=== PATIENT | male | born 1965 | race Caucasian/White ===

== ENCOUNTER 2021-11-17 14:38 | Observation (INO) | payer SELFPAY ==
[2021-11-17] MEDS ORDERED: SODIUM CHLORIDE 0.9% 500 ML 500 ML IV STA (15:07)
[2021-11-17] MEDS ORDERED: NITROGLYCERIN OINT 1 INCH/GM PACKET TOPICAL STA (15:07)
[2021-11-17] MEDS ORDERED: ASPIRIN 81 MG PO STA (15:07)
--- NOTE | 2021-11-17 15:08 | ED ---
General Adult HPI - General Chief complaint: Chest Pain Stated complaint: Chest Pain, Rapid Heart Rate Time Seen by Provider: 11/17/21 14:55 Source: patient, family, RN notes reviewed, old records reviewed Mode of arrival: wheelchair - History of Present Illness Initial comments: This is a 56-year-old male presents emergency Department with a past medical history significant for smoking and high blood pressure. Patient also has a family history of heart disease with his mother having a heart attack in the past. Patient comes in today because the last 2 days been having some left- sided chest pain that radiates to his shoulder. Patient states it comes and goes for the last 2 days. Patient states he is somewhat short of breath with it. Patient denies any diaphoretic episodes. Patient denies any nausea. Patient denies abdominal pain patient denies nausea vomiting diarrhea. Patient was any recent fever chills or cough. Patient denies any swelling to her legs or calf tenderness. 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 - Related Data Home Medications Medication Instructions Recorded Confirmed No Known Home Medications 11/17/21 11/17/21 Allergies Allergy/AdvReac Type Severity Reaction Status Date / Time No Known Allergies Allergy Verified 11/17/21 15:42 Review of Systems ROS Statement: Those systems with pertinent positive or pertinent negative responses have been documented in the HPI. ROS Other: All systems not noted in ROS Statement are negative. Past Medical History Past Medical History: No Reported History History of Any Multi-Drug Resistant Organisms: None Reported Past Surgical History: Back Surgery Additional Past Surgical History / Comment(s): thumb Past Psychological History: No Psychological Hx Reported Smoking Status: Current every day smoker Past Alcohol Use History: None Reported Past Drug Use History: None Reported General Exam - General Exam Comments Initial Comments: GENERAL: Patient is well-developed and well-nourished. Patient is nontoxic and well- hydrated and is in mild distress. ENT: Neck is soft and supple. No significant lymphadenopathy is noted. Oropharynx is clear. Moist mucous membranes. Neck has full range of motion without eliciting any pain. EYES: The sclera were anicteric and conjunctiva were pink and moist. Extraocular movements were intact and pupils were equal round and reactive to light. Eyelids were unremarkable. PULMONARY: Unlabored respirations. Good breath sounds bilaterally. No audible rales rhonchi or wheezing was noted. CARDIOVASCULAR: There is a regular rate and rhythm without any murmurs gallops or rubs. ABDOMEN: Soft and nontender with normal bowel sounds. SKIN: Skin is clear with no lesions or rashes and otherwise unremarkable. NEUROLOGIC: Patient is alert and oriented x3. Cranial nerves II through XII are grossly intact. Motor and sensory are also intact. Normal speech, volume and content. Symmetrical smile. MUSCULOSKELETAL: Normal extremities with adequate strength and full range of motion. LYMPHATICS: No significant lymphadenopathy is noted PSYCHIATRIC: Normal psychiatric evaluation. Course Vital Signs 11/17/21 11/17/21 11/17/21 14:48 15:30 16:36 Temperature 98 F 98.7 F Pulse Rate 92 90 104 H Respiratory 18 18 18 Rate Blood Pressure 157/90 156/94 164/95 O2 Sat by Pulse 96 96 97 Oximetry Medical Decision Making - Medical Decision Making EKG shows sinus rhythm at 80 bpm AR interval is 193 QRS 97 Q-T intervals 341 QTC is 387. Patient's EKG shows no ST segment elevation or depression. Chest x-ray shows no acute abnormality. Patient received aspirin and Nitropaste to the emergency department. Patient stated that this seemed take away his pain currently. I decided to admit the patient secondary to his significant risk factors and the fact that he has not been worked up for this before. I spoke with Dr. Anguiano he agreed to admit the patient admitted the patient wrote admitting orders and consult to cardiology - Lab Data Result diagrams: 11/17/21 15:20 11/17/21 15:20 Lab Results 11/17/21 11/17/21 11/17/21 Range/Units 15:20 15:20 15:20 WBC 9.2 (3.8-10.6) k/uL RBC 5.63 (4.30-5.90) m/uL Hgb 16.7 (13.0-17.5) gm/dL Hct 51.9 (39.0-53.0) % MCV 92.2 (80.0-100.0) fL MCH 29.7 (25.0-35.0) pg MCHC 32.2 (31.0-37.0) g/dL RDW 12.7 (11.5-15.5) % Plt Count 309 (150-450) k/uL MPV 6.7 Neutrophils % 73 % Lymphocytes % 19 % Monocytes % 5 % Eosinophils % 1 % Basophils % 1 % Neutrophils # 6.8 (1.3-7.7) k/uL Lymphocytes # 1.8 (1.0-4.8) k/uL Monocytes # 0.5 (0-1.0) k/uL Eosinophils # 0.1 (0-0.7) k/uL Basophils # 0.1 (0-0.2) k/uL PT 10.6 (9.0-12.0) sec INR 1.0 (<1.2) APTT 24.9 (22.0-30.0) sec Sodium 139 (137-145) mmol/L Potassium 4.2 (3.5-5.1) mmol/L Chloride 102 (98-107) mmol/L Carbon Dioxide 30 (22-30) mmol/L Anion Gap 7 mmol/L BUN 25 H (9-20) mg/dL Creatinine 0.93 (0.66-1.25) mg/dL Est GFR (CKD-EPI)AfAm >90 (>60 ml/min/1.73 sqM) Est GFR (CKD-EPI)NonAf >90 (>60 ml/min/1.73 sqM) Glucose 104 H (74-99) mg/dL Calcium 10.3 H (8.4-10.2) mg/dL Magnesium 2.0 (1.6-2.3) mg/dL Total Bilirubin 0.7 (0.2-1.3) mg/dL AST 36 (17-59) U/L ALT 41 (4-49) U/L Alkaline Phosphatase 64 (38-126) U/L Troponin I (0.000-0.034) ng/mL Total Protein 8.3 H (6.3-8.2) g/dL Albumin 4.9 (3.5-5.0) g/dL 11/17/21 Range/Units 15:20 WBC (3.8-10.6) k/uL RBC (4.30-5.90) m/uL Hgb (13.0-17.5) gm/dL Hct (39.0-53.0) % MCV (80.0-100.0) fL MCH (25.0-35.0) pg MCHC (31.0-37.0) g/dL RDW (11.5-15.5) % Plt Count (150-450) k/uL MPV Neutrophils % % Lymphocytes % % Monocytes % % Eosinophils % % Basophils % % Neutrophils # (1.3-7.7) k/uL Lymphocytes # (1.0-4.8) k/uL Monocytes # (0-1.0) k/uL Eosinophils # (0-0.7) k/uL Basophils # (0-0.2) k/uL PT (9.0-12.0) sec INR (<1.2) APTT (22.0-30.0) sec Sodium (137-145) mmol/L Potassium (3.5-5.1) mmol/L Chloride (98-107) mmol/L Carbon Dioxide (22-30) mmol/L Anion Gap mmol/L BUN (9-20) mg/dL Creatinine (0.66-1.25) mg/dL Est GFR (CKD-EPI)AfAm (>60 ml/min/1.73 sqM) Est GFR (CKD-EPI)NonAf (>60 ml/min/1.73 sqM) Glucose (74-99) mg/dL Calcium (8.4-10.2) mg/dL Magnesium (1.6-2.3) mg/dL Total Bilirubin (0.2-1.3) mg/dL AST (17-59) U/L ALT (4-49) U/L Alkaline Phosphatase (38-126) U/L Troponin I <0.012 (0.000-0.034) ng/mL Total Protein (6.3-8.2) g/dL Albumin (3.5-5.0) g/dL Disposition Clinical Impression: Chest pain Disposition: ADMITTED IP TO THIS [facility] Referrals: None,Stated [Primary Care Provider] - 1-2 days Time of Disposition: 16:45
[2021-11-17 15:27] LABS: Basophils # (A) 0.1 k/uL (0-0.2); Basophils % (A) 1 %; Eosinophils # (A) 0.1 k/uL (0-0.7); Eosinophils % (A) 1 %; HCT 51.9 % (39.0-53.0); HGB 16.7 gm/dL (13.0-17.5); Lymphocytes # (A) 1.8 k/uL (1.0-4.8); Lymphocytes % (A) 19 %; MCH 29.7 pg (25.0-35.0); MCHC 32.2 g/dL (31.0-37.0); MCV 92.2 fL (80.0-100.0); Mean Platelet Volume 6.7; Monocytes # (A) 0.5 k/uL (0-1.0); Monocytes % (A) 5 %; Neutrophils # (A) 6.8 k/uL (1.3-7.7); Neutrophils % (A) 73 %; Platelet Count 309 k/uL (150-450); RBC 5.63 m/uL (4.30-5.90); RDW 12.7 % (11.5-15.5); WBC 9.2 k/uL (3.8-10.6)
[2021-11-17 15:35] LABS: Partial Thromboplastin Time 24.9 sec (22.0-30.0); Prothrombin Time 10.6 sec (9.0-12.0)
[2021-11-17 15:36] LABS: ALT 41 U/L (4-49); AST 36 U/L (17-59); African American GFR (CKD) >90 (>60 ml/min/1.73 sqM); Albumin 4.9 g/dL (3.5-5.0); Alkaline Phosphatase 64 U/L (38-126); Anion Gap 7 mmol/L; Blood Urea Nitrogen 25 mg/dL (9-20); Calcium 10.3 mg/dL (8.4-10.2); Carbon Dioxide 30 mmol/L (22-30); Chloride 102 mmol/L (98-107); Glucose 104 mg/dL (74-99); Non-African American GFR(CKD) >90 (>60 ml/min/1.73 sqM); Potassium 4.2 mmol/L (3.5-5.1); Sodium 139 mmol/L (137-145); Total Bilirubin 0.7 mg/dL (0.2-1.3); Total Protein 8.3 g/dL (6.3-8.2)
--- NOTE | 2021-11-17 15:55 | XR ---
EXAMINATION TYPE: XR chest 2V DATE OF EXAM: 11/17/2021 COMPARISON: None available HISTORY: Chest pain TECHNIQUE: Frontal and lateral views of the chest are obtained. FINDINGS: Grossly unremarkable lungs. No pleural effusion or pneumothorax. No cardiomegaly. Degenerative change s of the thoracic spine. IMPRESSION: No acute cardiopulmonary process.
[2021-11-17] MEDS ORDERED: NITROGLYCERIN SL TABS 0.4 MG TAB SUBLINGUAL PRN (16:53)
[2021-11-17] MEDS: NITROGLYCERIN OINT 1 INCH/GM PACKET TOPICAL SCH (19:09)
[2021-11-18] MEDS: NITROGLYCERIN OINT 1 INCH/GM PACKET TOPICAL SCH ×2 (01:10→05:57)
[2021-11-18 07:50] VITALS: PULSE 77
[2021-11-18] MEDS ORDERED: ASPIRIN 81 MG PO SCH (09:00)
[2021-11-18] MEDS ORDERED: ASPIRIN 325 MG TAB PO SCH (09:00)
--- NOTE | 2021-11-18 09:26 | P.CRDCN ---
History of Present Illness History of present illness: This is a 56 year old male with a past medical history of chronic nicotine dependence spoke 1.5PPD, hypertension. 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 We are asked to see in consultation for chest pain. He presents with left sided chest discomfort for 3 days. He works as a [employer]. His pain is non-exertional, non-radiating. It is reproducible on exam, tender to palpation to the left side of his chest. He denies any injury. He denies any associated symptoms. No shortness of breath, nausea, vomiting, diaphoresis, lightheadedness, dizziness, syncope or near syncope. He was recently diagnosed with hypertension, yesterday started on anti- hypertensive medication, unsure what medication. He is a current every day smoker smokes 1.5PP. He denies alcohol or illicit drug use He denies history of CAD, SC, Stroke, or diabetes. Family history includes his mother had a SC in her 70s. DIAGNOSTICS EKG reveals sinus rhythm, heart rate 88, T wave inversion in lead aVL, LVH, no significant ST-T wave abnormalities she just ischemia Telemetry tracings indicate sinus mechanism, heart rates [id number] Chest xray no acute cardiopulmonary process Laboratory reviewed, troponin negative 3, sodium 139, potassium 4.2, BUN 24, serum current 0.9, CBC unremarkable Current home medications include an antihypertensive patient is unsure of what medication this is REVIEW OF SYSTEMS At the time of my exam: CONSTITUTIONAL: Denies fever or chills. CARDIOVASCULAR: Denies chest pain, shortness of breath, orthopnea, PND or palpitations. RESPIRATORY: Denies cough. GASTROINTESTINAL: Denies abdominal pain, diarrhea, constipation, nausea or vomiting. MUSCULOSKELETAL: Denies myalgias. NEUROLOGIC: Denies numbness, tingling, headache or weakness. ENDOCRINE: Denies fatigue, weight change, polydipsia or polyurina. GENITOURINARY: Denies burning, hematuria or urgency with micturation. HEMATOLOGIC: Denies history of anemia or bleeding. PHYSICAL EXAMINATION Blood pressure 129/76, heart rate 77, afebrile, oxygen saturation is 95% on room air CONSTITUTIONAL: No apparent distress. HEENT: Head is normocephalic. Pupils are equal, round. Sclerae anicteric. Mucous membranes of the mouth are moist. No JVD. No carotid bruit. CHEST EXAMINATION: Lungs are diminished, decreased air exchange noted bilaterally to auscultation. There is left sided chest wall tenderness noted on palpation HEART EXAMINATION: Regular rate and rhythm. S1, S2 heard. No murmurs, gallops or rub. ABDOMEN: Soft, nontender. Positive bowel sounds. EXTREMITIES: 2+ peripheral pulses, no lower extremity edema and no calf tenderness. SKIN: Warm, dry NEUROLOGIC EXAMINATION: Patient is awake, alert and oriented x3. ASSESSMENT Chest pain, atypical, acute coronary syndrome has ruled out. Hypertension Chronic nicotine dependence Family history of coronary artery disease PLAN An acute coronary event has been ruled out with no EKG evidence of ischemia and negative cardiac enzymes. Perform Stress Echo test to assess for stress induced cardiac ischemia. If abnormal will consider coronary angiography. Smoking cessation discussed and highly recommended. If stress test is negative, no further inpatient workup from a cardiology pers pective for chest pain. Thank you kindly for this consultation. Nurse practitioner note has been reviewed by physician. Signing provider agrees with the documented findings, assessment, and plan of care. Past Medical History Past Medical History: Hypertension History of Any Multi-Drug Resistant Organisms: None Reported Past Surgical History: Back Surgery Additional Past Surgical History / Comment(s): thumb Past Anesthesia/Blood Transfusion Reactions: No Reported Reaction Past Psychological History: No Psychological Hx Reported Smoking Status: Current every day smoker Past Alcohol Use History: None Reported Past Drug Use History: Marijuana Additional Drug Use History / Comment(s): smokes 1.5 packs per day. occasional marijuana use. - Past Family History Mother Family Medical History: Cancer, Hypertension Additional Family Medical History / Comment(s): at age 73. Father Family Medical History: Cancer Additional Family Medical History / Comment(s): passed at age 50 of Cancer Medications and Allergies Home Medications Medication Instructions Recorded Confirmed Type No Known Home Medications 11/17/21 11/17/21 History Allergies Allergy/AdvReac Type Severity Reaction Status Date / Time No Known Allergies Allergy Verified 11/17/21 15:42 Physical Exam Vitals: Vital Signs Temp Pulse Pulse Resp BP BP BP 11/18/21 07:56 77 11/18/21 07:48 98.3 F 77 16 129/76 11/18/21 05:38 78 128/73 11/18/21 01:08 98.3 F 69 20 111/68 11/17/21 20:43 98.1 F 88 20 117/73 11/17/21 16:36 98.7 F 104 H 18 164/95 11/17/21 15:30 90 18 156/94 11/17/21 14:48 98 F 92 18 157/90 Pulse Ox 11/18/21 07:56 11/18/21 07:48 94 L 11/18/21 05:38 11/18/21 01:08 94 L 11/17/21 20:43 94 L 11/17/21 16:36 97 11/17/21 15:30 96 11/17/21 14:48 96 Intake and Output 11/17/21 11/18/21 11/18/21 22:59 06:59 14:59 Other: # Voids 0 1 Weight 75.296 kg Results 11/17/21 15:20 11/17/21 15:20 Cardiac Enzymes 11/17/21 11/17/21 11/17/21 Range/Units 15:20 15:20 18:04 AST 36 (17-59) U/L Troponin I <0.012 <0.012 (0.000-0.034) ng/mL 11/17/21 Range/Units 22:07 AST (17-59) U/L Troponin I <0.012 (0.000-0.034) ng/mL Coagulation 11/17/21 Range/Units 15:20 PT 10.6 (9.0-12.0) sec APTT 24.9 (22.0-30.0) sec CBC 11/17/21 Range/Units 15:20 WBC 9.2 (3.8-10.6) k/uL RBC 5.63 (4.30-5.90) m/uL Hgb 16.7 (13.0-17.5) gm/dL Hct 51.9 (39.0-53.0) % Plt Count 309 (150-450) k/uL Comprehensive Metabolic Panel 11/17/21 Range/Units 15:20 Sodium 139 (137-145) mmol/L Potassium 4.2 (3.5-5.1) mmol/L Chloride 102 (98-107) mmol/L Carbon Dioxide 30 (22-30) mmol/L BUN 25 H (9-20) mg/dL Creatinine 0.93 (0.66-1.25) mg/dL Glucose 104 H (74-99) mg/dL Calcium 10.3 H (8.4-10.2) mg/dL AST 36 (17-59) U/L ALT 41 (4-49) U/L Alkaline Phosphatase 64 (38-126) U/L Total Protein 8.3 H (6.3-8.2) g/dL Albumin 4.9 (3.5-5.0) g/dL Current Medications Generic Name Dose Route Start Last Admin Trade Name Freq PRN Reason Stop Dose Admin Aspirin 81 mg 11/18/21 09:00 Aspirin 81 Mg PO DAILY [facility] Nitroglycerin 0.4 mg 11/17/21 16:53 Nitroglycerin Sl Tabs 0.4 Mg Tab SUBLINGUAL Q5M PRN Chest Pain Nitroglycerin 1 inch 11/17/21 18:00 11/18/21 05:57 Nitroglycerin Oint 1 Inch/Gm Packet TOPICAL 1 inch Q6HR SUKUMAR Administration Intake and Output 11/17/21 11/18/21 11/18/21 22:59 06:59 14:59 Other: # Voids 0 1 Weight 75.296 kg 11/17/21 15:20 11/17/21 15:20
[2021-11-18 09:28] LABS: Chol/HDL Ratio 5.68 Ratio; LDL Cholesterol,Calculated 165.5 mg/dL (0.0-131.0)
--- NOTE | 2021-11-18 11:21 | P.STRESS ---
- Stress Test Note Stress Test Results/Findings: Exam Performed: stress echo exercise Exam Date: 11/18/21 Reason for Exam: cp Height: 5 ft 11 in Weight: 75.3 kg Protocol: cj Stage: 3 Duration of Exercise: 9 jaime Resting Heart Rate: 78 Resting Blood Pressure: 148/76 Maximum Achieved Heart Rate: 155 Maximum Achieved Blood Pressure: 209/74 85% PMHR: 140 100% PMHR: 165 METS: 7.5 Technologist Comment: Stress Test Results/Findings: This is a 56-year-old gentleman with history of hypertension, family history of ischemic heart disease and smoking history, being evaluated for cardiac status. Patient is admitted to the hospital with chest pain. Stress data: Baseline EKG showed sinus rhythm. Blood pressure at rest is 148/76 with a pulse rate of 78. Patient walked on a Cj protocol for 9 minutes achieving a maximum heart rate of 155 with a blood pressure of 209/74. EKGs taken during and after the x-ray did not reveal any infiltrate changes from baseline. Echo data: Baseline echo images showed normal wall motion and thickening. Exercise echo images showed augmentation of wall motion and thickening in all the segments. Final impression: #1. Negative stress test #2. Negative stress echo.
[2021-11-18 14:07] VITALS: BP 116/75; RESP 17; TEMP 98.2
--- NOTE | 2021-11-18 17:21 | HP ---
HISTORY AND PHYSICAL This is a 56-year-old white male, smoking, questionable hypertension of recent onset, family history of heart disease. He came in with some chest pain. The pain was reproducible in his chest when you pushed on his chest. He underwent a stress echo today, which was normal. He has been cleared for discharge. He has a negative D- dimer, negative chest x-ray. Home medications are negative. Allergies negative. Fourteen-point review of systems otherwise negative. 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 He was pulling something heavy, pulled something in his chest. He is tender on his chest, reproducible pain. On physical examination, vital signs are stable. Afebrile. Cardiovascular S1, S2. Lungs clear. GI soft. Hematology negative Homans. Psych fair mood and affect. Temperature 98.7, blood pressure 150s to 160s over 90 to 95, pulse 80s and 90s, respiratory rate 16 to 18. ASSESSMENT: 1. Chest pain secondary to musculoskeletal costochondritis, as he was tender and had reproducible pain. 2. Hypertension acceleration may be contributing to his chest pain. He has been started on a blood pressure pill, taking metoprolol 50 b.i.d., for which he just took one pill before he came in. He was told to continue with this as an outpatient until seen by primary care. MMODL / IJN: [id number] /
== END 2021-11-18 17:34 | disposition home or self-care (01) ==
LOC: EC 14:38 → 6NMEDSUR 17:01
PROVIDERS: ADMIT Family Medicine; ATTEND Family Medicine
DX: M94.0 Chondrocostal junction syndrome [Tietze] (principal); I10 Essential (primary) hypertension; F17.210 Nicotine dependence, cigarettes, uncomplicated; Z98.890 Other specified postprocedural states; Z82.49 Family history of ischemic heart disease and other diseases of the circulatory system; Z80.9 Family history of malignant neoplasm, unspecified
CPT/HCPCS: 96361 ×2; 96360; 99285; 36415; 93005; 93351; 85379; 80061; 80053; 83735; 84484; 85025; 85610; 85730; 71046; G0378 ×2

== ENCOUNTER 2024-06-19 13:20 | Inpatient (IN) | payer SELFPAY ==
--- NOTE | 2024-06-19 14:01 | ED ---
Abdominal Pain HPI - General Chief Complaint: Abdominal Pain Stated Complaint: ABD PAIN Time Seen by Provider: 06/19/24 13:41 Source: patient, RN notes reviewed, old records reviewed Mode of arrival: ambulatory Limitations: no limitations - History of Present Illness Initial Comments: This is a 59-year-old male to ER with 3 to 4 days of severe abdominal pain right lower quadrant abdominal pain and feels that he has a fever shaking and chills nausea positive vomiting no appetite MD Complaint: abdominal pain -: days(s) Location: RLQ Radiation: RLQ Migration to: RLQ, suprapubic Severity scale (1-10): 7 Quality: fullness, sharp Consistency: constant Improves With: nothing Worsens With: nothing Associated Symptoms: nausea, vomiting Treatments Prior to Arrival: other - Related Data Home Medications Medication Instructions Recorded Confirmed Atorvastatin [Lipitor] 40 mg PO DAILY 06/19/24 06/19/24 Losartan [Cozaar] 50 mg PO DAILY 06/19/24 06/19/24 Allergies Allergy/AdvReac Type Severity Reaction Status Date / Time No Known Allergies Allergy Verified 06/26/24 15:21 Review of Systems ROS Statement: Those systems with pertinent positive or pertinent negative responses have been documented in the HPI. ROS Other: All systems not noted in ROS Statement are negative. Past Medical History Past Medical History: Hyperlipidemia, Hypertension History of Any Multi-Drug Resistant Organisms: None Reported Past Surgical History: Back Surgery Additional Past Surgical History / Comment(s): thumb Past Anesthesia/Blood Transfusion Reactions: No Reported Reaction Past Psychological History: No Psychological Hx Reported Smoking Status: Current every day smoker Past Alcohol Use History: None Reported Past Drug Use History: Marijuana - Past Family History Mother Family Medical History: Cancer, Hypertension Additional Family Medical History / Comment(s): at age 73. Father Family Medical History: Cancer Additional Family Medical History / Comment(s): passed at age 50 of Cancer General Exam Limitations: no limitations General appearance: alert, in no apparent distress Head exam: Present: atraumatic, normocephalic, normal inspection Eye exam: Present: normal appearance, PERRL, EOMI. Absent: scleral icterus, conjunctival injection, periorbital swelling ENT exam: Present: normal exam, mucous membranes moist Neck exam: Present: normal inspection. Absent: tenderness, meningismus, lymphadenopathy Respiratory exam: Present: normal lung sounds bilaterally. Absent: respiratory distress, wheezes, rales, rhonchi, stridor Cardiovascular Exam: Present: regular rate, normal rhythm, normal heart sounds. Absent: systolic murmur, diastolic murmur, rubs, gallop, clicks GI/Abdominal exam: Present: soft, normal bowel sounds. Absent: distended, tenderness, guarding, rebound, rigid Extremities exam: Present: normal inspection, full ROM, normal capillary refill. Absent: tenderness, pedal edema, joint swelling, calf tenderness Back exam: Present: normal inspection Neurological exam: Present: alert, oriented X3, CN II-XII intact Psychiatric exam: Present: normal affect, normal mood Skin exam: Present: warm, dry, intact, normal color. Absent: rash Course Vital Signs 06/19/24 06/19/24 06/19/24 13:37 15:48 17:00 Temperature 99.8 F H 99.8 F H 99.7 F H Pulse Rate 113 H 93 97 Pulse Rate [ Supine] Respiratory 20 18 18 Rate Blood Pressure 130/77 137/80 132/79 Blood Pressure [Right Arm] O2 Sat by Pulse 95 94 L 97 Oximetry 06/19/24 17:15 Temperature 99.9 F H Pulse Rate Pulse Rate [ 86 Supine] Respiratory 16 Rate Blood Pressure Blood Pressure 128/69 [Right Arm] O2 Sat by Pulse 95 Oximetry - Reevaluation(s) Reevaluation #1: 06/19/24 14:00 Records reviewed Reevaluation #2: 06/19/24 16:10 patient with pain improved Reevaluation #3: 06/19/24 16:10 patient informed of results and questions answered Reevaluation #4: Was pt. sent in by a medical professional or institution (, PA, RN PRACTITIONER, urgent care, hospital, or usp...) When possible be specific @ -no Did you speak to anyone other than the patient for history (EMS, parent, family, police, friend...)? What history was obtained from this source @ -no Did you review nursing and triage notes (agree or disagree)? Why? @ -agree Are old charts reviewed (outside hosp., previous admission, EMS record, old EKG, old radiological studies, urgent care reports/EKG's, usp records)? Report findings @ -yes Differential Diagnosis (chest pain, altered mental status, abdominal pain women, abdominal pain men, vaginal bleeding, weakness, fever, dyspnea, syncope, headache, dizziness, GI bleed, back pain, seizure, CVA, palpatations, mental health, musculoskeletal)? @ -prior EKG interpreted by me (3pts min.). @ -yes X-rays interpreted by me (1pt min.). @ -no CT interpreted by me (1pt min.). @ -Yes acute appendicitis U/S interpreted by me (1pt. min.). @ -no What testing was considered but not performed or refused? (CT, X-rays, U/S, labs )? Why? @ -none What meds were considered but not given or refused? Why? @ -none Did you discuss the management of the patient with other professionals (professionals i.e. , PA, RN PRACTITIONER, lab, RT, psych nurse, child welfare social worker, insurance underwriter sales, teacher, staff submarine warfare officer, lining caser)? Give summary @ -no Was smoking cessation discussed for >3mins.? @ -no Was critical care preformed (if so, how long)? @ -no Were there social determinants of health that impacted care today? How? (Homelessness, low income, unemployed, alcoholism, drug addiction, transportation, low edu. Level, literacy, decrease access to med. care, group home, rehab)? @ -none Was there de-escalation of care discussed even if they declined (Discuss DNR or withdrawal of care, Hospice)? DNR status @ -no What co-morbidities impacted this encounter? (DM, HTN, Smoking, COPD, CAD, Cancer, CVA, ARF, Chemo, Hep., AIDS, mental health diagnosis, sleep apnea, morbid obesity)? @ -none Was patient admitted / discharged? Hospital course, mention meds given and route, prescriptions, significant lab abnormalities, going to OR and other pertinent info. @ - 59 male to ER for evaluation 2 to 3 days of abdominal pain right lower quadrant positive for acute appendicitis will admit for IV antibiotics surgical evaluation and treatment Admitted Undiagnosed new problem with uncertain prognosis? @ -no Drug Therapy requiring intensive monitoring for toxicity (Heparin, Nitro, Insulin, Cardizem)? @ -no Were any procedures done? @ -no Diagnosis/symptom? @ -abdominal pain acute appendicitis Acute, or Chronic, or Acute on Chronic? @ -Acute Uncomplicated (without systemic symptoms) or Complicated (systemic symptoms)? @ -Complicated Side effects of treatment? @ -no Exacerbation, Progression, or Severe Exacerbation? @ -exacerbation Poses a threat to life or bodily function? How? (Chest pain, [place], [place], pneumonia, PE, COPD, DKA, ARF, appy, cholecystitis, CVA, Diverticulitis, Homicidal, Suicidal, threat to staff... and all critical care pts) @ -yes yes acute appendicitis Reevaluation #5: Differential Abdominal Pain Men: Appendicitis, cholecystitis, diverticulosis, ischemic bowel, pancreatitis, hepatitis, UTI, gastroenteritis, AAA, incarcerated hernia, bowel obstruction, constipation, inflammatory bowel, hepatitis, peptic ulcer disease, splenic infarction, perforated viscus, testicular torsion, this is not meant to be an all-inclusive list - Consultations Consultation #1: Spoke with Dr. Fry who agrees to admit this patient Medical Decision Making - Medical Decision Making 59 male to ER for evaluation 2 to 3 days of abdominal pain right lower quadrant positive for acute appendicitis will admit for IV antibiotics surgical evaluation and treatment - Lab Data Result diagrams: 06/26/24 03:57 06/26/24 03:57 Lab Results 06/19/24 06/19/24 06/19/24 Range/Units 14:03 14:03 14:03 WBC 21.0 H (3.8-10.6) k/uL RBC 5.39 (4.30-5.90) m/uL Hgb 16.5 (13.0-17.5) gm/dL Hct 49.9 (39.0-53.0) % MCV 92.7 (80.0-100.0) fL MCH 30.6 (25.0-35.0) pg MCHC 33.0 (31.0-37.0) g/dL RDW 12.6 (11.5-15.5) % Plt Count 265 (150-450) k/uL MPV 6.6 Neutrophils % 86 % Lymphocytes % 6 % Monocytes % 6 % Eosinophils % 1 % Basophils % 0 % Neutrophils # 18.1 H (1.3-7.7) k/uL Lymphocytes # 1.3 (1.0-4.8) k/uL Monocytes # 1.2 H (0-1.0) k/uL Eosinophils # 0.2 (0-0.7) k/uL Basophils # 0.0 (0-0.2) k/uL PT 11.5 (10.0-12.5) sec INR 1.1 (<1.2) APTT 28.4 (22.0-30.0) sec Sodium (137-145) mmol/L Potassium (3.5-5.1) mmol/L Chloride (98-107) mmol/L Carbon Dioxide (22-30) mmol/L Anion Gap mmol/L BUN (9-20) mg/dL Creatinine (0.66-1.25) mg/dL Est GFR (CKD-EPI)AfAm (>60 ml/min/1.73 sqM) Est GFR (CKD-EPI)NonAf (>60 ml/min/1.73 sqM) Glucose (74-99) mg/dL Plasma Lactic Acid Brendan (0.7-2.0) mmol/L Calcium (8.4-10.2) mg/dL Total Bilirubin (0.2-1.3) mg/dL AST (17-59) U/L ALT (4-49) U/L Alkaline Phosphatase (38-126) U/L Total Protein (6.3-8.2) g/dL Albumin (3.5-5.0) g/dL Amylase (30-110) U/L Lipase (23-300) U/L Urine Color Colorless Urine Appearance Clear (Clear) Urine pH 7.0 (5.0-8.0) Ur Specific [place] 1.010 (1.001-1.035) Urine Protein Negative (Negative) Urine Glucose (UA) Negative (Negative) Urine Ketones Negative (Negative) Urine Blood Small H (Negative) Urine Nitrite Negative (Negative) Urine Bilirubin Negative (Negative) Urine Urobilinogen <2.0 (<2.0) mg/dL Ur Leukocyte Esterase Negative (Negative) Urine RBC 14 H (0-5) /hpf Urine WBC 1 (0-5) /hpf 06/19/24 06/19/24 Range/Units 14:03 14:03 WBC (3.8-10.6) k/uL RBC (4.30-5.90) m/uL Hgb (13.0-17.5) gm/dL Hct (39.0-53.0) % MCV (80.0-100.0) fL MCH (25.0-35.0) pg MCHC (31.0-37.0) g/dL RDW (11.5-15.5) % Plt Count (150-450) k/uL MPV Neutrophils % % Lymphocytes % % Monocytes % % Eosinophils % % Basophils % % Neutrophils # (1.3-7.7) k/uL Lymphocytes # (1.0-4.8) k/uL Monocytes # (0-1.0) k/uL Eosinophils # (0-0.7) k/uL Basophils # (0-0.2) k/uL PT (10.0-12.5) sec INR (<1.2) APTT (22.0-30.0) sec Sodium 135 L (137-145) mmol/L Potassium 4.5 (3.5-5.1) mmol/L Chloride 101 (98-107) mmol/L Carbon Dioxide 27 (22-30) mmol/L Anion Gap 7 mmol/L BUN 15 (9-20) mg/dL Creatinine 0.89 (0.66-1.25) mg/dL Est GFR (CKD-EPI)AfAm >90 (>60 ml/min/1.73 sqM) Est GFR (CKD-EPI)NonAf >90 (>60 ml/min/1.73 sqM) Glucose 116 H (74-99) mg/dL Plasma Lactic Acid Brendan 1.3 (0.7-2.0) mmol/L Calcium 9.4 (8.4-10.2) mg/dL Total Bilirubin 1.2 (0.2-1.3) mg/dL AST 29 (17-59) U/L ALT 32 (4-49) U/L Alkaline Phosphatase 63 (38-126) U/L Total Protein 7.5 (6.3-8.2) g/dL Albumin 4.6 (3.5-5.0) g/dL Amylase 56 (30-110) U/L Lipase 69 (23-300) U/L Urine Color Urine Appearance (Clear) Urine pH (5.0-8.0) Ur Specific [place] (1.001-1.035) Urine Protein (Negative) Urine Glucose (UA) (Negative) Urine Ketones (Negative) Urine Blood (Negative) Urine Nitrite (Negative) Urine Bilirubin (Negative) Urine Urobilinogen (<2.0) mg/dL Ur Leukocyte Esterase (Negative) Urine RBC (0-5) /hpf Urine WBC (0-5) /hpf - Radiology Data Radiology results: report reviewed (CT abd pelvis positive for acute appendicitis), image reviewed Disposition Clinical Impression: Abdominal pain, Acute appendicitis Disposition: ADMITTED IP TO THIS HOSP Condition: Serious Is patient prescribed a controlled substance at d/c from ED?: No Time of Disposition: 16:30
[2024-06-19] MEDS: ONDANSETRON 4 MG/2 ML VIAL IVP STA (14:40)
[2024-06-19] MEDS: ACETAMINOPHEN TAB 500 MG TAB PO STA (14:41)
[2024-06-19] MEDS: IBUPROFEN 800 MG TAB PO STA (14:41)
[2024-06-19] MEDS: SODIUM CHLORIDE 0.9% 1,000 ML IV STA ×2 (14:42)
[2024-06-19 14:43] LABS: Basophils % (A) 0 %; Eosinophils # (A) 0.2 k/uL (0-0.7); Eosinophils % (A) 1 %; HCT 49.9 % (39.0-53.0); HGB 16.5 gm/dL (13.0-17.5); Lymphocytes # (A) 1.3 k/uL (1.0-4.8); Lymphocytes % (A) 6 %; MCH 30.6 pg (25.0-35.0); MCV 92.7 fL (80.0-100.0); Mean Platelet Volume 6.6; Monocytes # (A) 1.2 k/uL (0-1.0); Monocytes % (A) 6 %; Neutrophils # (A) 18.1 k/uL (1.3-7.7); Neutrophils % (A) 86 %; Platelet Count 265 k/uL (150-450); RBC 5.39 m/uL (4.30-5.90); RDW 12.6 % (11.5-15.5)
[2024-06-19] MEDS: MORPHINE SULFATE 4 MG/ML SYRINGE IVP STA (14:56)
[2024-06-19] MEDS: PANTOPRAZOLE 40 MG/10 ML VIAL IVP STA (14:57)
[2024-06-19 14:58] LABS: INR 1.1 (<1.2); Partial Thromboplastin Time 28.4 sec (22.0-30.0); Prothrombin Time 11.5 sec (10.0-12.5)
[2024-06-19 15:07] LABS: ALT 32 U/L (4-49); African American GFR (CKD) >90 (>60 ml/min/1.73 sqM); Albumin 4.6 g/dL (3.5-5.0); Amylase 56 U/L (30-110); Anion Gap 7 mmol/L; Blood Urea Nitrogen 15 mg/dL (9-20); Calcium 9.4 mg/dL (8.4-10.2); Carbon Dioxide 27 mmol/L (22-30); Chloride 101 mmol/L (98-107); Glucose 116 mg/dL (74-99); Lipase 69 U/L (23-300); Non-African American GFR(CKD) >90 (>60 ml/min/1.73 sqM); Sodium 135 mmol/L (137-145); Total Bilirubin 1.2 mg/dL (0.2-1.3); Total Protein 7.5 g/dL (6.3-8.2)
[2024-06-19 15:13] LABS: AST 29 U/L (17-59); Alkaline Phosphatase 63 U/L (38-126); Potassium 4.5 mmol/L (3.5-5.1)
--- NOTE | 2024-06-19 15:29 | CT ---
EXAMINATION TYPE: CT abdomen pelvis w con CT DLP: 932.5 mGycm, Automated exposure control for dose reduction was used. DATE OF EXAM: 06/19/2024 3:20 PM COMPARISON: None CLINICAL INDICATION:Male, 59 years old with history of abdominal pain; Pt c/o RLQ pain with rebound t enderness and lowgrade fever TECHNIQUE: Standard CT of the abdomen and pelvis following the administration of 100 cc of Isovue 3 00 IV contrast material. Coronal and sagittal reformats were performed. FINDINGS: LOWER CHEST: Minimal posterior dependent subsegmental atelectasis is noted. ABDOMEN LIVER: Unremarkable GALLBLADDER AND BILE DUCTS: Unremarkable. PANCREAS: Unremarkable. SPLEEN: Unremarkable. ADRENAL GLANDS: Unremarkable. KIDNEYS AND URETERS: No evidence of hydronephrosis. The kidneys enhance symmetrically. Contrast is de monstrated within both collecting systems on the delayed phase. Nonobstructive right renal lower pole 3 mm metallic us. Nonobstructive left lower pole 5 mm calculus. PELVIS BLADDER: Unremarkable REPRODUCTIVE: Prostate is enlarged in size measuring 4.8 cm in transverse dimension. ABDOMEN & PELVIS STOMACH AND BOWEL: Stomach and duodenum are unremarkable. Dilated appendix measuring up to 1.2 cm in diameter with multiple appendicoliths. There is a 9 mm appendicolith at the base. Surrounding fat str anding and fluid identified. No free air. No evidence of bowel obstruction. PERITONEUM: No evidence of pneumoperitoneum. Trace free fluid in the right lower quadrant. VASCULATURE: Mild atherosclerotic calcifications are present throughout the abdominal aorta and its b ranches. No evidence of aortic aneurysm. Pelvic phleboliths. MUSCULOSKELETAL: No acute osseous abnormalities. Degenerative changes of the bilateral SI joints with anterior bridging. Multilevel degenerative changes of the visualized spine. Grade 1 anterolisthesis of L5 on S1 with bilateral pars defects. Chronic-appearing anterior wedging of the L1 vertebral body. No retropulsion. LYMPH NODES: No evidence for lymphadenopathy. SOFT TISSUE/ABDOMINAL WALL: Unremarkable IMPRESSION: 1. Acute uncomplicated appendicitis. 2. Nonobstructive bilateral renal calculi. Findings called to discuss with Dr. Kang at 3:27 PM on 06/19/2024. [facility], , 06/19/2024 3:27 PM
[2024-06-19 15:31] LABS: Appearance,Urine Clear (Clear); Bilirubin,Urine Negative (Negative); Blood,Urine Small (Negative); Color,Urine Colorless; Glucose,Urine (UA) Negative (Negative); Ketones,Urine Negative (Negative); Leukocyte Esterase,Urine Negative (Negative); Nitrite,Urine Negative (Negative); Protein,Urine Negative (Negative); RBC,Urine 14 /hpf (0-5); Urobilinogen,Urine <2.0 mg/dL (<2.0); WBC,Urine 1 /hpf (0-5)
[2024-06-19] MEDS ORDERED: ONDANSETRON 4 MG/2 ML VIAL IVP PRN (16:07)
[2024-06-19] MEDS ORDERED: NALOXONE 0.4 MG/ML 1 ML VIAL IV PRN (16:07)
[2024-06-19] MEDS: AMPICILLIN-SULBACTAM 3 GM in SODIUM CHLORIDE 0.9% 100 ML IVPB STA (16:35)
[2024-06-19] MEDS: IV FLUID CONTINUATION 1,000 ML IV ONE (17:17)
[2024-06-19] MEDS: LACTATED RINGERS 1,000 ML BAG IV STA (17:41)
[2024-06-19] MEDS ORDERED: fentaNYL (PF) 50 MCG/ML 2 ML AMP ONE (18:01)
[2024-06-19] MEDS ORDERED: GLYCOPYRROLATE 0.2 MG/ML 2 ML VIAL ONE (18:01)
[2024-06-19] MEDS ORDERED: ROCURONIUM 10 MG/ML (5 ML VIAL) IV ONE (18:01)
[2024-06-19] MEDS ORDERED: ONDANSETRON 4 MG/2 ML VIAL ONE (18:01)
[2024-06-19] MEDS ORDERED: KETOROLAC 15 MG/ML 1 ML VIAL ONE (18:01)
[2024-06-19] MEDS ORDERED: LIDOCAINE 1% INJ 10MG/ML (20 ML MDV) ONE (18:01)
[2024-06-19] MEDS ORDERED: DEXAMETHASONE SOD PHOSPHATE 4 MG/ML 1 ML VIAL ONE (18:01)
[2024-06-19] MEDS ORDERED: SUCCINYLCHOLINE CHLORIDE 200 MG/10 ML VIAL IV ONE (18:01)
[2024-06-19] MEDS ORDERED: PROPOFOL 10 MG/ML 20 ML VIAL IV ONE (18:01)
[2024-06-19] MEDS ORDERED: HEPARIN SODIUM,PORCINE 5,000 UNIT/ML 1 ML VIAL ONE (18:01)
[2024-06-19] MEDS ORDERED: ceFAZolin 1 GM/50 ML BAG (PMX) ONE (18:01)
[2024-06-19] MEDS ORDERED: NEOSTIGMINE 1 MG/ML 10 ML VIAL ONE (18:01)
[2024-06-19] MEDS ORDERED: MIDAZOLAM 2 MG/2 ML VIAL ONE (18:01)
[2024-06-19] MEDS: LIDOCAINE 1%-EPI 1:100,000 20 ML VIAL SQ ONE (18:24)
[2024-06-19] MEDS: metroNIDAZOLE-NS PMX 500 MG in SALINE 1 100ML.BAG IVPB STA (18:37)
--- NOTE | 2024-06-19 20:04 | P.GSHP ---
History of Present Illness H&P Date: 06/19/24 Patient is a 59 yo male presenting with 2-3 days of abdominal pain with associated nausea, no vomiting. Patient currently denies fevers, chills, shortness of breath or chest pain. Past Medical History Past Medical History: Hyperlipidemia, Hypertension History of Any Multi-Drug Resistant Organisms: None Reported Past Surgical History: Back Surgery Additional Past Surgical History / Comment(s): thumb Past Anesthesia/Blood Transfusion Reactions: No Reported Reaction Past Psychological History: No Psychological Hx Reported Smoking Status: Current every day smoker Past Alcohol Use History: None Reported Past Drug Use History: Marijuana - Past Family History Mother Family Medical History: Cancer, Hypertension Additional Family Medical History / Comment(s): at age 73. Father Family Medical History: Cancer Additional Family Medical History / Comment(s): passed at age 50 of Cancer Medications and Allergies Home Medications Medication Instructions Recorded Confirmed Type Atorvastatin [Lipitor] 40 mg PO DAILY 06/19/24 06/19/24 History Losartan [Cozaar] 50 mg PO DAILY 06/19/24 06/19/24 History Allergies Allergy/AdvReac Type Severity Reaction Status Date / Time No Known Allergies Allergy Verified 06/19/24 15:49 Surgical - Exam Osteopathic Statement: *. No significant issues noted on an osteopathic structural exam other than those noted in the History and Physical/Consult. Vital Signs Temp Pulse Resp BP Pulse Ox 99.8 F H 113 H 20 130/77 95 06/19/24 13:37 06/19/24 13:37 06/19/24 13:37 06/19/24 13:37 06/19/24 13:37 Limitations: no limitations General appearance: alert, in no apparent distress Head exam: Present: atraumatic, normocephalic, normal inspection Eye exam: Present: normal appearance, PERRL, EOMI. Absent: scleral icterus, conjunctival injection, periorbital swelling ENT exam: Present: normal exam, mucous membranes moist Neck exam: Present: normal inspection. Absent: tenderness, meningismus, lymphadenopathy Respiratory exam: Present: normal lung sounds bilaterally. Absent: respiratory distress, wheezes, rales, rhonchi, stridor Cardiovascular Exam: Present: regular rate, normal rhythm, normal heart sounds. Absent: systolic murmur, diastolic murmur, rubs, gallop, clicks GI/Abdominal exam: Present: soft, normal bowel sounds. Absent: distended, tenderness, guarding, rebound, rigid Extremities exam: Present: normal inspection, full ROM, normal capillary refill. Absent: tenderness, pedal edema, joint swelling, calf tenderness Back exam: Present: normal inspection Neurological exam: Present: alert, oriented X3, CN II-XII intact Psychiatric exam: Present: normal affect, normal mood Skin exam: Present: warm, dry, intact, normal color. Absent: rash Results - Labs 06/19/24 14:03 06/19/24 14:03 Abnormal Lab Results - Last 24 Hours (Table) 06/19/24 06/19/24 06/19/24 Range/Units 14:03 14:03 14:03 WBC 21.0 H (3.8-10.6) k/uL Neutrophils # 18.1 H (1.3-7.7) k/uL Monocytes # 1.2 H (0-1.0) k/uL Sodium 135 L (137-145) mmol/L Glucose 116 H (74-99) mg/dL Urine Blood Small H (Negative) Urine RBC 14 H (0-5) /hpf Diabetes panel 06/19/24 Range/Units 14:03 Sodium 135 L (137-145) mmol/L Potassium 4.5 (3.5-5.1) mmol/L Chloride 101 (98-107) mmol/L Carbon Dioxide 27 (22-30) mmol/L BUN 15 (9-20) mg/dL Creatinine 0.89 (0.66-1.25) mg/dL Glucose 116 H (74-99) mg/dL Calcium 9.4 (8.4-10.2) mg/dL AST 29 (17-59) U/L ALT 32 (4-49) U/L Alkaline Phosphatase 63 (38-126) U/L Total Protein 7.5 (6.3-8.2) g/dL Albumin 4.6 (3.5-5.0) g/dL Calcium panel 06/19/24 Range/Units 14:03 Calcium 9.4 (8.4-10.2) mg/dL Albumin 4.6 (3.5-5.0) g/dL Pituitary panel 06/19/24 Range/Units 14:03 Sodium 135 L (137-145) mmol/L Potassium 4.5 (3.5-5.1) mmol/L Chloride 101 (98-107) mmol/L Carbon Dioxide 27 (22-30) mmol/L BUN 15 (9-20) mg/dL Creatinine 0.89 (0.66-1.25) mg/dL Glucose 116 H (74-99) mg/dL Calcium 9.4 (8.4-10.2) mg/dL Adrenal panel 06/19/24 Range/Units 14:03 Sodium 135 L (137-145) mmol/L Potassium 4.5 (3.5-5.1) mmol/L Chloride 101 (98-107) mmol/L Carbon Dioxide 27 (22-30) mmol/L BUN 15 (9-20) mg/dL Creatinine 0.89 (0.66-1.25) mg/dL Glucose 116 H (74-99) mg/dL Calcium 9.4 (8.4-10.2) mg/dL Total Bilirubin 1.2 (0.2-1.3) mg/dL AST 29 (17-59) U/L ALT 32 (4-49) U/L Alkaline Phosphatase 63 (38-126) U/L Total Protein 7.5 (6.3-8.2) g/dL Albumin 4.6 (3.5-5.0) g/dL Assessment and Plan Assessment: 59 yo male w/ appendicitis -add rocephin/flagyl -OR stat -regular diet after surgery -anticipate discharge tomorrow afternoon after getting IV abx Time with Patient: Less than 30
[2024-06-19] MEDS: HYDROmorphone 1 MG/ML 1 ML SYRINGE IVP PRN (21:08)
[2024-06-19] MEDS: SODIUM CHLORIDE 0.9% 1,000 ML IV SCH (22:07)
[2024-06-20] MEDS: HYDROcodone/APAP 5-325MG 1 EACH TAB PO PRN (01:12)
[2024-06-20] MEDS: metroNIDAZOLE-NS PMX 500 MG in SALINE 1 100ML.BAG IVPB SCH (02:28)
[2024-06-20] MEDS: ACETAMINOPHEN TAB 325 MG TAB PO PRN (02:38)
--- NOTE | 2024-06-20 07:22 | P.OP ---
Date of Procedure: 06/19/24 Preoperative Diagnosis: appendicitis Postoperative Diagnosis: perforated appendicitis Procedure(s) Performed: laparoscopic appendectomy Anesthesia: RENNY Surgeon: Bro Krishnamurthy IV fluids (ml): 500 Urine output (ml): 150 Pathology: other (appendix) Condition: stable Disposition: PACU Indications for Procedure: appendicitis Operative Findings: perforated appendix with gross stool Description of Procedure: patient was brought to the operative suite where he was cleaned and draped in sterile fashion a timeout was performed and everyone agreed with the information resited. Next a #15 blade was then used to make an incision in the left upper quadrant and 2 more working ports were placed in the supraumbilical and supra pubic area. Once in the abdomen the patient was placed in Trendelenburg with right side up and the cecum was rotated anteriorly and the small bowel was moved cephalad.after doing this I discover that fat stranding of the appendiceal sail. I also discover the appendix burrowed in the peritoneal wall with active pus and what I assumed to be stool. The appendix was then grasped and dissected distal to proximal using a LigaSure device as I was doing this there were still active stool spilling from a perforation in the tip of the appendix. I dissected down to the base of the cecum using a LigaSure device. Once down to the base of the cecum I did use a 45 purple staple load to transect the appendix at the base. This was placed in an Endo Catch bag and removed from the umbilical port. The abdomen was irrigated and suctioned in the right lower quadrant. There was no purulent material in the pelvis. Once this was done a hemostatic, was performed in the base of the appendix were my staple line was observed. No bleeding and the staple line appeared to be satisfactory. I then used an 0 Vicryl stitch to close the fascia of the umbilicus. The rest of the remaining trochars were removed under direct visualization. In the surgical sites were closed using a combination of 3 and 4-0 Vicryl suture. The patient tolerated the procedure well and was then transported to PACU in stable condition.
[2024-06-20 09:38] LABS: Basophils % (A) 0 %; Eosinophils % (A) 0 %; HCT 42.5 % (39.0-53.0); HGB 14.1 gm/dL (13.0-17.5); Lymphocytes % (A) 7 %; MCHC 33.1 g/dL (31.0-37.0); MCV 93.7 fL (80.0-100.0); Monocytes # (A) 0.6 k/uL (0-1.0); Monocytes % (A) 4 %; Neutrophils # (A) 13.6 k/uL (1.3-7.7); Neutrophils % (A) 89 %; Platelet Count 220 k/uL (150-450); RBC 4.54 m/uL (4.30-5.90); RDW 12.7 % (11.5-15.5); WBC 15.4 k/uL (3.8-10.6)
--- NOTE | 2024-06-20 10:34 | P.PN ---
Subjective Progress Note Date: 06/20/24 SURGICAL PROGRESS NOTE CHIEF COMPLAINT: Perforated appendicitis HISTORY OF PRESENT ILLNESS: Patient is postop day #1 status post laparoscopic appendectomy. His pain is controlled. He is having flatus. Denies any nausea or vomiting. Patient had fever of 102 early this a.m. Tachycardia improved. WBC is down from 21-15 PHYSICAL EXAM: VITAL SIGNS: Reviewed. GENERAL: Well-developed in no acute distress. HEENT: No sclera icterus. Extraocular movements grossly intact. Moist buccal mucosa. Head is atraumatic, normocephalic. ABDOMEN: Soft. Nondistended. Incision sites are clean dry and intact with small amount of bruising. NEUROLOGIC: Alert and oriented. Cranial nerves II through XII grossly intact. ASSESSMENT: 1. Perforated appendicitis status post laparoscopic appendectomy PLAN: -Continue to monitor -Continue IV antibiotics -Continue regular diet -Encourage patient to use incentive spirometer -Encourage patient to ambulate -Continue Tylenol as needed for fevers -Possible discharge tomorrow -Medicine service consulted for medical management -GI prophylaxis Protonix and DVT prophylaxis subcu heparin Physician Hand Candy Cutter note has been reviewed by physician. Signing provider agrees with the documented findings, assessment, and plan of care. Objective - Vital Signs Vital signs: Vital Signs Temp 98.3 F 06/20/24 07:19 Pulse 95 06/20/24 07:19 Resp 16 06/20/24 07:19 BP 110/71 06/20/24 07:19 Pulse Ox 91 L 06/20/24 07:19 FiO2 Intake & Output 06/19/24 06/20/24 06/20/24 18:59 06:59 18:59 Intake Total 600 1320 Output Total 355 Balance 245 1320 Weight 79.832 kg 79.832 kg Intake: IV 600 Intake, IV Titration 1320 Amount Sodium Chloride 0.9% 1, 1170 000 ml @ 130 mls/hr IV . Q7H42M SUKUMAR Rx#:[id number] cefTRIAXone 1 gm In 50 Sodium Chloride 0.9% 50 ml @ 100 mls/hr IVPB Q24HR SUKUMAR Rx#:[id number] metroNIDAZOLE-NS PMX 500 100 mg In Saline 1 100ml.bag @ 100 mls/hr IVPB Q8H SUKUMAR Rx#:[id number] Output: Urine 340 Estimated Blood Loss 15 Other: Voiding Method Toilet Toilet # Voids 5 - Labs CBC & Chem 7: 06/20/24 09:23 06/19/24 14:03 Labs: Abnormal Lab Results - Last 24 Hours (Table) 06/19/24 06/19/24 06/19/24 Range/Units 14:03 14:03 14:03 WBC 21.0 H (3.8-10.6) k/uL Neutrophils # 18.1 H (1.3-7.7) k/uL Monocytes # 1.2 H (0-1.0) k/uL Sodium 135 L (137-145) mmol/L Glucose 116 H (74-99) mg/dL Urine Blood Small H (Negative) Urine RBC 14 H (0-5) /hpf 06/20/24 Range/Units 09:23 WBC 15.4 H (3.8-10.6) k/uL Neutrophils # 13.6 H (1.3-7.7) k/uL Monocytes # (0-1.0) k/uL Sodium (137-145) mmol/L Glucose (74-99) mg/dL Urine Blood (Negative) Urine RBC (0-5) /hpf Assessment and Plan Assessment: 59 yo male w/ perforated appendicitis -continue IV abx -pain control -regular diet -discussed w/ patient of perforation, also discussed expected course post operatively Time with Patient: Less than 30
[2024-06-20] MEDS: PANTOPRAZOLE 40 MG/10 ML VIAL IV SCH (10:44)
[2024-06-20] MEDS: ATORVASTATIN 40 MG TAB PO SCH (10:58)
[2024-06-20] MEDS: LOSARTAN 50 MG TAB PO SCH (10:58)
--- NOTE | 2024-06-20 15:42 | P.HPIM ---
History of Present Illness H&P Date: 06/20/24 Please consider this as medical consult note.... History of Presenting Illness: Patient is a pleasant 59-year-old male with a past medical history of hyperte nsion and hyperlipidemia. He presented to the emergency department on 06/19/2024 secondary to abdominal pain. CT revealed acute uncomplicated appendicitis. Patient concerns for sepsis with tachycardia, pyrexia, and elevated WBC of 21.0 upon arrival. Patient was admitted admitted under general surgery team and was taken for laparoscopic appendectomy. We were consulted for medical management. Patient seen and fully evaluated in room 457 status post completion of laparoscopic appendectomy. Patient reports tolerating clear liquid diet status post surgery and experiencing only mild postoperative abdominal distention with reports of tightness and mild to moderate pain. Denies having any other complaints at this time including dizziness, lightheadedness, chest pain, palpitations, shortness of breath, nausea, vomiting, or experiencing any difficulties with urinary function. Review of systems: Pertinent positives and negatives as discussed in HPI, a complete review of systems was performed and all other systems are negative. Physical exam: Vital signs reviewed and stable. General: Nontoxic, no distress and appears stated age. Derm: Skin warm and dry, normal coloration for ethnicity. Head: Atraumatic, normocephalic and symmetric. Eyes: EOM's intact, no lid lag, and anicteric sclera Mouth: no lip lesions, mucus membranes moist Cardiovascular: regular rate and rhythm with normal S1S2, no murmur, positive posterior tibial pulses bilaterally, and cap refill < 2 seconds. Lungs: Respirations even, regular, and unlabored on room air. Lungs CTA bilaterally, no rhonchi, no rales, no wheezing, and no accessory muscle usage. Abdominal: soft distended with diffuse tenderness upon palpation, no guarding, no appreciable organomegaly. Laparoscopic incisions intact. Ext: ROM intact. No gross muscle atrophy, no edema, no contractures Neuro: Speech clear, face symmetrical and CN II-XII grossly intact with no noted focal neuro deficits Psych: Alert and oriented to person, place, time, and situation. Appropriate and pleasant affect. Assessment and Plan of Care: Acute Appendicitis Sepsis upon arrival, secondary to above Status post laparoscopic appendectomy -Management per primary admitting general surgery team including DVT prophylaxis, pain management, wound/dressing management, and advancement of diet. -DVT prophylaxis currently with heparin 5000 units subcu every 12 hours. -Continue IV antibiotics with Flagyl 500 mg every 8 hours Rocephin 1 g every 24 hours. -Continue symptomatic care and pain management. -GI Prophylaxis with Protonix 40 mg daily. Hypertension -Monitor vital signs and continue daily medication regimen with losartan 50 mg daily. Hyperlipidemia -Continue daily medication regimen with atorvastatin 40 mg nightly. Data and imaging reviewed: -Reviewed postoperative labs. CBC showing improvement of leukocytosis from 21.0 down to 15.4. BMP unremarkable. Blood glucose 116. Urinalysis negative for infection. -Vital signs reviewed. Blood pressure 110/71, heart rate 95, respiratory rate 16, temp 98.3 F, and SpO2 of 91% on room air. Thank you for allowing us to participate in the care of this pleasant patient. Do not hesitate to contact us with questions. Someone can be reached from the [facility] hospitalist group all hours of the day at [phone] or via [employer]. Patient was seen independently by Nurse Practitioner. This document was prepared using [employer] dictation software. Please allow for errors in audiology director while rare they do occur. Franco Prajapati NP rendered care for this patient independently, reviewed the findings and plan as documented in the note above and agree with plan. I did not physically speak with or examine the patient on this date. Past Medical History Past Medical History: Hyperlipidemia, Hypertension History of Any Multi-Drug Resistant Organisms: None Reported Past Surgical History: Appendectomy, Back Surgery Additional Past Surgical History / Comment(s): thumb Past Anesthesia/Blood Transfusion Reactions: No Reported Reaction Past Psychological History: No Psychological Hx Reported Smoking Status: Current every day smoker Past Alcohol Use History: None Reported Past Drug Use History: Marijuana Additional Drug Use History / Comment(s): smokes 1.5 packs per day. occasional marijuana use. - Past Family History Mother Family Medical History: Cancer, Hypertension Additional Family Medical History / Comment(s): at age 73. Father Family Medical History: Cancer Additional Family Medical History / Comment(s): passed at age 50 of Cancer Medications and Allergies Home Medications Medication Instructions Recorded Confirmed Type Atorvastatin [Lipitor] 40 mg PO DAILY 06/19/24 06/19/24 History Losartan [Cozaar] 50 mg PO DAILY 06/19/24 06/19/24 History Allergies Allergy/AdvReac Type Severity Reaction Status Date / Time No Known Allergies Allergy Verified 06/19/24 15:49 Physical Exam Vitals: Vital Signs Temp Pulse Pulse Resp BP BP Pulse Ox 06/20/24 07:19 98.3 F 95 16 110/71 91 L 06/20/24 03:33 99.7 F H 110 H 96 06/20/24 02:21 102.9 F H 120 H 17 111/69 91 L 06/19/24 22:31 110 H 152/91 92 L 06/19/24 22:17 113 H 142/78 91 L 06/19/24 22:01 102 H 128/81 90 L 06/19/24 21:46 102 H 129/78 93 L 06/19/24 21:31 103 H 120/79 91 L 06/19/24 20:46 92 132/79 95 06/19/24 20:31 90 153/88 93 L 06/19/24 20:16 99.2 F 92 161/61 96 06/19/24 20:00 99.2 F 86 17 119/82 95 06/19/24 19:17 76 16 1337/71 94 L 06/19/24 19:02 98.6 F 89 16 164/81 96 06/19/24 17:15 99.9 F H 86 16 128/69 95 06/19/24 17:00 99.7 F H 97 18 132/79 97 06/19/24 15:48 99.8 F H 93 18 137/80 94 L 06/19/24 13:37 99.8 F H 113 H 20 130/77 95 Intake and Output 06/19/24 06/20/24 06/20/24 22:59 06:59 14:59 Intake Total 600 1320 Output Total 355 Balance 245 1320 Intake: IV 600 Intake, IV Titration 1320 Amount Sodium Chloride 0.9% 1, 1170 000 ml @ 130 mls/hr IV . Q7H42M [facility] Rx#:[id number] cefTRIAXone 1 gm In 50 Sodium Chloride 0.9% 50 ml @ 100 mls/hr IVPB Q24HR [facility] Rx#:[id number] metroNIDAZOLE-NS PMX 500 100 mg In Saline 1 100ml.bag @ 100 mls/hr IVPB Q8H [facility] Rx#:[id number] Output: Urine 340 Estimated Blood Loss 15 Other: Voiding Method Toilet Toilet # Voids 5 Weight 79.832 kg Results CBC & Chem 7: 06/20/24 09:23 06/19/24 14:03 Labs: Abnormal Lab Results - Last 24 Hours (Table) 06/19/24 06/19/24 06/19/24 Range/Units 14:03 14:03 14:03 WBC 21.0 H (3.8-10.6) k/uL Neutrophils # 18.1 H (1.3-7.7) k/uL Monocytes # 1.2 H (0-1.0) k/uL Sodium 135 L (137-145) mmol/L Glucose 116 H (74-99) mg/dL Urine Blood Small H (Negative) Urine RBC 14 H (0-5) /hpf Thrombosis Risk Factor Assmnt - Choose All That Apply Any of the Below Risk Factors Present?: Yes Each Factor Represents 1 point: Age 41-60 years Thrombosis Risk Factor Assessment Total Risk Factor Score: 1 Thrombosis Risk Factor Assessment Level: Low Risk
[2024-06-20] MEDS: HEPARIN SODIUM,PORCINE 5,000 UNIT/ML 1 ML VIAL SQ SCH (22:24)
[2024-06-21 08:27] LABS: Basophils # (A) 0.03 X 10*3/uL (0.00-0.10); Basophils % (A) 0.2 %; Eosinophils # (A) 0.01 X 10*3/uL (0.04-0.35); Eosinophils % (A) 0.1 %; HCT 38.9 % (39.6-50.0); Lymphocytes # (A) 1.39 X 10*3/uL (0.90-5.00); Lymphocytes % (A) 8.9 %; MCH 30.4 pg (27.0-32.0); MCHC 33.4 g/dL (32.0-37.0); MCV 90.9 FL (80.0-97.0); Mean Platelet Volume 9.4 FL (9.5-12.2); Monocytes # (A) 0.96 X 10*3/uL (0.20-1.00); Monocytes % (A) 6.1 %; NRBC Per 100 WBC 0 X 10*3/uL (0.00-0.01); Neutrophils # (A) 13.17 X 10*3/uL (1.80-7.70); Platelet Count 201 X 10*3/uL (140-440); RBC 4.28 X 10*6/uL (4.40-5.60); RDW 13.3 % (11.5-14.5); WBC 15.67 X 10*3/uL (4.50-10.00)
[2024-06-21 09:20] LABS: ALT 20 U/L (4-49); AST 22 U/L (17-59); African American GFR (CKD) >90 (>60 ml/min/1.73 sqM); Albumin 2.9 g/dL (3.5-5.0); Albumin/Globulin Ratio 1.3; Alkaline Phosphatase 58 U/L (38-126); Anion Gap 5 mmol/L; Blood Urea Nitrogen 16 mg/dL (9-20); Carbon Dioxide 24 mmol/L (22-30); Chloride 105 mmol/L (98-107); Globulin 2.2 g/dL; Glucose 99 mg/dL (74-99); Non-African American GFR(CKD) 78 (>60 ml/min/1.73 sqM); Potassium 3.8 mmol/L (3.5-5.1); Sodium 134 mmol/L (137-145); Total Bilirubin 0.8 mg/dL (0.2-1.3); Total Protein 5.1 g/dL (6.3-8.2)
[2024-06-21] MEDS: PIPERACILLIN-TAZOBACTAM 3.375 GM in SODIUM CHLORIDE 0.9% 100 ML IVPB SCH (10:19)
--- NOTE | 2024-06-21 12:59 | P.PN ---
Subjective Progress Note Date: 06/21/24 SURGICAL PROGRESS NOTE CHIEF COMPLAINT: Perforated appendicitis HISTORY OF PRESENT ILLNESS: Patient is postop day #2 status post laparoscopic appendectomy. Patient does complain of abdominal pain mostly incisional. He is having flatus. He does report pain with coughing. He did have a fever of 102.4 last night. He has been mildly tachycardic. WBC staying about the same at 15.6 PHYSICAL EXAM: VITAL SIGNS: Reviewed. GENERAL: Well-developed in no acute distress. HEENT: No sclera icterus. Extraocular movements grossly intact. Moist buccal mucosa. Head is atraumatic, normocephalic. ABDOMEN: Soft. Nondistended. Incision sites are clean dry and intact with small amount of bruising. Mild tenderness at incision sites and in the right lower quadrant NEUROLOGIC: Alert and oriented. Cranial nerves II through XII grossly intact. ASSESSMENT: 1. Perforated appendicitis status post laparoscopic appendectomy PLAN: -Due to fevers and leukocytosis will change antibiotics to IV Zosyn -Repeat CBC in a.m. -Continue to monitor for fevers -Encourage patient to use incentive spirometer -Continue regular diet -GI prophylaxis Protonix and DVT prophylaxis subcu heparin Physician Seafood Fisherman note has been reviewed by physician. Signing provider agrees with the documented findings, assessment, and plan of care. Attestation Patient seen and examined at bedside. Status post laparoscopic appendectomy for perforated appendicitis. He did have multiple febrile episodes overnight and continues to have leukocytosis. We will change antibiotics to Zosyn today. Continue to increase activity. Recommended incentive spirometry. Patient does state pain is improving. He is having bowel function. Continue diet. Bethany Sierra, DO Objective - Vital Signs Vital signs: Vital Signs Temp 99.0 F 06/21/24 07:36 Pulse 108 H 06/21/24 07:36 Resp 17 06/21/24 07:36 BP 112/67 06/21/24 07:36 Pulse Ox 93 L 06/21/24 07:36 FiO2 Intake & Output 06/20/24 06/21/24 06/21/24 18:59 06:59 18:59 Intake Total 240 Balance 240 Intake: Oral 240 Other: Voiding Method Toilet # Voids 3 2 - Labs CBC & Chem 7: 06/21/24 05:37 06/21/24 05:37 Labs: Abnormal Lab Results - Last 24 Hours (Table) 06/21/24 06/21/24 Range/Units 05:37 05:37 WBC 15.67 H (4.50-10.00) X 10*3/uL RBC 4.28 L (4.40-5.60) X 10*6/uL Hct 38.9 L (39.6-50.0) % MPV 9.4 L (9.5-12.2) FL Immature Gran # 0.11 H (0.00-0.04) X 10*3/uL Neutrophils # 13.17 H (1.80-7.70) X 10*3/uL Eosinophils # 0.01 L (0.04-0.35) X 10*3/uL Sodium 134 L (137-145) mmol/L Calcium 8.0 L (8.4-10.2) mg/dL Total Protein 5.1 L (6.3-8.2) g/dL Albumin 2.9 L (3.5-5.0) g/dL
--- NOTE | 2024-06-21 14:07 | P.PN ---
Subjective Progress Note Date: 06/21/24 Hospital course: Patient is a pleasant 59-year-old male with a past medical history of hypertension and hyperlipidemia. He presented to the emergency department on 06/19/2024 secondary to abdominal pain. CT revealed acute uncomplicated appendicitis. Patient concerns for sepsis with tachycardia, pyrexia, and elevated WBC of 21.0 upon arrival. Patient was admitted admitted under general surgery team and was taken for laparoscopic appendectomy. We were consulted for medical management. Physical exam: Patient seen and fully evaluated at bedside this morning. He is currently s itting up in chair at bedside and reports continued mild postoperative pain but states slight improvement from yesterday. Patient again febrile overnight with a temp elevated as high as 102.4 F. He is tolerating oral intake and denies having any nausea or vomiting. Vital signs reviewed and stable. General: Nontoxic, no distress and appears stated age. Derm: Skin warm and dry, normal coloration for ethnicity. Head: Atraumatic, normocephalic and symmetric. Eyes: EOM's intact, no lid lag, and anicteric sclera Mouth: no lip lesions, mucus membranes moist Cardiovascular: regular rate and rhythm with normal S1S2, no murmur, positive posterior tibial pulses bilaterally, and cap refill < 2 seconds. Lungs: Respirations even, regular, and unlabored on room air. Lungs CTA bilaterally, no rhonchi, no rales, no wheezing, and no accessory muscle usage. Abdominal: soft distended with diffuse tenderness upon palpation, no guarding, no appreciable organomegaly. Laparoscopic incisions intact. Ext: ROM intact. No gross muscle atrophy, no edema, no contractures Neuro: Speech clear, face symmetrical and CN II-XII grossly intact with no noted focal neuro deficits Psych: Alert and oriented to person, place, time, and situation. Appropriate and pleasant affect. Assessment and Plan of Care: Sepsis on admission, secondary to acute appendicitis Acute Appendicitis Status post laparoscopic appendectomy -Management per primary admitting general surgery team including DVT prophylaxis, pain management, wound/dressing management, and advancement of diet. -DVT prophylaxis currently with heparin 5000 units subcu every 12 hours. -Rocephin and Flagyl discontinued secondary to persistent pyrexia and leukocytosis. Patient started on IV antibiotics with Zosyn 3.375 g every 8 hours. -Continue symptomatic care and pain management. -GI Prophylaxis with Protonix 40 mg daily. Hypertension -Monitor vital signs and continue daily medication regimen with losartan 50 mg daily. Hyperlipidemia -Continue daily medication regimen with atorvastatin 40 mg nightly. Data and imaging reviewed: -Morning labs reviewed. CBC showing persistent leukocytosis with WBC count of 15.67. BMP showing mild hyponatremia with sodium of 134 otherwise normal findings. Blood glucose 99. Magnesium 2.0. Liver profile unremarkable. Albumin low at 2.9. -Vital signs reviewed. Blood pressure 112/67, heart rate 108, respiratory rate 17, temp 99.0 F, and SpO2 of 93% on 2 L. Temperature high over the past 24 hours is 102.4 F.. Thank you for allowing us to participate in the care of this pleasant patient. Do not hesitate to contact us with questions. Someone can be reached from the [facility] hospitalist group all hours of the day at [phone] or via [employer]. Patient was seen independently by Nurse Practitioner. This document was prepared using Meet[employer] dictation software. Please allow for errors in pulmonary fellow while rare they do occur. Franco Prajapati NP rendered care for this patient independently, reviewed the findings and plan as documented in the note above and agree with plan. I did not physically speak with or examine the patient on this date. Objective - Vital Signs Vital signs: Vital Signs Temp 101.9 F H 06/21/24 02:00 Pulse 98 06/21/24 02:00 Resp 20 06/21/24 02:00 BP 124/76 06/21/24 02:00 Pulse Ox 91 L 06/21/24 02:00 FiO2 Intake & Output 06/20/24 06/21/24 06/21/24 18:59 06:59 18:59 Intake Total 240 Balance 240 Intake: Oral 240 Other: Voiding Method Toilet # Voids 3 2 - Labs CBC & Chem 7: 06/21/24 05:37 06/21/24 05:37 Labs: Abnormal Lab Results - Last 24 Hours (Table) 06/20/24 Range/Units 09:23 WBC 15.4 H (3.8-10.6) k/uL Neutrophils # 13.6 H (1.3-7.7) k/uL
[2024-06-22] MEDS: IBUPROFEN 400 MG TAB PO PRN (02:38)
[2024-06-22 08:39] LABS: Basophils # (A) 0.02 X 10*3/uL (0.00-0.10); Basophils % (A) 0.2 %; Eosinophils % (A) 0.8 %; HCT 34.2 % (39.6-50.0); HGB 11.6 g/dL (13.0-17.0); Lymphocytes # (A) 1.21 X 10*3/uL (0.90-5.00); Lymphocytes % (A) 9.8 %; MCH 31.4 pg (27.0-32.0); MCHC 33.9 g/dL (32.0-37.0); MCV 92.4 FL (80.0-97.0); Mean Platelet Volume 9.5 FL (9.5-12.2); Monocytes # (A) 0.86 X 10*3/uL (0.20-1.00); NRBC Per 100 WBC 0 X 10*3/uL (0.00-0.01); Neutrophils % (A) 81.6 %; Platelet Count 207 X 10*3/uL (140-440); RDW 13.5 % (11.5-14.5); WBC 12.36 X 10*3/uL (4.50-10.00)
[2024-06-22 09:04] LABS: ALT 28 U/L (4-49); AST 33 U/L (17-59); African American GFR (CKD) >90 (>60 ml/min/1.73 sqM); Albumin 2.7 g/dL (3.5-5.0); Albumin/Globulin Ratio 1.2; Alkaline Phosphatase 62 U/L (38-126); Anion Gap 5 mmol/L; Blood Urea Nitrogen 15 mg/dL (9-20); Calcium 7.7 mg/dL (8.4-10.2); Carbon Dioxide 24 mmol/L (22-30); Chloride 108 mmol/L (98-107); Globulin 2.3 g/dL; Glucose 100 mg/dL (74-99); Non-African American GFR(CKD) 83 (>60 ml/min/1.73 sqM); Potassium 3.7 mmol/L (3.5-5.1); Sodium 137 mmol/L (137-145); Total Bilirubin 0.7 mg/dL (0.2-1.3)
--- NOTE | 2024-06-22 13:31 | P.PN ---
Subjective Progress Note Date: 06/22/24 SURGICAL PROGRESS NOTE CHIEF COMPLAINT: Perforated appendicitis HISTORY OF PRESENT ILLNESS: Patient is postop day #3 status post laparoscopic appendectomy. Patient reports no increase in pain. He reports his pain is tolerable. Denies any nausea or vomiting. He has had a bowel movement. Patient continues to have fevers. Tmax of 101.4. He was mildly tachycardic. White count did decrease from 15-12. Hemoglobin has dropped from 13-11. Patient has been receiving IV fluids at 130 mL/h. Repeat vitals patient has had no further fever. And heart rate has improved. Antibiotics changed yesterday from Rocephin and Flagyl to Zosyn. PHYSICAL EXAM: VITAL SIGNS: Reviewed. GENERAL: Well-developed in no acute distress. HEENT: No sclera icterus. Extraocular movements grossly intact. Moist buccal mucosa. Head is atraumatic, normocephalic. ABDOMEN: Soft. Nondistended. Incision sites are clean dry and intact with small amount of bruising. Mild tenderness at incision sites NEUROLOGIC: Alert and oriented. Cranial nerves II through XII grossly intact. ASSESSMENT: 1. Perforated appendicitis status post laparoscopic appendectomy PLAN: -Consult infectious disease due to recurrent fevers -Encourage patient to ambulate in hallway -Encourage patient to use incentive spirometer -Continue IV Zosyn -Continue regular diet -Repeat CBC in a.m. -GI prophylaxis Protonix and DVT prophylaxis subcu heparin Physician Operations Intelligence Superintendent note has been reviewed by physician. Signing provider agrees with the documented findings, assessment, and plan of care. Objective - Vital Signs Vital signs: Vital Signs Temp 98.1 F 06/22/24 11:00 Pulse 72 06/22/24 11:00 Resp 18 06/22/24 11:00 BP 108/68 06/22/24 11:00 Pulse Ox 97 06/22/24 11:00 FiO2 Intake & Output 06/21/24 06/22/24 06/22/24 18:59 06:59 18:59 Intake Total 2490 Balance 2490 Intake: Intake, IV Titration 1530 Amount Piperacillin-Tazobactam 3 100 .375 gm In Sodium Chloride 0.9% 100 ml @ 25 mls/hr IVPB Q8H [facility] Rx#: [id number] Sodium Chloride 0.9% 1, 1430 000 ml @ 130 mls/hr IV . Q7H42M [facility] Rx#:[id number] Oral 960 Other: Voiding Method Toilet Toilet # Voids 3 4 - Labs CBC & Chem 7: 06/22/24 05:54 06/22/24 08:35 Labs: Abnormal Lab Results - Last 24 Hours (Table) 06/22/24 06/22/24 Range/Units 05:54 08:35 WBC 12.36 H (4.50-10.00) X 10*3/uL RBC 3.70 L (4.40-5.60) X 10*6/uL Hgb 11.6 L (13.0-17.0) g/dL Hct 34.2 L (39.6-50.0) % Immature Gran # 0.07 H (0.00-0.04) X 10*3/uL Neutrophils # 10.10 H (1.80-7.70) X 10*3/uL Chloride 108 H (98-107) mmol/L Glucose 100 H (74-99) mg/dL Calcium 7.7 L (8.4-10.2) mg/dL Total Protein 5.0 L (6.3-8.2) g/dL Albumin 2.7 L (3.5-5.0) g/dL
--- NOTE | 2024-06-22 18:10 | P.PN ---
Subjective Progress Note Date: 06/22/24 Hospital course: Patient is a pleasant 59-year-old male with a past medical history of hypertension and hyperlipidemia. He presented to the emergency department on 06/19/2024 secondary to abdominal pain. CT revealed acute uncomplicated appendicitis. Patient concerns for sepsis with tachycardia, pyrexia, and elevated WBC of 21.0 upon arrival. Patient was admitted admitted under general surgery team and was taken for laparoscopic appendectomy. We were consulted for medical management. Physical exam: Patient seen and fully evaluated at bedside this morning. He is currently s itting up in chair at bedside and continues to report improvement of postoperative pain. Patient continues to run elevated temps as high as 101.4 F this morning. Discussed further with patient he does report an occasional cough otherwise states no complaints and again states abdominal pain is improving. Patient encouraged to ambulate and use incentive spirometer 10-15 times hourly while awake. Vital signs reviewed and stable. General: Nontoxic, no distress and appears stated age. Derm: Skin warm and dry, normal coloration for ethnicity. Head: Atraumatic, normocephalic and symmetric. Eyes: EOM's intact, no lid lag, and anicteric sclera Mouth: no lip lesions, mucus membranes moist Cardiovascular: regular rate and rhythm with normal S1S2, no murmur, positive posterior tibial pulses bilaterally, and cap refill < 2 seconds. Lungs: Respirations even, regular, and unlabored on room air. Lungs CTA bilaterally, no rhonchi, no rales, no wheezing, and no accessory muscle usage. Abdominal: soft distended with diffuse tenderness upon palpation, no guarding, no appreciable organomegaly. Laparoscopic incisions intact. Ext: ROM intact. No gross muscle atrophy, no edema, no contractures Neuro: Speech clear, face symmetrical and CN II-XII grossly intact with no noted focal neuro deficits Psych: Alert and oriented to person, place, time, and situation. Appropriate and pleasant affect. Assessment and Plan of Care: Sepsis on admission, secondary to acute appendicitis Acute Appendicitis Status post laparoscopic appendectomy -Management of DVT prophylaxis, pain management, wound/dressing management, and per primary admitting general surgery team. -DVT prophylaxis currently with heparin 5000 units subcu every 12 hours. -Continue IV antibiotics with Zosyn 3.375 g every 8 hours. -Order placed for blood culture along with Cepheid 4 Plex viral panel secondary to persistent fevers. -Continue symptomatic care and pain management. -GI Prophylaxis with Protonix 40 mg daily. Hypertension -Monitor vital signs and continue daily medication regimen with losartan 50 mg daily. Hyperlipidemia -Continue daily medication regimen with atorvastatin 40 mg nightly. Data and imaging reviewed: -Morning labs reviewed. CBC showing movement of leukocytosis with WBC count decreasing to 12.36 and stable normocytic anemia with hemoglobin of 11.6. BMP showing mild hypercarbia with bicarb of 108 otherwise normal findings. Blood glucose 100. Liver profile unremarkable with the exception of hypoalbuminemia with albumin of 2.7. -Vital signs reviewed. Blood pressure 100/67, heart rate 66, respiratory rate 18, temp 98.0 F, and SpO2 of 95% on room air.. Temperature high over the past 24 hours is 101.4 F.. Thank you for allowing us to participate in the care of this pleasant patient. Do not hesitate to contact us with questions. [facility] all hours of the day at [phone] or via [employer]. Patient was seen independently by Nurse Practitioner. This document was prepared using [employer] dictation software. Please allow for errors in lead sustainability specialist while rare they do occur. Franco Prajapati NP rendered care for this patient independently, reviewed the findings and plan as documented in the note above and agree with plan. I did not physically speak with or examine the patient on this date. Objective - Vital Signs Vital signs: Vital Signs Temp 98 F 06/22/24 07:16 Pulse 66 06/22/24 07:16 Resp 18 06/22/24 07:16 BP 100/67 06/22/24 07:16 Pulse Ox 95 06/22/24 07:16 FiO2 Intake & Output 06/21/24 06/22/24 06/22/24 18:59 06:59 18:59 Intake Total 2490 Balance 2490 Intake: Intake, IV Titration 1530 Amount Piperacillin-Tazobactam 3 100 .375 gm In Sodium Chloride 0.9% 100 ml @ 25 mls/hr IVPB Q8H SU[facility]AR Rx#: [id number] Sodium Chloride 0.9% 1, 1430 000 ml @ 130 mls/hr IV . Q7H42M [facility] Rx#:[id number] Oral 960 Other: Voiding Method Toilet # Voids 3 4 - Labs CBC & Chem 7: 06/22/24 05:54 06/22/24 08:35 Labs: Abnormal Lab Results - Last 24 Hours (Table) 06/21/24 06/21/24 Range/Units 05:37 05:37 WBC 15.67 H (4.50-10.00) X 10*3/uL RBC 4.28 L (4.40-5.60) X 10*6/uL Hct 38.9 L (39.6-50.0) % MPV 9.4 L (9.5-12.2) FL Immature Gran # 0.11 H (0.00-0.04) X 10*3/uL Neutrophils # 13.17 H (1.80-7.70) X 10*3/uL Eosinophils # 0.01 L (0.04-0.35) X 10*3/uL Sodium 134 L (137-145) mmol/L Calcium 8.0 L (8.4-10.2) mg/dL Total Protein 5.1 L (6.3-8.2) g/dL Albumin 2.9 L (3.5-5.0) g/dL
--- NOTE | 2024-06-22 22:29 | P.CONS ---
History of Present Illness - Reason for Consult Consult date: 06/22/24 Fever, perforated appendicitis Requesting physician: Ryann Lema - Chief Complaint Abdominal pain x few days - History of Present Illness Patient is a 59-year-old male with a past medical history significant for hypertension hyperlipidemia presenting to the hospital 3 days ago for evaluation of abdominal pain patient has been diagnosed with perforated append icitis in this patient who is status post laparoscopic appendectomy completed on 06/19/2024 patient has been in the hospital recovering from his surgery patient apparently did have low-grade fever of 99.8 on admission however the patient has been spiking daily fever of 102 F over the last 2 days and did have a low-grade fever 100.7 last night infectious disease was consulted today for persistent fever patient however mention overall abdominal pain seem to have slowly decreased in size patient denies having any nausea no vomiting he did have a loose bowel movement with no blood or mucus in the stool denies any headache or URI symptoms no chest pain shortness of breath or cough and no urinary symptoms patient on admission to the hospital her white count of 15.4 which is currently down to 12.36 his creatinine 1.0 electrolyte liver enzymes normal influenza RSV COVID testing has been negative Review of Systems Positive point and negatives has been mentioned in the HPI, complete review of systems was performed and all other systems are negative Past Medical History Past Medical History: Hyperlipidemia, Hypertension History of Any Multi-Drug Resistant Organisms: None Reported Past Surgical History: Appendectomy, Back Surgery Additional Past Surgical History / Comment(s): thumb Past Anesthesia/Blood Transfusion Reactions: No Reported Reaction Past Psychological History: No Psychological Hx Reported Smoking Status: Current every day smoker Past Alcohol Use History: None Reported Past Drug Use History: Marijuana Additional Drug Use History / Comment(s): smokes 1.5 packs per day. occasional marijuana use. - Past Family History Mother Family Medical History: Cancer, Hypertension Additional Family Medical History / Comment(s): at age 73. Father Family Medical History: Cancer Additional Family Medical History / Comment(s): passed at age 50 of Cancer Medications and Allergies Home Medications Medication Instructions Recorded Confirmed Type Atorvastatin [Lipitor] 40 mg PO DAILY 06/19/24 06/19/24 History Losartan [Cozaar] 50 mg PO DAILY 06/19/24 06/19/24 History Allergies Allergy/AdvReac Type Severity Reaction Status Date / Time No Known Allergies Allergy Verified 06/19/24 15:49 Physical Exam Vitals: Vital Signs Temp Pulse Pulse Pulse Resp BP Pulse Ox 06/22/24 11:00 98.1 F 72 18 108/68 97 06/22/24 07:16 98 F 66 18 100/67 95 06/22/24 02:37 100.7 F H 06/22/24 01:59 101.4 F H 97 22 131/75 95 06/21/24 19:41 115 H 104 H 22 06/21/24 19:16 101.2 F H 115 H 22 126/72 06/21/24 19:11 114 H 22 06/21/24 13:25 99.6 F 104 H 17 131/75 93 L Intake and Output 06/21/24 06/22/24 06/22/24 22:59 06:59 14:59 Intake Total 2490 Balance 2490 Intake: Intake, IV Titration 1530 Amount Piperacillin-Tazobactam 3 100 .375 gm In Sodium Chloride 0.9% 100 ml @ 25 mls/hr IVPB Q8H SUKUMAR Rx#: [id number] Sodium Chloride 0.9% 1, 1430 000 ml @ 130 mls/hr IV . Q7H42M SUKUMAR Rx#:[id number] Oral 960 Other: Voiding Method Toilet Toilet # Voids 3 4 GENERAL DESCRIPTION: Middle-aged male up in bed, no distress. No tachypnea or accessory muscle of respiration use. HEENT: Shows Pallor , no scleral icterus. Oral mucous membrane is dry. No pharyngeal erythema or thrush NECK: Trachea central, no thyromegaly. LUNGS: Unlabored breathing. Clear to auscultation anteriorly. No wheeze or crackle. HEART: S1, S2, regular rate and rhythm. No loud murmur ABDOMEN: Soft, did have some distention but no significant tenderness EXTREMITIES: No edema of feet. SKIN: No rash, no masses palpable. NEUROLOGICAL: The patient is awake, alert, oriented x3, mood and affect normal. Results CBC & Chem 7: 06/22/24 05:54 06/22/24 08:35 Labs: Abnormal Lab Results - Last 24 Hours (Table) 06/22/24 06/22/24 Range/Units 05:54 08:35 WBC 12.36 H (4.50-10.00) X 10*3/uL RBC 3.70 L (4.40-5.60) X 10*6/uL Hgb 11.6 L (13.0-17.0) g/dL Hct 34.2 L (39.6-50.0) % Immature Gran # 0.07 H (0.00-0.04) X 10*3/uL Neutrophils # 10.10 H (1.80-7.70) X 10*3/uL Chloride 108 H (98-107) mmol/L Glucose 100 H (74-99) mg/dL Calcium 7.7 L (8.4-10.2) mg/dL Total Protein 5.0 L (6.3-8.2) g/dL Albumin 2.7 L (3.5-5.0) g/dL Assessment and Plan (1) Sepsis Current Visit: Yes Status: Acute Code(s): A41.9 - SEPSIS, UNSPECIFIED ORGANISM SNOMED Code(s): 61663384 (2) Peritonitis Current Visit: Yes Status: Acute Code(s): K65.9 - PERITONITIS, UNSPECIFIED SNOMED Code(s): 91531615 (3) Perforated appendix Current Visit: Yes Status: Acute Code(s): K35.32 - AC APPENDICITIS W PERF, LOC PERITONITIS, & GANGR, W/O ABSCS SNOMED Code(s): 99783042 Plan: 1patient with the persistent fever in this patient presented to hospital with abdominal pain and has been diagnosed with perforated appendicitis status post laparoscopic appendectomy and likely on recent negative COVID with enteric gram- negative both aerobes and anaerobes patient has been on Zosyn still running a fever which is slightly concerning unfortunately no OR culture were done that would have guide further antibiotic therapy 2-keeping in mind the patient fever pattern is improving white count is trending down the patient is feeling better I will keep the patient on Zosyn at this point however if any further fever worsening abdominal pain or worsening of the white count patient benefit from a CT abdominal pelvis to rule out any develo ping abscess 3-for now we will continue patient on Zosyn and will repeat a CBC and a CRP with a.m. lab We will follow on clinical condition and cultures to further adjust medication if needed Thank you for this consultation we will follow the patient along with you Dictation was produced using [employer] software. please excuse any grammatical, word or spelling errors. Time with Patient: Greater than 30
--- NOTE | 2024-06-23 08:21 | P.PN ---
Progress Note - Text Progress Note Date: 06/23/24 CHIEF COMPLAINT: Perforated appendicitis HISTORY OF PRESENT ILLNESS: Patient is POD #4 status post laparoscopic appendectomy. Patient reports no increase in pain. He reports his pain is tolerable. Denies any nausea or vomiting. He has had a bowel movements. Patient continues to have fevers. PHYSICAL EXAM: VITAL SIGNS: Reviewed. GENERAL: Well-developed in no acute distress. HEENT: No sclera icterus. Extraocular movements grossly intact. Moist buccal mucosa. Head is atraumatic, normocephalic. ABDOMEN: Soft. Nondistended. Incision sites are clean dry and intact with small amount of bruising. Mild tenderness at incision sites NEUROLOGIC: Alert and oriented. Cranial nerves II through XII grossly intact. ASSESSMENT: 1. Perforated appendicitis status post laparoscopic appendectomy PLAN: -Infectious Disease Consult pending due to recurrent fevers -Encourage patient to ambulate in hallway -Encourage patient to use incentive spirometer -Continue IV Zosyn -Continue Regular Diet -AM labs pending. Will continue to monitor WBC and Hgb -If patient continues to have fevers or WBC increases, will consider CT-AP tomorrow -GI prophylaxis and DVT prophylaxis Mane Arevalo DO [facility] [phone]
[2024-06-23 10:45] LABS: HCT 38.6 % (39.6-50.0); HGB 12.7 g/dL (13.0-17.0); MCH 30.7 pg (27.0-32.0); MCHC 32.9 g/dL (32.0-37.0); MCV 93.2 FL (80.0-97.0); Mean Platelet Volume 9.7 FL (9.5-12.2); NRBC Per 100 WBC 0 X 10*3/uL (0.00-0.01); Platelet Count 259 X 10*3/uL (140-440); RBC 4.14 X 10*6/uL (4.40-5.60); RDW 13.8 % (11.5-14.5); WBC 10.69 X 10*3/uL (4.50-10.00)
[2024-06-23 10:52] LABS: ALT 55 U/L (10-49); AST 63 U/L (14-35); Albumin 3.2 g/dL (3.8-4.9); Albumin/Globulin Ratio 1.68 Ratio (1.60-3.17); Alkaline Phosphatase 84 U/L (41-126); BUN/Creat Ratio 13.11 Ratio (12.00-20.00); Blood Urea Nitrogen 11.8 mg/dL (9.0-27.0); Calcium 8.1 mg/dL (8.7-10.3); Carbon Dioxide 20.2 mmol/L (21.6-31.8); Chloride 107 mmol/L (96-109); Globulin 1.9 g/dL (1.6-3.3); Glucose 93 mg/dL (70-110); Magnesium 1.8 mg/dL (1.5-2.4); Potassium 3.8 mmol/L (3.5-5.5); Sodium 139 mmol/L (135-145); Total Bilirubin 0.5 mg/dL (0.3-1.2); Total Protein 5.1 g/dL (6.2-8.2)
--- NOTE | 2024-06-23 13:18 | P.PN ---
Subjective Progress Note Date: 06/23/24 Principal diagnosis: Reason for follow-up is fever perforated appendicitis Patient is a 59-year-old male with a past medical history significant for hypertension hyperlipidemia presenting to the hospital for evaluation of abdominal pain patient has been diagnosed with perforated appendicitis in this patient who is status post laparoscopic appendectomy completed on 06/19/2024 patient has been running a fever prompting this consultation on 06/22/2024. On today's evaluation that is 06/23/2024,the patient did have improvement in his fever pattern with a temperature of 100.3 at 1 AM afebrile this morning he is breathing comfortably no chest pain shortness of breath or cough mention abdominal pain has decreased intensity no nausea vomiting did have some diarrhea. Patient white count is down to 10.69 creatinine 0.9 blood cultures so far negative Objective - Vital Signs Vital signs: Vital Signs Temp 98.2 F 06/23/24 07:01 Pulse 72 06/23/24 07:01 Resp 17 06/23/24 08:30 BP 123/70 06/23/24 07:01 Pulse Ox 95 06/23/24 07:01 FiO2 Intake & Output 06/22/24 06/23/24 06/23/24 18:59 06:59 18:59 Other: Voiding Method Toilet Toilet # Voids 3 2 - Exam GENERAL DESCRIPTION: Middle-age male lying in bed in no distress RESPIRATORY SYSTEM: Unlabored breathing , decreased breath sounds at bases HEART: S1 S2 regular rate and rhythm , ABDOMEN: Soft , mild distention but no significant tenderness EXTREMITIES: No edema feet - Labs CBC & Chem 7: 06/23/24 03:07 06/23/24 03:07 Labs: Abnormal Lab Results - Last 24 Hours (Table) 06/23/24 06/23/24 Range/Units 03:07 03:07 WBC 10.69 H (4.50-10.00) X 10*3/uL RBC 4.14 L (4.40-5.60) X 10*6/uL Hgb 12.7 L (13.0-17.0) g/dL Hct 38.6 L (39.6-50.0) % Carbon Dioxide 20.2 L (21.6-31.8) mmol/L Calcium 8.1 L (8.7-10.3) mg/dL AST 63 H (14-35) U/L ALT 55 H (10-49) U/L C-Reactive Protein 9.60 H (0.00-0.80) mg/dL Total Protein 5.1 L (6.2-8.2) g/dL Albumin 3.2 L (3.8-4.9) g/dL Assessment and Plan (1) Sepsis Current Visit: Yes Status: Acute Code(s): A41.9 - SEPSIS, UNSPECIFIED ORGANISM SNOMED Code(s): 17987312 (2) Peritonitis Current Visit: Yes Status: Acute Code(s): K65.9 - PERITONITIS, UNSPECIFIED SNOMED Code(s): 15623840 (3) Perforated appendix Current Visit: Yes Status: Acute Code(s): K35.32 - AC APPENDICITIS W PERF, LOC PERITONITIS, & GANGR, W/O ABSCS SNOMED Code(s): 77109536 Plan: 1patient with the persistent fever in this patient presented to hospital with abdominal pain and has been diagnosed with perforated appendicitis status post laparoscopic appendectomy and likely on recent negative COVID with enteric gram- negative both aerobes and anaerobes patient has been on Zosyn still running a fever which is slightly concerning unfortunately no OR culture were done that would have guide further antibiotic therapy 2-patient fever pattern has improved and white count is almost normalized blood cultures so far negative. 3we will continue Zosyn while inpatient transition to oral antibiotics on discharge Dictation was produced using [employer] dictation software. please excuse any grammatical, word or spelling errors. Time with Patient: Less than 30
--- NOTE | 2024-06-23 15:50 | P.PN ---
Subjective Progress Note Date: 06/23/24 Hospital course: Patient is a pleasant 59-year-old male with a past medical history of hypertension and hyperlipidemia. He presented to the emergency department on 06/19/2024 secondary to abdominal pain. CT revealed acute uncomplicated appendicitis. Patient concerns for sepsis with tachycardia, pyrexia, and elevated WBC of 21.0 upon arrival. Patient was admitted admitted under general surgery team and was taken for laparoscopic appendectomy. We were consulted for medical management. Physical exam: Patient seen and fully evaluated at bedside this morning. Patient resting c omfortably in bed, easily awoken via verbal stimuli. Patient reports abdominal pain continues to improve. He continues to run elevated temps with temperature high of 100.6 F over the past 24 hours. Each day temps improved, however patient does continue to spike elevated fevers. Patient tolerating oral intake and denies having any other needs or complaints at this time. Vital signs reviewed and stable. General: Nontoxic, no distress and appears stated age. Derm: Skin warm and dry, normal coloration for ethnicity. Head: Atraumatic, normocephalic and symmetric. Eyes: EOM's intact, no lid lag, and anicteric sclera Mouth: no lip lesions, mucus membranes moist Cardiovascular: regular rate and rhythm with normal S1S2, no murmur, positive posterior tibial pulses bilaterally, and cap refill < 2 seconds. Lungs: Respirations even, regular, and unlabored on room air. Lungs CTA bilaterally, no rhonchi, no rales, no wheezing, and no accessory muscle usage. Abdominal: soft, no guarding, no appreciable organomegaly. Laparoscopic incisions intact. Ext: ROM intact. No gross muscle atrophy, no edema, no contractures Neuro: Speech clear, face symmetrical and CN II-XII grossly intact with no noted focal neuro deficits Psych: Alert and oriented to person, place, time, and situation. Appropriate and pleasant affect. Assessment and Plan of Care: Sepsis on admission, secondary to acute appendicitis Acute Appendicitis Status post laparoscopic appendectomy Elevated liver enzymes Leukocytosis, improving Pyrexia -Management of DVT prophylaxis, pain management, and wound/dressing management per primary admitting general surgery team. -DVT prophylaxis currently with heparin 5000 units subcu every 12 hours. -Continue IV antibiotics with Zosyn 3.375 g every 8 hours. -Cepheid 4 Plex viral panel negative. -Blood culture showing no growth to date. -Infectious disease following, reviewed documentation in chart. -Continue symptomatic care and pain management. -GI Prophylaxis with Protonix 40 mg daily. -General Surgery following, reviewed documentation in chart. Hypertension -Monitor vital signs and continue daily medication regimen with losartan 50 mg daily. Hyperlipidemia -Continue daily medication regimen with atorvastatin 40 mg nightly. Data and imaging reviewed: -Morning labs reviewed. CBC showing movement of leukocytosis with WBC count decreasing to 10.69 and stable normocytic anemia with hemoglobin of 12.7. BMP showing mild hypocarbia with bicarb of 20.2 otherwise normal findings. Blood glucose 93. Liver profile showing elevated AST of 63, ALT of 55, alkaline phosphatase of 84 and hypoalbuminemia with albumin of 3.2. -Vital signs reviewed. Blood pressure 123/70, heart rate 72, respiratory rate 17, temp 98.2 F, and SpO2 of 95% on room air. Temperature high of 100.6 F over the past 24 hours. Each day temps improve, however patient does continue to spike elevated fevers. -Blood culture showing no growth to date. Thank you for allowing us to participate in the care of this pleasant patient. Do not hesitate to contact us with questions. Someone can be reached from [facility] all hours of the day at [phone] or via [employer]. Patient was seen independently by Nurse Practitioner. This document was prepared using [employer] dictation software. Please allow for errors in certified indoor environmentalist while rare they do occur. Franco Prajapati NP rendered care for this patient independently, reviewed the findings and plan as documented in the note above and agree with plan. I did not physically speak with or examine the patient on this date. Objective - Vital Signs Vital signs: Vital Signs Temp 98.2 F 06/23/24 07:01 Pulse 72 06/23/24 07:01 Resp 17 06/23/24 07:01 BP 123/70 06/23/24 07:01 Pulse Ox 95 06/23/24 07:01 FiO2 Intake & Output 06/22/24 06/23/24 06/23/24 18:59 06:59 18:59 Other: Voiding Method Toilet # Voids 3 2 - Labs CBC & Chem 7: 06/23/24 03:07 06/23/24 03:07 Labs: Abnormal Lab Results - Last 24 Hours (Table) 06/22/24 06/22/24 Range/Units 05:54 08:35 WBC 12.36 H (4.50-10.00) X 10*3/uL RBC 3.70 L (4.40-5.60) X 10*6/uL Hgb 11.6 L (13.0-17.0) g/dL Hct 34.2 L (39.6-50.0) % Immature Gran # 0.07 H (0.00-0.04) X 10*3/uL Neutrophils # 10.10 H (1.80-7.70) X 10*3/uL Chloride 108 H (98-107) mmol/L Glucose 100 H (74-99) mg/dL Calcium 7.7 L (8.4-10.2) mg/dL Total Protein 5.0 L (6.3-8.2) g/dL Albumin 2.7 L (3.5-5.0) g/dL
[2024-06-24 09:25] LABS: HCT 36.3 % (39.6-50.0); MCH 30.4 pg (27.0-32.0); MCHC 33.1 g/dL (32.0-37.0); MCV 91.9 FL (80.0-97.0); Mean Platelet Volume 9.6 FL (9.5-12.2); NRBC Per 100 WBC 0 X 10*3/uL (0.00-0.01); Platelet Count 282 X 10*3/uL (140-440); RBC 3.95 X 10*6/uL (4.40-5.60); RDW 13.8 % (11.5-14.5)
[2024-06-24 10:15] LABS: Basophils # (A) 0.06 X 10*3/uL (0.00-0.10); Basophils % (A) 0.5 %; Eosinophils # (A) 0.26 X 10*3/uL (0.04-0.35); Eosinophils % (A) 2.3 %; Lymphocytes # (A) 2.61 X 10*3/uL (0.90-5.00); Lymphocytes % (A) 23.3 %; Monocytes # (A) 0.44 X 10*3/uL (0.20-1.00); Monocytes % (A) 3.9 %; Neutrophils # (A) 7.74 X 10*3/uL (1.80-7.70); Neutrophils % (A) 69.2 %; RBC Morphology Normal (Normal)
--- NOTE | 2024-06-24 11:08 | P.PN ---
Progress Note - Text Progress Note Date: 06/24/24 CHIEF COMPLAINT: Perforated appendicitis HISTORY OF PRESENT ILLNESS: Patient is POD #5 status post laparoscopic appendectomy. Patient reports no increase in pain. He reports his pain is tolerable. Denies any nausea or vomiting. He has had a bowel movements. Patient continues to have low grade fevers. PHYSICAL EXAM: VITAL SIGNS: Reviewed. GENERAL: Well-developed in no acute distress. HEENT: No sclera icterus. Extraocular movements grossly intact. Moist buccal mucosa. Head is atraumatic, normocephalic. ABDOMEN: Soft. Nondistended. Incision sites are clean dry and intact with small amount of bruising. Mild tenderness at incision sites NEUROLOGIC: Alert and oriented. Cranial nerves II through XII grossly intact. ASSESSMENT: 1. Perforated appendicitis status post laparoscopic appendectomy PLAN: -Infectious Disease recs -Encourage patient to ambulate in hallway -Encourage patient to use incentive spirometer -Continue IV Zosyn -Continue Regular Diet -AM labs reviewed -CT-AP with contrast ordered to evaluate for intraabdominal abscess -GI prophylaxis and DVT prophylaxis Mane Arevalo DO [facility] [phone]
[2024-06-24] MEDS: IOPAMIDOL CONTRAST (ORAL USE) VIAL PO PRN (11:27)
[2024-06-24 11:31] LABS: ALT 125 U/L (4-49); AST 138 U/L (17-59); African American GFR (CKD) >90 (>60 ml/min/1.73 sqM); Albumin 2.5 g/dL (3.5-5.0); Alkaline Phosphatase 117 U/L (38-126); Anion Gap 4 mmol/L; Blood Urea Nitrogen 10 mg/dL (9-20); Calcium 8.1 mg/dL (8.4-10.2); Carbon Dioxide 25 mmol/L (22-30); Chloride 110 mmol/L (98-107); Globulin 2.4 g/dL; Glucose 90 mg/dL (74-99); Non-African American GFR(CKD) 89 (>60 ml/min/1.73 sqM); Potassium 3.6 mmol/L (3.5-5.1); Sodium 139 mmol/L (137-145); Total Bilirubin 0.7 mg/dL (0.2-1.3); Total Protein 4.9 g/dL (6.3-8.2)
--- NOTE | 2024-06-24 13:43 | CT ---
EXAMINATION TYPE: CT abdomen pelvis w con DATE OF EXAM: 06/24/2024 COMPARISON: Prior CT 5 days earlier CLINICAL INDICATION: Male, 59 years old with history of Intraabdominal Abscess; PHH, INTRA ABDOMINAL ABSCESS TECHNIQUE: Performed with Oral Contrast and with IV Contrast, patient injected with 100 mL of Isovue 300. CT DLP: 980.[address] CTDI: 14 mGy Automated exposure control for dose reduction was used. FINDINGS: LOWER CHEST: Tiny bilateral pleural effusions on the current study. More prominent posterior bibasila r consolidation and/or atelectasis on current study. ABDOMEN LIVER: Unremarkable GALLBLADDER AND BILE DUCTS: Contracted gallbladder. PANCREAS:Unremarkable.. SPLEEN: UnremarUnremarkableAL GLANDS: Unremarkable. KIDNEYS AND URETERS: No evidence of hydronephrosis. The kidneys enhance symmetrically. Contrast is de monstrated within both collecting systems on the delayed phase. Small nonobstructing bilateral renal calculi are redemonstrated. PELVIS BLADDER: Unremarkable REPRODUCTIVE: Mild enlarged prostate gland redemonstrated. ABDOMEN & PELVIS STOMACH AND BOWEL: Suboptimal study as oral contrast only reaches proximal and mid small bowel loops in the left midabdomen . There is incomplete opacification of the area of clinical concern near the c ecum. New surgical sutures near this level are seen axial image 66. There is new thin-walled fluid co llection in the pelvis posterior to the bladder measuring 6.8 x 4.8 cm axial image 74. There are a fe w smaller adjacent fluid collections for reference along the left posterior aspect image 74. There is additional 3.2 cm focal fluid collection in the right lower quadrant axial image 66 near the sutures . Adjacent bowel loops show wall thickening. Fat stranding at this level is present in the right lowe r quadrant and pelvis PERITONEUM: No evidence of pneumoperitoneum. VASCULATURE: Mild atherosclerotic calcifications are present throughout the abdominal aorta and its b ranches. No evidence of aortic aneurysm. Pelvic phleboliths. MUSCULOSKELETAL: Degenerative changes of the bilateral SI joints with anterior bridging. Multilevel d egenerative changes of the visualized spine. Grade 1 anterolisthesis of L5 on S1 with bilateral pars defects. Chronic-appearing anterior wedging of the L1 vertebral body is redemonstrated. No retropulsi on. LYMPH NODES: No evidence for lymphadenopathy. SOFT UnremarkableINAL WALL: Unremarkable IMPRESSION: 1. Suboptimal study. Interval surgery with new inflammatory change and multifocal abscesses suspecte d in the lower abdomen and pelvis. [facility], , 06/24/2024 1:41 PM
--- NOTE | 2024-06-24 14:46 | P.PN ---
Subjective Progress Note Date: 06/24/24 Hospital course: Patient is a pleasant 59-year-old male with a past medical history of hypertension and hyperlipidemia. He presented to the emergency department on 06/19/2024 secondary to abdominal pain. CT revealed acute uncomplicated appendicitis. Patient concerns for sepsis with tachycardia, pyrexia, and elevated WBC of 21.0 upon arrival. Patient was admitted admitted under general surgery team and was taken for laparoscopic appendectomy. We were consulted for medical management. Physical exam: Patient seen and fully evaluated at bedside this morning. Patient resting c omfortably in bed, easily awoken via verbal stimuli. Patient reports abdominal pain continues to improve. He continues to run elevated temps with temperature high of 100.6 F over the past 24 hours. Each day temps improved, however patient does continue to spike elevated fevers. Patient tolerating oral intake and denies having any other needs or complaints at this time. Vital signs reviewed and stable. General: Nontoxic, no distress and appears stated age. Derm: Skin warm and dry, normal coloration for ethnicity. Head: Atraumatic, normocephalic and symmetric. Eyes: EOM's intact, no lid lag, and anicteric sclera Mouth: no lip lesions, mucus membranes moist Cardiovascular: regular rate and rhythm with normal S1S2, no murmur, positive posterior tibial pulses bilaterally, and cap refill < 2 seconds. Lungs: Respirations even, regular, and unlabored on room air. Lungs CTA bilaterally, no rhonchi, no rales, no wheezing, and no accessory muscle usage. Abdominal: soft, no guarding, no appreciable organomegaly. Laparoscopic incisions intact. Ext: ROM intact. No gross muscle atrophy, no edema, no contractures Neuro: Speech clear, face symmetrical and CN II-XII grossly intact with no noted focal neuro deficits Psych: Alert and oriented to person, place, time, and situation. Appropriate and pleasant affect. Assessment and Plan of Care: Sepsis on admission, secondary to acute appendicitis Multifocal abscesses within the abdomen and pelvis Elevated liver enzymes Status post laparoscopic appendectomy Leukocytosis, improving Pyrexia -CT Abdomen and Pelvis with IV contrast was completed showing new inflammatory changes and multifocal abscesses suspected in the lower abdomen and pelvis. -Management of DVT prophylaxis, pain management, and wound/dressing management per primary admitting general surgery team. -DVT prophylaxis currently with heparin 5000 units subcu every 12 hours. -Continue IV antibiotics with Zosyn 3.375 g every 8 hours. -Cepheid 4 Plex viral panel negative. -Blood culture showing no growth to date. -Infectious disease following, reviewed documentation in chart. -Continue symptomatic care and pain management. -GI Prophylaxis with Protonix 40 mg daily. -General Surgery following, discussed CT findings with general surgeon recommended consult to interventional radiology. -Interventional radiology consulted for drainage of abscesses and drain plac ement. Hypertension -Monitor vital signs and continue daily medication regimen with losartan 50 mg daily. Hyperlipidemia -Continue daily medication regimen with atorvastatin 40 mg nightly. Data and imaging reviewed: -Morning labs reviewed. CBC showing leukocytosis with WBC count of 11.20 and stable normocytic anemia with hemoglobin of 12.0. BMP showing hyperchloremia with chloride of 110 otherwise normal findings. Blood glucose 90. Liver profile showing further elevation of liver enzymes with AST of 138 and ALT of 125. -Vital signs reviewed. Blood pressure 123/70, heart rate 72, respiratory rate 17, temp 98.2 F, and SpO2 of 95% on room air. Temperature high of 99.9 F over the past 24 hours. Each day temps improve, however patient does continue to spike elevated fevers. -Blood culture showing no growth to date. -CT Abdomen and Pelvis with IV contrast was completed showing new inflammatory changes and multifocal abscesses suspected in the lower abdomen and pelvis. Thank you for allowing us to participate in the care of this pleasant patient. Do not hesitate to contact us with questions. Someone can be reached from the [facility] hospitalist group all hours of the day at [phone] or via [employer]. Patient was seen independently by Nurse Practitioner. This document was prepared using [employer] dictation software. Please allow for errors in magnetic resonance technologist while rare they do occur. Franco Prajapati NP rendered care for this patient independently, reviewed the findings and plan as documented in the note above and agree with plan. I did not physically speak with or examine the patient on this date. Objective - Vital Signs Vital signs: Vital Signs Temp 98.4 F 06/24/24 07:04 Pulse 72 06/24/24 07:04 Resp 18 06/24/24 07:04 BP 122/74 06/24/24 07:04 Pulse Ox 97 06/24/24 07:04 FiO2 Intake & Output 06/23/24 06/24/24 06/24/24 18:59 06:59 18:59 Other: Voiding Method Toilet Toilet # Voids 3 3 - Labs CBC & Chem 7: 06/24/24 06:06 06/24/24 06:06 Labs: Abnormal Lab Results - Last 24 Hours (Table) 06/23/24 06/23/24 Range/Units 03:07 03:07 WBC 10.69 H (4.50-10.00) X 10*3/uL RBC 4.14 L (4.40-5.60) X 10*6/uL Hgb 12.7 L (13.0-17.0) g/dL Hct 38.6 L (39.6-50.0) % Carbon Dioxide 20.2 L (21.6-31.8) mmol/L Calcium 8.1 L (8.7-10.3) mg/dL AST 63 H (14-35) U/L ALT 55 H (10-49) U/L C-Reactive Protein 9.60 H (0.00-0.80) mg/dL Total Protein 5.1 L (6.2-8.2) g/dL Albumin 3.2 L (3.8-4.9) g/dL Microbiology - Last 24 Hours (Table) 06/22/24 08:35 Blood Culture - Preliminary Blood
--- NOTE | 2024-06-24 21:29 | P.PN ---
Subjective Progress Note Date: 06/24/24 Principal diagnosis: Reason for follow-up is fever perforated appendicitis This is a telehealth visit Patient is a 59-year-old male with a past medical history significant for hypertension hyperlipidemia presenting to the hospital for evaluation of abdominal pain patient has been diagnosed with perforated appendicitis in this patient who is status post laparoscopic appendectomy completed on 06/19/2024 patient has been running a fever prompting this consultation on 06/22/2024. On today's evaluation that is 06/24/2024, the patient continues to be running a low-grade fever, the patient is on room air and breathing comfortably, the Pt denies having any chest pain or cough, the patient denies having any worsening abdominal pain no nausea vomiting still having some diarrhea. Patient white count is 9.20, creatinine 0.[address] abdominal pelvis completed with evidence of multiple and abdominal abscess Objective - Vital Signs Vital signs: Vital Signs Temp 98.4 F 06/24/24 07:04 Pulse 72 06/24/24 07:04 Resp 18 06/24/24 07:04 BP 122/74 06/24/24 07:04 Pulse Ox 97 06/24/24 07:04 FiO2 Intake & Output 06/23/24 06/24/24 06/24/24 18:59 06:59 18:59 Other: Voiding Method Toilet Toilet # Voids 3 3 - Exam Middle-age male up in the room in no distress No tachypnea or accessory muscle respiration use Unlabored breathing Patient is awake alert oriented x 3 - Labs CBC & Chem 7: 06/24/24 06:06 06/24/24 06:06 Labs: Abnormal Lab Results - Last 24 Hours (Table) 06/23/24 06/24/24 Range/Units 03:07 06:06 WBC 11.20 H (4.50-10.00) X 10*3/uL RBC 3.95 L (4.40-5.60) X 10*6/uL Hgb 12.0 L (13.0-17.0) g/dL Hct 36.3 L (39.6-50.0) % Immature Gran # 0.09 H (0.00-0.04) X 10*3/uL Neutrophils # 7.74 H (1.80-7.70) X 10*3/uL Carbon Dioxide 20.2 L (21.6-31.8) mmol/L Calcium 8.1 L (8.7-10.3) mg/dL AST 63 H (14-35) U/L ALT 55 H (10-49) U/L C-Reactive Protein 9.60 H (0.00-0.80) mg/dL Total Protein 5.1 L (6.2-8.2) g/dL Albumin 3.2 L (3.8-4.9) g/dL Microbiology - Last 24 Hours (Table) 06/22/24 08:35 Blood Culture - Preliminary Blood Assessment and Plan (1) Sepsis Current Visit: Yes Status: Acute Code(s): A41.9 - SEPSIS, UNSPECIFIED ORGANISM SNOMED Code(s): 37340079 (2) Peritonitis Current Visit: Yes Status: Acute Code(s): K65.9 - PERITONITIS, UNSPECIFIED SNOMED Code(s): 40134157 (3) Perforated appendix Current Visit: Yes Status: Acute Code(s): K35.32 - AC APPENDICITIS W PERF, LOC PERITONITIS, & GANGR, W/O ABSCS SNOMED Code(s): 07479194 Plan: 1patient with the persistent fever in this patient presented to hospital with abdominal pain and has been diagnosed with perforated appendicitis status post l aparoscopic appendectomy and likely on recent negative COVID with enteric gram- negative both aerobes and anaerobes patient has been on Zosyn still running a fever which is slightly concerning unfortunately no OR culture were done that would have guide further antibiotic therapy 2-patient still running low-grade fever white count slightly up today CT abdominal pelvis now with evidence of mild and abdominal abscess patient benefit from IR drainage of this abscess and fluid obtained for culture for now we will continue with Zosyn and adjust antibiotic further on the basis of culture report Dictation was produced using [employer] dictation software. please excuse any grammatical, word or spelling errors. Time with Patient: Less than 30
[2024-06-25 05:12] LABS: HCT 39.6 % (39.0-53.0); HGB 12.9 gm/dL (13.0-17.5); MCH 30.3 pg (25.0-35.0); MCHC 32.6 g/dL (31.0-37.0); MCV 92.9 fL (80.0-100.0); Mean Platelet Volume 8.1; Platelet Count 325 k/uL (150-450); RBC 4.26 m/uL (4.30-5.90); RDW 13.4 % (11.5-15.5)
[2024-06-25 05:13] LABS: ALT 159 U/L (4-49); AST 149 U/L (17-59); African American GFR (CKD) >90 (>60 ml/min/1.73 sqM); Albumin 2.7 g/dL (3.5-5.0); Albumin/Globulin Ratio 1.1; Alkaline Phosphatase 135 U/L (38-126); Anion Gap 3 mmol/L; Blood Urea Nitrogen 11 mg/dL (9-20); Calcium 8.2 mg/dL (8.4-10.2); Carbon Dioxide 27 mmol/L (22-30); Chloride 108 mmol/L (98-107); Globulin 2.5 g/dL; Glucose 103 mg/dL (74-99); Non-African American GFR(CKD) 86 (>60 ml/min/1.73 sqM); Potassium 3.8 mmol/L (3.5-5.1); Sodium 138 mmol/L (137-145); Total Bilirubin 0.6 mg/dL (0.2-1.3); Total Protein 5.2 g/dL (6.3-8.2)
[2024-06-25 05:38] LABS: Eosinophils # (M) 0.72 k/uL (0-0.7); Lymphocytes # (M) 3.36 k/uL (1.0-4.8); Monocytes # (M) 0.24 k/uL (0-1.0); Neutrophils # (M) 7.68 k/uL (1.3-7.7); Neutrophils % (M) 64 %; Nucleated Red Blood Cells 0 /100 WBC (0-0); Total Cells Counted 100
[2024-06-25 09:51] LABS: Magnesium 2.2 mg/dL (1.5-2.4)
--- NOTE | 2024-06-25 11:14 | P.PN ---
Subjective Progress Note Date: 06/25/24 SURGICAL PROGRESS NOTE CHIEF COMPLAINT: Perforated appendicitis HISTORY OF PRESENT ILLNESS: Patient is postop day #5 status post laparoscopic appendectomy. Still reporting abdominal pain. Pain more in the upper right abdomen near incision. He continues to have low-grade temps. CT scan Had reported suboptimal study. In full surgery with new inflammatory changes and multifocal abscesses suspected in the lower abdomen and pelvis. WBC did go up from 11.2-12. LFTs elevated. PHYSICAL EXAM: VITAL SIGNS: Reviewed. GENERAL: Well-developed in no acute distress. HEENT: No sclera icterus. Extraocular movements grossly intact. Moist buccal mucosa. Head is atraumatic, normocephalic. ABDOMEN: Soft. Nondistended. Incision sites are clean dry and intact with small amount of bruising. Mild tenderness at incision site left side abdomen NEUROLOGIC: Alert and oriented. Cranial nerves II through XII grossly intact. ASSESSMENT: 1. Perforated appendicitis status post laparoscopic appendectomy 2. Now with CT scan evidence of multifocal abscesses in the lower abdomen and pelvis PLAN: -IR on consult for possible drain placement -Antibiotics per infectious disease -Abdominal binder ordered for support -Encourage patient to ambulate -GI prophylaxis Protonix and DVT prophylaxis subcu heparin Physician [employer] note has been reviewed by physician. Signing provider agrees with the documented findings, assessment, and plan of care. Objective - Vital Signs Vital signs: Vital Signs Temp 98.7 F 06/25/24 07:38 Pulse 78 06/25/24 07:38 Resp 17 06/25/24 07:38 BP 115/69 06/25/24 07:38 Pulse Ox 93 L 06/25/24 07:38 FiO2 Intake & Output 06/24/24 06/25/24 06/25/24 18:59 06:59 18:59 Other: Voiding Method Toilet # Voids 2 3 - Labs CBC & Chem 7: 06/25/24 04:32 06/25/24 04:32 Labs: Abnormal Lab Results - Last 24 Hours (Table) 06/24/24 06/25/24 06/25/24 Range/Units 06:06 04:32 04:32 WBC 12.0 H (3.8-10.6) k/uL RBC 4.26 L (4.30-5.90) m/uL Hgb 12.9 L (13.0-17.5) gm/dL Eosinophils # (Manual) 0.72 H (0-0.7) k/uL Chloride 110 H 108 H (98-107) mmol/L Glucose 103 H (74-99) mg/dL Calcium 8.1 L 8.2 L (8.4-10.2) mg/dL AST 138 H 149 H (17-59) U/L ALT 125 H 159 H (4-49) U/L Alkaline Phosphatase 135 H (38-126) U/L Total Protein 4.9 L 5.2 L (6.3-8.2) g/dL Albumin 2.5 L 2.7 L (3.5-5.0) g/dL Microbiology - Last 24 Hours (Table) 06/22/24 08:35 Blood Culture - Preliminary Blood
--- NOTE | 2024-06-25 12:52 | P.PN ---
Subjective Progress Note Date: 06/25/24 Principal diagnosis: Reason for follow-up is fever perforated appendicitis Patient is a 59-year-old male with a past medical history significant for hypertension hyperlipidemia presenting to the hospital for evaluation of abdominal pain patient has been diagnosed with perforated appendicitis in this patient who is status post laparoscopic appendectomy completed on 06/19/2024 patient has been running a fever prompting this consultation on 06/22/2024. On today's evaluation that is 06/25/2024, Patient is afebrile patient is currently on room air and denies having any shortness of breath, the patient denies any chest pain or cough, the patient denies any nausea vomiting abdominal pain is currently controlled did have some diarrhea. Patient with cholesterol 0.0 creatinine 0.97 liver enzymes slightly up Objective - Vital Signs Vital signs: Vital Signs Temp 98.7 F 06/25/24 07:38 Pulse 78 06/25/24 07:38 Resp 17 06/25/24 07:38 BP 115/69 06/25/24 07:38 Pulse Ox 93 L 06/25/24 07:38 FiO2 Intake & Output 06/24/24 06/25/24 06/25/24 18:59 06:59 18:59 Other: Voiding Method Toilet # Voids 2 3 - Exam GENERAL DESCRIPTION: Middle-age male lying in bed in no distress RESPIRATORY SYSTEM: Unlabored breathing , decreased breath sounds at bases HEART: S1 S2 regular rate and rhythm , ABDOMEN: Soft mild distention but no significant tenderness EXTREMITIES: No edema feet - Labs CBC & Chem 7: 06/25/24 04:32 06/25/24 04:32 Labs: Abnormal Lab Results - Last 24 Hours (Table) 06/25/24 06/25/24 Range/Units 04:32 04:32 WBC 12.0 H (3.8-10.6) k/uL RBC 4.26 L (4.30-5.90) m/uL Hgb 12.9 L (13.0-17.5) gm/dL Eosinophils # (Manual) 0.72 H (0-0.7) k/uL Chloride 108 H (98-107) mmol/L Glucose 103 H (74-99) mg/dL Calcium 8.2 L (8.4-10.2) mg/dL AST 149 H (17-59) U/L ALT 159 H (4-49) U/L Alkaline Phosphatase 135 H (38-126) U/L Total Protein 5.2 L (6.3-8.2) g/dL Albumin 2.7 L (3.5-5.0) g/dL Microbiology - Last 24 Hours (Table) 06/22/24 08:35 Blood Culture - Preliminary Blood Assessment and Plan (1) Sepsis Current Visit: Yes Status: Acute Code(s): A41.9 - SEPSIS, UNSPECIFIED ORGANISM SNOMED Code(s): 52879049 (2) Peritonitis Current Visit: Yes Status: Acute Code(s): K65.9 - PERITONITIS, UNSPECIFIED SNOMED Code(s): 54335592 (3) Perforated appendix Current Visit: Yes Status: Acute Code(s): K35.32 - AC APPENDICITIS W PERF, LOC PERITONITIS, & GANGR, W/O ABSCS SNOMED Code(s): 97653559 Plan: 1patient with the persistent fever in this patient presented to hospital with abdominal pain and has been diagnosed with perforated appendicitis status post laparoscopic appendectomy and likely on recent negative COVID with enteric gram- negative both aerobes and anaerobes patient has been on Zosyn still running a fever which is slightly concerning unfortunately no OR culture were done that would have guide further antibiotic therapy 2-patient still running low-grade fever white count slightly up today CT abdominal pelvis now with evidence of mild and abdominal abscess 3IR has been consulted for drainage of the abscess fluid should be sent for the culture 4will continue Zosyn adjust antibiotic further on bases of culture report Dictation was produced using [employer] dictation software. please excuse any grammatical, word or spelling errors. Time with Patient: Less than 30
--- NOTE | 2024-06-25 17:43 | P.PN ---
Subjective Progress Note Date: 06/25/24 Hospital course: Patient is a pleasant 59-year-old male with a past medical history of hypertension and hyperlipidemia. He presented to the emergency department on 06/19/2024 secondary to abdominal pain. CT revealed acute uncomplicated appendicitis. Patient concerns for sepsis with tachycardia, pyrexia, and elevated WBC of 21.0 upon arrival. Patient was admitted admitted under general surgery team and was taken for laparoscopic appendectomy. We were consulted for medical management. Physical exam: Vital signs reviewed and stable. General: Nontoxic, no distress and appears stated age. Derm: Skin warm and dry, normal coloration for ethnicity. Head: Atraumatic, normocephalic and symmetric. Eyes: EOM's intact, no lid lag, and anicteric sclera Mouth: no lip lesions, mucus membranes moist Cardiovascular: regular rate and rhythm with normal S1S2, no murmur, positive po sterior tibial pulses bilaterally, and cap refill < 2 seconds. Lungs: Respirations even, regular, and unlabored on room air. Lungs CTA bilaterally, no rhonchi, no rales, no wheezing, and no accessory muscle usage. Abdominal: soft, no guarding, no appreciable organomegaly. Laparoscopic incisions intact. Ext: ROM intact. No gross muscle atrophy, no edema, no contractures Neuro: Speech clear, face symmetrical and CN II-XII grossly intact with no noted focal neuro deficits Psych: Alert and oriented to person, place, time, and situation. Appropriate and pleasant affect. Assessment and Plan of Care: Sepsis on admission, secondary to acute appendicitis Multifocal abscesses within the abdomen and pelvis Transaminitis Status post laparoscopic appendectomy Leukocytosis Pyrexia -CT Abdomen and Pelvis with IV contrast was completed showing new inflammatory changes and multifocal abscesses suspected in the lower abdomen and pelvis. -CT findings were discussed with general surgeon in detail. -Management of DVT prophylaxis, pain management, and wound/dressing management per primary admitting general surgery team. -DVT prophylaxis currently with heparin 5000 units subcu every 12 hours. -Continue IV antibiotics with Zosyn 3.375 g every 8 hours. -Blood culture showing no growth to date. -Infectious disease following, reviewed documentation in chart. -Continue symptomatic care and pain management. -GI Prophylaxis with Protonix 40 mg daily. -Interventional radiology consulted for drainage of abscesses and drain placement. Hypertension -Monitor vital signs and continue daily medication regimen with losartan 50 mg daily. Hyperlipidemia -Continue daily medication regimen with atorvastatin 40 mg nightly. Data and imaging reviewed: -Morning labs reviewed. CBC showing leukocytosis with WBC count of 12.0 and stable normocytic anemia with hemoglobin of 12.9. BMP showing hyperchloremia with chloride of 108 otherwise normal findings. Blood glucose 103. Liver profile showing continued elevation of liver enzymes slightly worsening with AST of 149, ALT of 159, and alkaline phosphatase of 135. -Vital signs reviewed. Blood pressure 115/69, heart rate 78, respiratory rate 17, temp 98.7 F, and SpO2 of 93% on room air. Temperature high over the past 24 hours is 100.4 F. Thank you for allowing us to participate in the care of this pleasant patient. Do not hesitate to contact us with questions. Someone can be reached from the [facility] hospitalist group all hours of the day at [phone] or via [employer]. Patient was seen independently by Nurse Practitioner. This document was prepared using [employer] dictation software. Please allow for errors in energy and sustainability manager while rare they do occur. Franco Prajapati NP rendered care for this patient independently, reviewed the findings and plan as documented in the note above and agree with plan. I did not physically speak with or examine the patient on this date. Objective - Vital Signs Vital signs: Vital Signs Temp 98.7 F 06/25/24 07:38 Pulse 78 06/25/24 07:38 Resp 17 06/25/24 07:38 BP 115/69 06/25/24 07:38 Pulse Ox 93 L 06/25/24 07:38 FiO2 Intake & Output 06/24/24 06/25/24 06/25/24 18:59 06:59 18:59 Other: Voiding Method Toilet # Voids 2 3 - Labs CBC & Chem 7: 06/25/24 04:32 06/25/24 04:32 Labs: Abnormal Lab Results - Last 24 Hours (Table) 06/24/24 06/24/24 06/25/24 Range/Units 06:06 06:06 04:32 WBC 11.20 H 12.0 H (4.50-10.00) X 10*3/uL RBC 3.95 L 4.26 L (4.40-5.60) X 10*6/uL Hgb 12.0 L 12.9 L (13.0-17.0) g/dL Hct 36.3 L (39.6-50.0) % Immature Gran # 0.09 H (0.00-0.04) X 10*3/uL Neutrophils # 7.74 H (1.80-7.70) X 10*3/uL Eosinophils # (Manual) 0.72 H (0-0.7) k/uL Chloride 110 H (98-107) mmol/L Glucose (74-99) mg/dL Calcium 8.1 L (8.4-10.2) mg/dL AST 138 H (17-59) U/L ALT 125 H (4-49) U/L Alkaline Phosphatase (38-126) U/L Total Protein 4.9 L (6.3-8.2) g/dL Albumin 2.5 L (3.5-5.0) g/dL 06/25/24 Range/Units 04:32 WBC (4.50-10.00) X 10*3/uL RBC (4.40-5.60) X 10*6/uL Hgb (13.0-17.0) g/dL Hct (39.6-50.0) % Immature Gran # (0.00-0.04) X 10*3/uL Neutrophils # (1.80-7.70) X 10*3/uL Eosinophils # (Manual) (0-0.7) k/uL Chloride 108 H (98-107) mmol/L Glucose 103 H (74-99) mg/dL Calcium 8.2 L (8.4-10.2) mg/dL AST 149 H (17-59) U/L ALT 159 H (4-49) U/L Alkaline Phosphatase 135 H (38-126) U/L Total Protein 5.2 L (6.3-8.2) g/dL Albumin 2.7 L (3.5-5.0) g/dL Microbiology - Last 24 Hours (Table) 06/22/24 08:35 Blood Culture - Preliminary Blood
[2024-06-26 09:46] LABS: HCT 36.4 % (39.6-50.0); HGB 12.2 g/dL (13.0-17.0); MCH 30.2 pg (27.0-32.0); MCHC 33.5 g/dL (32.0-37.0); MCV 90.1 FL (80.0-97.0); Mean Platelet Volume 9.3 FL (9.5-12.2); NRBC Per 100 WBC 0 X 10*3/uL (0.00-0.01); Platelet Count 393 X 10*3/uL (140-440); RBC 4.04 X 10*6/uL (4.40-5.60); RBC Morphology Normal (Normal); RDW 13.8 % (11.5-14.5); WBC 12.32 X 10*3/uL (4.50-10.00)
[2024-06-26 09:49] LABS: ALT 139 U/L (10-49); AST 93 U/L (14-35); Albumin 3.1 g/dL (3.8-4.9); Albumin/Globulin Ratio 1.35 Ratio (1.60-3.17); Alkaline Phosphatase 122 U/L (41-126); Blood Urea Nitrogen 11.7 mg/dL (9.0-27.0); Calcium 8.1 mg/dL (8.7-10.3); Carbon Dioxide 24.4 mmol/L (21.6-31.8); Chloride 105 mmol/L (96-109); Globulin 2.3 g/dL (1.6-3.3); Glucose 121 mg/dL (70-110); Potassium 3.9 mmol/L (3.5-5.5); Sodium 139 mmol/L (135-145); Total Bilirubin 0.3 mg/dL (0.3-1.2); Total Protein 5.4 g/dL (6.2-8.2)
--- NOTE | 2024-06-26 12:12 | P.PN ---
Subjective Progress Note Date: 06/26/24 Hospital course: Patient is a pleasant 59-year-old male with a past medical history of hypertension and hyperlipidemia. He presented to the emergency department on 06/19/2024 secondary to abdominal pain. CT revealed acute uncomplicated appendicitis. Patient concerns for sepsis with tachycardia, pyrexia, and elevated WBC of 21.0 upon arrival. Patient was admitted admitted under general surgery team and was taken for laparoscopic appendectomy on 06/20/2024. We were consulted for medical management. Patient with continued persistent pyrexia. CT Abdomen and Pelvis with IV contrast was completed showing new inflammatory changes and multifocal abscesses suspected in the lower abdomen and pelvis. Discussed in detail with general surgeon and it was recommended to consult interventional radiology for placement of drain and drainage of abscesses. Discussed with interventional radiologist stating they will not do procedure. Patient is now scheduled for laparoscopic washout washout later today. Physical exam: Patient seen and fully evaluated at bedside this morning. He reports feeling discouraged about staying in the hospital and just feeling eager to get back home. Reports abdominal pain is controlled and denies any other complaints at this time. Patient is scheduled to undergo laparoscopic washout later this afternoon. Vital signs reviewed and stable. General: Nontoxic, no distress and appears stated age. Derm: Skin warm and dry, normal coloration for ethnicity. Head: Atraumatic, normocephalic and symmetric. Eyes: EOM's intact, no lid lag, and anicteric sclera Mouth: no lip lesions, mucus membranes moist Cardiovascular: regular rate and rhythm with normal S1S2, no murmur, positive p osterior tibial pulses bilaterally, and cap refill < 2 seconds. Lungs: Respirations even, regular, and unlabored on room air. Lungs CTA bilaterally, no rhonchi, no rales, no wheezing, and no accessory muscle usage. Abdominal: soft mild diffuse abdominal tenderness, no guarding, no appreciable organomegaly. Laparoscopic incisions intact. Abdominal binder in place. Ext: ROM intact. No gross muscle atrophy, no edema, no contractures Neuro: Speech clear, face symmetrical and CN II-XII grossly intact with no noted focal neuro deficits Psych: Alert and oriented to person, place, time, and situation. Appropriate and pleasant affect. Assessment and Plan of Care: Sepsis on admission, secondary to acute appendicitis Multifocal abscesses within the abdomen and pelvis Transaminitis Status post laparoscopic appendectomy Leukocytosis Pyrexia -CT Abdomen and Pelvis with IV contrast was completed showing new inflammatory changes and multifocal abscesses suspected in the lower abdomen and pelvis. -General Surgery following, discussed plan of care with both Dr. Krishnamurthy and Dr. Sierra. Patient is scheduled to undergo laparoscopic washout later today. -Management of DVT prophylaxis, pain management, and wound/dressing management per primary admitting general surgery team. -DVT prophylaxis currently with heparin 5000 units subcu every 12 hours. -Continue IV antibiotics with Zosyn 3.375 g every 8 hours. -Blood culture showed no growth. -Infectious disease following, reviewed documentation in chart. -Continue symptomatic care and pain management. -GI Prophylaxis with Protonix 40 mg daily. -Interventional radiology consulted for drainage of abscesses and drain placement. Hypertension -Monitor vital signs and continue daily medication regimen with losartan 50 mg daily. Hyperlipidemia -Continue daily medication regimen with atorvastatin 40 mg nightly. Data and imaging reviewed: -Morning labs reviewed. CBC showing WBC count of 12.32 and hemoglobin of 12.2. BMP unremarkable. Blood glucose 121. Magnesium 2.0. Liver enzymes remain elevated but slightly improving with AST of 93, ALT of 139, and alkaline phosphatase of 122. -Vital signs reviewed. Blood pressure 119/76, heart rate 110, respiratory rate 15, temp 98.4 F, and SpO2 of 96% on room air. Temperature high over the past 24 hours is 99.0 F. Thank you for allowing us to participate in the care of this pleasant patient. Do not hesitate to contact us with questions. Someone can be reached from the [facility] hospitalist group all hours of the day at [phone] or via [employer]. Patient was seen independently by Nurse Practitioner. This document was prepared using [employer] dictation software. Please allow for er rors in departmental buyer while rare they do occur. Farnco Prajapati NP rendered care for this patient independently, reviewed the findings and plan as documented in the note above and agree with plan. I did not physically speak with or examine the patient on this date. Objective - Vital Signs Vital signs: Vital Signs Temp 98.4 F 06/26/24 07:56 Pulse 110 H 06/26/24 07:56 Resp 15 06/26/24 07:56 BP 119/76 06/26/24 07:56 Pulse Ox 96 06/26/24 07:56 FiO2 Intake & Output 11/06/26/24 06/26/24 18:59 06:59 18:59 Other: # Voids 1 - Labs CBC & Chem 7: 06/26/24 03:57 06/26/24 03:57 Labs: Microbiology - Last 24 Hours (Table) 06/22/24 08:35 Blood Culture - Preliminary Blood
--- NOTE | 2024-06-26 13:43 | P.PN ---
Subjective Progress Note Date: 06/26/24 Principal diagnosis: Reason for follow-up is fever perforated appendicitis Patient is a 59-year-old male with a past medical history significant for hypertension hyperlipidemia presenting to the hospital for evaluation of abdominal pain patient has been diagnosed with perforated appendicitis in this patient who is status post laparoscopic appendectomy completed on 06/19/2024 patient has been running a fever prompting this consultation on 06/22/2024. On today's evaluation that is 06/26/2024, patient has been afebrile, patient is breathing comfortably and is currently on room air, patient denies having any significant cough no chest pain, patient denies nausea vomiting or any worsening abdominal pain. Patient white count is 12.32 creatinine 0.9 Objective - Vital Signs Vital signs: Vital Signs Temp 98.4 F 06/26/24 07:56 Pulse 110 H 06/26/24 07:56 Resp 15 06/26/24 07:56 BP 119/76 06/26/24 07:56 Pulse Ox 96 06/26/24 07:56 FiO2 Intake & Output 06/25/24 06/26/24 06/26/24 18:59 06:59 18:59 Other: # Voids 1 - Exam GENERAL DESCRIPTION: Middle-age male lying in bed in no distress RESPIRATORY SYSTEM: Unlabored breathing , decreased breath sounds at bases HEART: S1 S2 regular rate and rhythm , ABDOMEN: Soft mild distention but no significant tenderness EXTREMITIES: No edema feet - Labs CBC & Chem 7: 06/26/24 03:57 06/26/24 03:57 Labs: Abnormal Lab Results - Last 24 Hours (Table) 06/26/24 06/26/24 Range/Units 03:57 03:57 WBC 12.32 H (4.50-10.00) X 10*3/uL RBC 4.04 L (4.40-5.60) X 10*6/uL Hgb 12.2 L (13.0-17.0) g/dL Hct 36.4 L (39.6-50.0) % MPV 9.3 L (9.5-12.2) FL Glucose 121 H (70-110) mg/dL Calcium 8.1 L (8.7-10.3) mg/dL AST 93 H (14-35) U/L ALT 139 H (10-49) U/L Total Protein 5.4 L (6.2-8.2) g/dL Albumin 3.1 L (3.8-4.9) g/dL Albumin/Globulin Ratio 1.35 L (1.60-3.17) Ratio Microbiology - Last 24 Hours (Table) 06/22/24 08:35 Blood Culture - Preliminary Blood Assessment and Plan (1) Sepsis Current Visit: Yes Status: Acute Code(s): A41.9 - SEPSIS, UNSPECIFIED ORGANISM SNOMED Code(s): 17080716 (2) Peritonitis Current Visit: Yes Status: Acute Code(s): K65.9 - PERITONITIS, UNSPECIFIED SNOMED Code(s): 69533204 (3) Perforated appendix Current Visit: Yes Status: Acute Code(s): K35.32 - AC APPENDICITIS W PERF, LOC PERITONITIS, & GANGR, W/O ABSCS SNOMED Code(s): 93619856 Plan: 1patient with the persistent fever in this patient presented to hospital with abdominal pain and has been diagnosed with perforated appendicitis status post laparoscopic appendectomy and likely on recent negative COVID with enteric gram- negative both aerobes and anaerobes patient has been on Zosyn still running a fever which is slightly concerning unfortunately no OR culture were done that would have guide further antibiotic therapy 2-patient still running low-grade fever white count slightly up today CT abdominal pelvis now with evidence of mild and abdominal abscess 3IR has not been able to do the drainage of the abscess and the patient scheduled for surgical drainage 4will continue Zosyn adjust antibiotic further on on the basis of the OR cultures after surgical drainage of the abscess Dictation was produced using [employer] dictation software. please excuse any grammatical, word or spelling errors. Time with Patient: Less than 30
[2024-06-26] MEDS: LACTATED RINGERS 1,000 ML BAG IV STA (15:28)
[2024-06-26] MEDS: IV FLUID CONTINUATION 1,000 ML IV ONE (15:32)
[2024-06-26] MEDS ORDERED: SUCCINYLCHOLINE CHLORIDE 200 MG/10 ML VIAL IV ONE (15:40)
[2024-06-26] MEDS ORDERED: PROPOFOL 10 MG/ML 20 ML VIAL IV ONE (15:40)
[2024-06-26] MEDS ORDERED: MIDAZOLAM 2 MG/2 ML VIAL ONE (15:40)
[2024-06-26] MEDS ORDERED: fentaNYL (PF) 50 MCG/ML 2 ML AMP ONE (15:40)
[2024-06-26] MEDS ORDERED: HYDROmorphone (PF) 1 MG/ML ONE (15:40)
[2024-06-26] MEDS ORDERED: ROCURONIUM 10 MG/ML (5 ML VIAL) IV ONE (15:40)
[2024-06-26] MEDS ORDERED: GLYCOPYRROLATE 0.2 MG/ML 2 ML VIAL ONE (15:40)
[2024-06-26] MEDS ORDERED: NEOSTIGMINE 1 MG/ML 10 ML VIAL ONE (15:40)
[2024-06-26] MEDS ORDERED: LIDOCAINE 1% INJ 10MG/ML (20 ML MDV) ONE (15:40)
[2024-06-26] MEDS: LIDOCAINE 1%-EPI 1:100,000 20 ML VIAL SQ ONE ×2 (16:02)
[2024-06-26 16:26] VITALS: BMI 24.5
--- NOTE | 2024-06-26 17:46 | P.OP ---
Date of Procedure: 06/26/24 Preoperative Diagnosis: Intra-abdominal abscess Postoperative Diagnosis: Intra-abdominal abscess status post ruptured appendicitis Retained fecalith Procedure(s) Performed: Laparoscopic converted to open abdominal washout Removal of retained fecalith, placement of ARIE drain Anesthesia: RENNY Surgeon: Bethany Sierra Pathology: other (Cultures of intra-abdominal abscess) Condition: stable Disposition: floor Indications for Procedure: 59-year-old male has been admitted status post laparoscopic appendectomy secondary to ruptured appendicitis. He has had multiple febrile episodes and CT of the abdomen and pelvis was performed with finding of abscess formation in the pelvis. Interventional radiology was consulted with refusal to be able to perform the procedure of drainage. Secondary to this, plan is for laparoscopic abdominal washout. Patient was explained the risks, benefits and alternatives to the procedure and did provide consent prior to returning the operating suite. Operative Findings: Abscess within the pelvis and retained fecalith Description of Procedure: Patient was brought to the operating and placed in supine position on the operating table. Sedation provided by anesthesia and the patient underwent endotracheal intubation. Patient was then prepped and draped in regular sterile fashion. Left upper quadrant incision was made at Naylor's point and the abdomen was entered under direct visualization using a Visiport. Pn eumoperitoneum was achieved. Additional 5 mm port was placed in the right upper quadrant. The patient was placed in Trendelenburg position. Small bowel was noted to be adhered to the abdominal wall in the pelvis and this was slowly peeled off. During this motion, abscess cavity was encountered with drainage of purulent material. Cultures were obtained. On further examination of the area, a fecalith was noted. With the finding of the fecalith, there was concern for possibility of bowel rupture and small suprapubic midline incision was made and dissection was carried to the fascia. The fascia was incised and peritoneum was entered. Examination of the area was completed with some finger dissection and drainage of further purulent material. Irrigation was placed and suction. The previous staple line from the appendectomy was evaluated and was noted to be intact. No obvious perforation or rupture of the bowel is noted. Fecalith was removed. Copious amounts irrigation placed in the abdomen and removed. ARIE drain was then placed in the pelvis from the right upper quadrant 5 mm incision site and secured in place with a 3-0 nylon suture. Fascial incision was closed of the suprapubic midline incision using a running looped PDS suture. Skin chad were placed. Remaining laparoscopic incision was closed with 4-0 Vicryl subcuticular suture. Sterile dressing was applied. Patient was awakened and taken to postanesthesia care unit in stable condition.
[2024-06-27 08:30] LABS: HCT 39.7 % (39.6-50.0); HGB 13.1 g/dL (13.0-17.0); MCH 30.4 pg (27.0-32.0); MCV 92.1 FL (80.0-97.0); Mean Platelet Volume 9.2 FL (9.5-12.2); NRBC Per 100 WBC 0 X 10*3/uL (0.00-0.01); Platelet Count 504 X 10*3/uL (140-440); RBC 4.31 X 10*6/uL (4.40-5.60); RDW 13.8 % (11.5-14.5); WBC 14.78 X 10*3/uL (4.50-10.00)
[2024-06-27 09:00] LABS: Magnesium 2.3 mg/dL (1.5-2.4)
[2024-06-27 09:33] LABS: BUN/Creat Ratio 12.38 Ratio (12.00-20.00); Blood Urea Nitrogen 16.1 mg/dL (9.0-27.0); Carbon Dioxide 22.8 mmol/L (21.6-31.8); Chloride 101 mmol/L (96-109); Glucose 134 mg/dL (70-110); Potassium 4.5 mmol/L (3.5-5.5); Sodium 136 mmol/L (135-145)
[2024-06-27 09:34] LABS: ALT 112 U/L (10-49); AST 61 U/L (14-35); Albumin 3.1 g/dL (3.8-4.9); Albumin/Globulin Ratio 1.15 Ratio (1.60-3.17); Alkaline Phosphatase 111 U/L (41-126); Calcium 8.3 mg/dL (8.7-10.3); Globulin 2.7 g/dL (1.6-3.3); Total Bilirubin 0.7 mg/dL (0.3-1.2); Total Protein 5.8 g/dL (6.2-8.2)
--- NOTE | 2024-06-27 10:09 | P.PN ---
Subjective Progress Note Date: 06/27/24 Patient seen and examined at bedside. States he is feeling abdominal soreness after surgery yesterday. Otherwise, afebrile. ARIE drain in place Objective - Vital Signs Vital signs: Vital Signs Temp 99.1 F 06/27/24 08:00 Pulse 101 H 06/27/24 08:00 Resp 16 06/27/24 08:00 BP 96/65 06/27/24 08:00 Pulse Ox 92 L 06/27/24 08:00 FiO2 Intake & Output 06/26/24 06/27/24 06/27/24 18:59 06:59 18:59 Intake Total 700 Output Total 191 650 Balance 509 -650 Weight 79.832 kg Intake: IV 700 Output: Drainage 150 Right Abdomen 150 Urine 180 500 Estimated Blood Loss 11 Other: # Voids 4 2 - Constitutional General appearance: Present: cooperative, no acute distress - Gastrointestinal Gastrointestinal Comment(s): Soft, appropriate tenderness, ARIE drain in place with serosanguineous output, incision site with surgical dressing in place - Psychiatric Psychiatric: Present: A&O x's 3 - Labs CBC & Chem 7: 06/27/24 03:01 06/27/24 03:01 Labs: Abnormal Lab Results - Last 24 Hours (Table) 06/27/24 06/27/24 Range/Units 03:01 03:01 WBC 14.78 H (4.50-10.00) X 10*3/uL RBC 4.31 L (4.40-5.60) X 10*6/uL Plt Count 504 H (140-440) X 10*3/uL MPV 9.2 L (9.5-12.2) FL Anion Gap 12.20 H (4.00-12.00) mmol/L Glucose 134 H (70-110) mg/dL Calcium 8.3 L (8.7-10.3) mg/dL AST 61 H (14-35) U/L ALT 112 H (10-49) U/L Total Protein 5.8 L (6.2-8.2) g/dL Albumin 3.1 L (3.8-4.9) g/dL Albumin/Globulin Ratio 1.15 L (1.60-3.17) Ratio Microbiology - Last 24 Hours (Table) 06/26/24 16:20 Gram Stain - Preliminary Aspirate 06/26/24 16:20 Gram Stain - Preliminary Abdomen Assessment and Plan Plan: Postoperative day #1, laparoscopic washout, converted to open, fecalith removal and ARIE drain placement. ARIE drain with serosanguineous output. Continue IV antibiotics. Okay to advance diet today. Increase activity. Await cultures from surgical washout. Case discussed in depth with patient.
--- NOTE | 2024-06-27 11:52 | P.PN ---
Subjective Progress Note Date: 06/27/24 Hospital course: Patient is a pleasant 59-year-old male with a past medical history of hypertension and hyperlipidemia. He presented to the emergency department on 06/19/2024 secondary to abdominal pain. CT revealed acute uncomplicated appendicitis. Patient concerns for sepsis with tachycardia, pyrexia, and elevated WBC of 21.0 upon arrival. Patient was admitted admitted under general surgery team and was taken for laparoscopic appendectomy on 06/20/2024. We were consulted for medical management. Patient with continued persistent pyrexia. CT Abdomen and Pelvis with IV contrast was completed showing new inflammatory changes and multifocal abscesses suspected in the lower abdomen and pelvis. Discussed in detail with general surgeon and it was recommended to consult interventional radiology for placement of drain and drainage of abscesses. Discussed with interventional radiologist stating they will not do procedure. Patient is now scheduled for laparoscopic washout washout later today. Physical exam: Patient seen and fully evaluated at bedside this morning. Patient appears to be doing well this morning. He is postoperative day 1 status post open abdominal washout with removal of retained faecalis and ARIE drain placement and was using his incentive spirometer upon entering room. He reports diffuse abdominal pain/discomfort, but otherwise denies any complaints. Patient states he is just glad everything is done and understands he is going to be here a couple of days but looking forward to going home once he can. Denies having any other questions, needs, complaints, or concerns at this time. Vital signs reviewed and stable. General: Nontoxic, no distress and appears stated age. Derm: Skin warm and dry, normal coloration for ethnicity. Head: Atraumatic, normocephalic and symmetric. Eyes: EOM's intact, no lid lag, and anicteric sclera Mouth: no lip lesions, mucus membranes moist Cardiovascular: regular rate and rhythm with normal S1S2, no murmur, positive posterior tibial pulses bilaterally, and cap refill < 2 seconds. Lungs: Respirations even, regular, and unlabored on room air. Lungs CTA bilaterally, no rhonchi, no rales, no wheezing, and no accessory muscle usage. Abdominal: soft mild diffuse abdominal tenderness, no guarding, no appreciable organomegaly. Postoperative abdominal dressing in place. ARIE drain in place. Ext: ROM intact. No gross muscle atrophy, no edema, no contractures Neuro: Speech clear, face symmetrical and CN II-XII grossly intact with no noted focal neuro deficits Psych: Alert and oriented to person, place, time, and situation. Appropriate and pleasant affect. Assessment and Plan of Care: Sepsis on admission, secondary to acute appendicitis Status post laparoscopic appendectomy on 06/20/2024 Status post open abdominal washout with removal of retained fecalith and ARIE drain placement on 06/26/24 Multifocal abscesses within the abdomen and pelvis Transaminitis Leukocytosis Pyrexia -CT Abdomen and Pelvis with IV contrast was completed showing new inflammatory changes and multifocal abscesses suspected in the lower abdomen and pelvis. -General Surgery following, discussed plan of care with Dr. Sierra. -Management of DVT prophylaxis, pain management, and wound/dressing management per primary admitting general surgery team. -DVT prophylaxis currently with heparin 5000 units subcu every 12 hours. -Continue IV antibiotics with Zosyn 3.375 g every 8 hours. -Blood culture showed no growth. -Infectious disease following, reviewed documentation in chart. -Continue symptomatic care and pain management. -GI Prophylaxis with Protonix 40 mg daily. -Interventional radiology consulted for drainage of abscesses and drain placement. Acute kidney injury -Renal function increasing. Patient started on lactated Ringer's at 75 cc/h. Currently BUN 16.1 with creatinine of 1.3, and GFR of 64 with baseline creatinine of 0.9. -Continue IV fluid hydration. Discontinued Toradol. Hold losartan until renal function improves. -Continue close monitoring with repeat a.m. labs. Hypertension -Monitor vital signs and continue daily medication regimen with losartan 50 mg daily. Hyperlipidemia -Continue daily medication regimen with atorvastatin 40 mg nightly. Data and imaging reviewed: -Morning labs reviewed. CBC showing leukocytosis with WBC count of 14.78 and thrombocytosis with platelet count of 504. BMP showing slightly elevated anion gap of 12.20 and acute kidney injury with creatinine of 1.3, and GFR of 64 with baseline creatinine of 0.9. -Vital signs reviewed. Blood pressure soft this morning at 96/65, heart rate 101, respiratory rates 16, temp 99.1 F, and SpO2 of 92% on room air. Temperature high over the past 24 hours was 99.9 F. Thank you for allowing us to participate in the care of this pleasant patient. Do not hesitate to contact us with questions. Someone can be reached from the [facility] hospitalist group all hours of the day at [phone] or via [employer]. Patient was seen independently by Nurse Practitioner. This document was prepared using [employer] dictation software. Please allow for e rrors in chicken handler while rare they do occur. Franco Prajapati NP rendered care for this patient independently, reviewed the findings and plan as documented in the note above and agree with plan. I did not physically speak with or examine the patient on this date. Objective - Vital Signs Vital signs: Vital Signs Temp 99.9 F H 06/27/24 01:42 Pulse 101 H 06/27/24 01:42 Resp 16 06/27/24 01:42 BP 99/64 06/27/24 01:42 Pulse Ox 91 L 06/27/24 01:42 FiO2 Intake & Output 06/26/24 06/27/24 06/27/24 18:59 06:59 18:59 Intake Total 700 Output Total 191 650 Balance 509 -650 Weight 79.832 kg Intake: IV 700 Output: Drainage 150 Right Abdomen 150 Urine 180 500 Estimated Blood Loss 11 Other: # Voids 4 2 - Labs CBC & Chem 7: 06/27/24 03:01 06/27/24 03:01 Labs: Abnormal Lab Results - Last 24 Hours (Table) 06/26/24 06/26/24 Range/Units 03:57 03:57 WBC 12.32 H (4.50-10.00) X 10*3/uL RBC 4.04 L (4.40-5.60) X 10*6/uL Hgb 12.2 L (13.0-17.0) g/dL Hct 36.4 L (39.6-50.0) % MPV 9.3 L (9.5-12.2) FL Glucose 121 H (70-110) mg/dL Calcium 8.1 L (8.7-10.3) mg/dL AST 93 H (14-35) U/L ALT 139 H (10-49) U/L Total Protein 5.4 L (6.2-8.2) g/dL Albumin 3.1 L (3.8-4.9) g/dL Albumin/Globulin Ratio 1.35 L (1.60-3.17) Ratio Microbiology - Last 24 Hours (Table) 06/26/24 16:20 Gram Stain - Preliminary Aspirate 06/26/24 16:20 Gram Stain - Preliminary Abdomen
[2024-06-27] MEDS ORDERED: KETOROLAC 15 MG/ML 1 ML VIAL IVP SCH (12:00)
[2024-06-27] MEDS: HYDROcodone/APAP 5-325MG 1 EACH TAB PO PRN (12:34)
[2024-06-27] MEDS: LACTATED RINGERS 1,000 ML IV SCH (12:35)
--- NOTE | 2024-06-28 06:52 | P.PN ---
Progress Note - Text Progress Note Date: 06/28/24 Patient seen and examined. He was sitting up on the side of the bed and states he does feel a lot better. He was febrile overnight. Denies nausea and vomiting. Tolerating diet. Pain is controlled VSS General-NAD Abdomen-soft, ND, incisional TTP, ARIE-serosang 59 year old male POD #2 Laparoscopic Converted to Open Abdominal Washout, Fecalith Removal, and ARIE drain placement -Low Fat Diet -Continue Zosyn -Pain and Nausea Control -AM labs pending -Cultures pending Mane Arevalo DO [facility] [phone]
--- NOTE | 2024-06-28 09:26 | P.PN ---
Subjective Progress Note Date: 06/27/24 Principal diagnosis: Reason for follow-up is fever perforated appendicitis Patient is a 59-year-old male with a past medical history significant for hypertension hyperlipidemia presenting to the hospital for evaluation of abdominal pain patient has been diagnosed with perforated appendicitis in this patient who is status post laparoscopic appendectomy completed on 06/19/2024 patient has been running a fever prompting this consultation on 06/22/2024. Patient is status post laparoscopic converted to open abdominal washout removal of retained fecalith placement of the ARIE drain procedure completed on 06/26/2024. On today's evaluation that is 06/27/2024, Patient is afebrile this morning patient denies having any chest pain shortness of breath or cough, the patient is currently on room air, patient abdominal pain has decreased in intensity no nausea no vomiting. Patient white count is 14.78, creatinine is 1.3 cultures currently pending Objective - Vital Signs Vital signs: Vital Signs Temp 99.1 F 06/27/24 08:00 Pulse 101 H 06/27/24 09:40 Resp 16 06/27/24 09:40 BP 96/65 06/27/24 08:00 Pulse Ox 92 L 06/27/24 08:00 FiO2 Intake & Output 06/26/24 06/27/24 06/27/24 18:59 06:59 18:59 Intake Total 700 Output Total 191 650 40 Balance 509 -650 -40 Weight 79.832 kg Intake: IV 700 Output: Drainage 150 40 Right Abdomen 150 40 Urine 180 500 Estimated Blood Loss 11 Other: Voiding Method Toilet # Voids 4 2 - Exam GENERAL DESCRIPTION: Middle-age male lying in bed in no distress RESPIRATORY SYSTEM: Unlabored breathing , decreased breath sounds at bases HEART: S1 S2 regular rate and rhythm , ABDOMEN: Soft mild distention but no significant tenderness EXTREMITIES: No edema feet - Labs CBC & Chem 7: 06/27/24 03:01 06/27/24 03:01 Labs: Abnormal Lab Results - Last 24 Hours (Table) 06/27/24 06/27/24 Range/Units 03:01 03:01 WBC 14.78 H (4.50-10.00) X 10*3/uL RBC 4.31 L (4.40-5.60) X 10*6/uL Plt Count 504 H (140-440) X 10*3/uL MPV 9.2 L (9.5-12.2) FL Anion Gap 12.20 H (4.00-12.00) mmol/L Glucose 134 H (70-110) mg/dL Calcium 8.3 L (8.7-10.3) mg/dL AST 61 H (14-35) U/L ALT 112 H (10-49) U/L Total Protein 5.8 L (6.2-8.2) g/dL Albumin 3.1 L (3.8-4.9) g/dL Albumin/Globulin Ratio 1.15 L (1.60-3.17) Ratio Microbiology - Last 24 Hours (Table) 06/22/24 08:35 Blood Culture - Final Blood 06/26/24 16:20 Gram Stain - Preliminary Aspirate 06/26/24 16:20 Gram Stain - Preliminary Abdomen Assessment and Plan (1) Sepsis Current Visit: Yes Status: Acute Code(s): A41.9 - SEPSIS, UNSPECIFIED ORGANISM SNOMED Code(s): 10467828 (2) Peritonitis Current Visit: Yes Status: Acute Code(s): K65.9 - PERITONITIS, UNSPECIFIED SNOMED Code(s): 59582632 (3) Perforated appendix Current Visit: Yes Status: Acute Code(s): K35.32 - AC APPENDICITIS W PERF, LOC PERITONITIS, & GANGR, W/O ABSCS SNOMED Code(s): 97623764 Plan: 1patient with the persistent fever in this patient presented to hospital with abdominal pain and has been diagnosed with perforated appendicitis status post laparoscopic appendectomy and likely on recent negative COVID with enteric gram- negative both aerobes and anaerobes patient has been on Zosyn still running a fever which is slightly concerning unfortunately no OR culture were done that would have guide further antibiotic therapy 2-patient still running low-grade fever white count slightly up today CT abdominal pelvis now with evidence of mild and abdominal abscess 3IR has not been able to do the drainage of the abscess and the patient is status post laparoscopic converted to open abdominal washout removal of retained fecalith ARIE drain placement as well as abdominal culture currently pending 4patient will continue on Zosyn while waiting for the culture to finalize to determine discharge antibiotics which may be IV discussed with the renal case manager Dictation was produced using [employer] software. please excuse any grammatical, word or spelling errors. Time with Patient: Less than 30
[2024-06-28 10:37] LABS: HCT 39.1 % (39.6-50.0); HGB 12.6 g/dL (13.0-17.0); MCH 30.4 pg (27.0-32.0); MCHC 32.2 g/dL (32.0-37.0); MCV 94.2 FL (80.0-97.0); Mean Platelet Volume 9.4 FL (9.5-12.2); NRBC Per 100 WBC 0 X 10*3/uL (0.00-0.01); Platelet Count 601 X 10*3/uL (140-440); RBC 4.15 X 10*6/uL (4.40-5.60); RDW 14.2 % (11.5-14.5); WBC 15.84 X 10*3/uL (4.50-10.00)
[2024-06-28 12:25] LABS: ALT 87 U/L (10-49); AST 44 U/L (14-35); Albumin 3.2 g/dL (3.8-4.9); Alkaline Phosphatase 109 U/L (41-126); BUN/Creat Ratio 15.25 Ratio (12.00-20.00); Blood Urea Nitrogen 18.3 mg/dL (9.0-27.0); Calcium 8.3 mg/dL (8.7-10.3); Carbon Dioxide 23.4 mmol/L (21.6-31.8); Chloride 101 mmol/L (96-109); Globulin 2.9 g/dL (1.6-3.3); Glucose 156 mg/dL (70-110); Magnesium 2.1 mg/dL (1.5-2.4); Sodium 135 mmol/L (135-145); Total Bilirubin 0.5 mg/dL (0.3-1.2); Total Protein 6.1 g/dL (6.2-8.2)
--- NOTE | 2024-06-28 13:38 | P.PN ---
Subjective Progress Note Date: 06/28/24 Principal diagnosis: Reason for follow-up is fever perforated appendicitis Patient is a 59-year-old male with a past medical history significant for hypertension hyperlipidemia presenting to the hospital for evaluation of abdominal pain patient has been diagnosed with perforated appendicitis in this patient who is status post laparoscopic appendectomy completed on 06/19/2024 patient has been running a fever prompting this consultation on 06/22/2024. Patient is status post laparoscopic converted to open abdominal washout removal of retained fecalith placement of the ARIE drain procedure completed on 06/26/2024. On today's evaluation that is 06/28/2024,the patient did spike a fever of 101 F at 1 AM however denies any fever or any chills this afternoon, patient is breathing comfortably on room air, the patient denies chest pain shortness of breath and no significant cough, patient abdominal pain is currently controlled denies any nausea vomiting. Patient white count slightly up to 15.84 creatinine is 1.2 cultures are currently pending Objective - Vital Signs Vital signs: Vital Signs Temp 99.1 F 06/28/24 07:33 Pulse 60 06/28/24 07:33 Resp 19 06/28/24 07:33 BP 93/58 06/28/24 07:33 Pulse Ox 100 06/28/24 07:33 FiO2 Intake & Output 06/27/24 06/28/24 06/28/24 18:59 06:59 18:59 Output Total 70 70 Balance -70 -70 Output: Drainage 70 70 Right Abdomen 70 70 Other: Voiding Method Toilet Toilet # Voids 4 4 - Exam GENERAL DESCRIPTION: Middle-age male lying in bed in no distress RESPIRATORY SYSTEM: Unlabored breathing , decreased breath sounds at bases HEART: S1 S2 regular rate and rhythm , ABDOMEN: Soft mild distention but no significant tenderness EXTREMITIES: No edema feet - Labs CBC & Chem 7: 06/28/24 02:31 06/28/24 02:31 Labs: Abnormal Lab Results - Last 24 Hours (Table) 06/27/24 Range/Units 03:01 Anion Gap 12.20 H (4.00-12.00) mmol/L Glucose 134 H (70-110) mg/dL Calcium 8.3 L (8.7-10.3) mg/dL AST 61 H (14-35) U/L ALT 112 H (10-49) U/L Total Protein 5.8 L (6.2-8.2) g/dL Albumin 3.1 L (3.8-4.9) g/dL Albumin/Globulin Ratio 1.15 L (1.60-3.17) Ratio Microbiology - Last 24 Hours (Table) 06/22/24 08:35 Blood Culture - Final Blood 06/26/24 16:20 Gram Stain - Preliminary Aspirate 06/26/24 16:20 Gram Stain - Preliminary Abdomen Assessment and Plan (1) Sepsis Current Visit: Yes Status: Acute Code(s): A41.9 - SEPSIS, UNSPECIFIED ORGANISM SNOMED Code(s): 19161791 (2) Peritonitis Current Visit: Yes Status: Acute Code(s): K65.9 - PERITONITIS, UNSPECIFIED SNOMED Code(s): 25990431 (3) Perforated appendix Current Visit: Yes Status: Acute Code(s): K35.32 - AC APPENDICITIS W PERF, LOC PERITONITIS, & GANGR, W/O ABSCS SNOMED Code(s): 25305363 Plan: 1patient with the persistent fever in this patient presented to hospital with abdominal pain and has been diagnosed with perforated appendicitis status post laparoscopic appendectomy and likely on recent negative COVID with enteric gram-negative both aerobes and anaerobes patient has been on Zosyn still running a fever which is slightly concerning unfortunately no OR culture were done that would have guide further antibiotic therapy 2-patient still running low-grade fever white count slightly up today CT abdominal pelvis now with evidence of mild and abdominal abscess 3IR has not been able to do the drainage of the abscess and the patient is status post laparoscopic converted to open abdominal washout removal of retained fecalith ARIE drain placement as well as abdominal culture currently pending 4patient did have a new fever and also slight worsening of the white count blood culture will be repeated we will continue Zosyn however will add daptomycin for gram-positive coverage while waiting for the culture to finalize Dictation was produced using [employer] dictation software. please excuse any grammatical, word or spelling errors. Time with Patient: Less than 30
--- NOTE | 2024-06-28 14:32 | P.PN ---
Subjective Progress Note Date: 06/28/24 Principal diagnosis: Perforated appendicitis The patient with perforated abdominal abscess s/p lap appy 06/19/24. The patient had continued fevers had wash out 06/26 , On IV Zosyn , Dapto added Objective - Vital Signs Vital signs: Vital Signs Temp 99.8 F H 06/28/24 13:15 Pulse 87 06/28/24 13:15 Resp 18 06/28/24 13:15 BP 115/72 06/28/24 13:15 Pulse Ox 95 06/28/24 13:15 FiO2 Intake & Output 06/27/24 06/28/24 06/28/24 18:59 06:59 18:59 Output Total 70 70 Balance -70 -70 Output: Drainage 70 70 Right Abdomen 70 70 Other: Voiding Method Toilet Toilet # Voids 4 4 - Constitutional General appearance: Present: no acute distress - Respiratory Respiratory: bilateral: CTA - Gastrointestinal Gastrointestinal Comment(s): ARIE drain General gastrointestinal: Present: normal bowel sounds - Integumentary Integumentary: Present: normal - Labs CBC & Chem 7: 06/28/24 02:31 06/28/24 02:31 Labs: Abnormal Lab Results - Last 24 Hours (Table) 06/28/24 06/28/24 Range/Units 02:31 02:31 WBC 15.84 H (4.50-10.00) X 10*3/uL RBC 4.15 L (4.40-5.60) X 10*6/uL Hgb 12.6 L (13.0-17.0) g/dL Hct 39.1 L (39.6-50.0) % Plt Count 601 H (140-440) X 10*3/uL MPV 9.4 L (9.5-12.2) FL Glucose 156 H (70-110) mg/dL Calcium 8.3 L (8.7-10.3) mg/dL AST 44 H (14-35) U/L ALT 87 H (10-49) U/L Total Protein 6.1 L (6.2-8.2) g/dL Albumin 3.2 L (3.8-4.9) g/dL Albumin/Globulin Ratio 1.10 L (1.60-3.17) Ratio Microbiology - Last 24 Hours (Table) 06/22/24 08:35 Blood Culture - Final Blood Assessment and Plan (1) Perforated appendix Current Visit: Yes Status: Acute Code(s): K35.32 - AC APPENDICITIS W PERF, LOC PERITONITIS, & GANGR, W/O ABSCS SNOMED Code(s): 05070148 (2) Sepsis Current Visit: Yes Status: Acute Code(s): A41.9 - SEPSIS, UNSPECIFIED ORGANISM SNOMED Code(s): 26835401 (3) Abdominal pain Current Visit: Yes Status: Acute Code(s): R10.9 - UNSPECIFIED ABDOMINAL PAIN SNOMED Code(s): 32598690 Plan: The patient appears comfortable, pain is controlled, denies nausea, appreciate surgery, ID input, Daptomycin added to regimen on IV Zosynn
[2024-06-28] MEDS: DAPTOmycin 500 MG in SODIUM CHLORIDE 0.9% 50 ML IVPB SCH (15:17)
[2024-06-29 10:00] LABS: Basophils # (A) 0.06 X 10*3/uL (0.00-0.10); Basophils % (A) 0.4 %; Eosinophils # (A) 0.22 X 10*3/uL (0.04-0.35); Eosinophils % (A) 1.6 %; HCT 36.2 % (39.6-50.0); HGB 11.7 g/dL (13.0-17.0); Lymphocytes # (A) 2.28 X 10*3/uL (0.90-5.00); Lymphocytes % (A) 16.4 %; MCH 29.8 pg (27.0-32.0); MCHC 32.3 g/dL (32.0-37.0); MCV 92.3 FL (80.0-97.0); Mean Platelet Volume 8.9 FL (9.5-12.2); Monocytes # (A) 0.94 X 10*3/uL (0.20-1.00); Monocytes % (A) 6.8 %; NRBC Per 100 WBC 0 X 10*3/uL (0.00-0.01); Neutrophils # (A) 10.26 X 10*3/uL (1.80-7.70); Neutrophils % (A) 73.8 %; Platelet Count 617 X 10*3/uL (140-440); RBC 3.92 X 10*6/uL (4.40-5.60)
[2024-06-29 10:09] LABS: BUN/Creat Ratio 11.55 Ratio (12.00-20.00); Blood Urea Nitrogen 12.7 mg/dL (9.0-27.0); Calcium 8.3 mg/dL (8.7-10.3); Carbon Dioxide 22.7 mmol/L (21.6-31.8); Chloride 103 mmol/L (96-109); Glucose 112 mg/dL (70-110); Sodium 137 mmol/L (135-145)
--- NOTE | 2024-06-29 10:52 | P.PN ---
Subjective Perforated appendicitis The patient with perforated abdominal abscess s/p lap appy 06/19/24. The patient had continued fevers had wash out 06/26 , On IV Zosyn , Dapto added Objective - Vital Signs Vital signs: Vital Signs Temp 99.8 F H 06/28/24 13:15 Pulse 87 06/28/24 13:15 Resp 18 06/28/24 13:15 BP 115/72 06/28/24 13:15 Pulse Ox 95 06/28/24 13:15 FiO2 Intake & Output 06/27/24 06/28/24 06/28/24 18:59 06:59 18:59 Output Total 70 70 Balance -70 -70 Output: Drainage 70 70 Right Abdomen 70 70 Other: Voiding Method Toilet Toilet # Voids 4 4 - Constitutional General appearance: Present: no acute distress - Respiratory Respiratory: bilateral: CTA - Gastrointestinal Gastrointestinal Comment(s): ARIE drain General gastrointestinal: Present: normal bowel sounds - Integumentary Integumentary: Present: normal - Labs CBC & Chem 7: Assessment and Plan (1) Perforated appendix Current Visit: Yes Status: Acute Code(s): K35.32 - AC APPENDICITIS W PERF, LOC PERITONITIS, & GANGR, W/O ABSCS SNOMED Code(s): 27501758 (2) Sepsis Current Visit: Yes Status: Acute Code(s): A41.9 - SEPSIS, UNSPECIFIED ORGANISM SNOMED Code(s): 59259893 (3) Abdominal pain Current Visit: Yes Status: Acute Code(s): R10.9 - UNSPECIFIED ABDOMINAL PAIN SNOMED Code(s): 41734443 Plan: The patient appears comfortable, pain is controlled, denies nausea, appreciate surgery, ID input, Daptomycin added to regimen on IV Zosynn 06/29 Patient seen and examined at bedside Status post appendectomy/ARIE drain placement Very minimal output from the ARIE drain Defer to surgery except time to remove drain Very minimal abdominal pain per the patient Continue current management Clear surgery following, appreciate recommendations Objective - Vital Signs Vital signs: Vital Signs Temp 99.6 F 06/29/24 07:30 Pulse 93 06/29/24 07:30 Resp 17 06/29/24 07:30 BP 129/73 06/29/24 07:30 Pulse Ox 94 L 06/29/24 08:42 FiO2 Intake & Output 06/28/24 06/29/24 06/29/24 18:59 06:59 18:59 Intake Total 2094 120 Output Total 10 Balance 2084 120 Intake: Oral 2094 Output: Drainage 10 Right Abdomen 10 Other: Voiding Method Toilet # Voids 3 5 - Labs CBC & Chem 7: 06/29/24 03:42 06/29/24 03:42 Labs: Abnormal Lab Results - Last 24 Hours (Table) 06/28/24 06/29/24 06/29/24 Range/Units 02:31 03:42 03:42 WBC 13.90 H (4.50-10.00) X 10*3/uL RBC 3.92 L (4.40-5.60) X 10*6/uL Hgb 11.7 L (13.0-17.0) g/dL Hct 36.2 L (39.6-50.0) % Plt Count 617 H (140-440) X 10*3/uL MPV 8.9 L (9.5-12.2) FL Immature Gran # 0.14 H (0.00-0.04) X 10*3/uL Neutrophils # 10.26 H (1.80-7.70) X 10*3/uL BUN/Creatinine Ratio 11.55 L (12.00-20.00) Ratio Glucose 156 H 112 H (70-110) mg/dL Calcium 8.3 L 8.3 L (8.7-10.3) mg/dL AST 44 H (14-35) U/L ALT 87 H (10-49) U/L Total Protein 6.1 L (6.2-8.2) g/dL Albumin 3.2 L (3.8-4.9) g/dL Albumin/Globulin Ratio 1.10 L (1.60-3.17) Ratio Microbiology - Last 24 Hours (Table) 06/26/24 16:20 Gram Stain - Preliminary Abdomen Wound Culture - Preliminary Gram Neg Bacilli 06/26/24 16:20 Gram Stain - Preliminary Aspirate Body Fluid Culture - Preliminary Gram Neg Bacilli
--- NOTE | 2024-06-29 15:08 | P.PN ---
Subjective Progress Note Date: 06/29/24 Principal diagnosis: Reason for follow-up is fever perforated appendicitis Patient is a 59-year-old male with a past medical history significant for hypertension hyperlipidemia presenting to the hospital for evaluation of abdominal pain patient has been diagnosed with perforated appendicitis in this patient who is status post laparoscopic appendectomy completed on 06/19/2024 patient has been running a fever prompting this consultation on 06/22/2024. Patient is status post laparoscopic converted to open abdominal washout removal of retained fecalith placement of the ARIE drain procedure completed on 06/26/2024. On today's evaluation that is 06/29/2024,the patient did have a low-grade fever of 100.2 F at 1 AM, the patient denies having any rigors or chills no chest pain shortness of breath or cough abdominal pain is currently controlled no nausea no vomiting or any worsening diarrhea. Patient white count is down to 13.90, creatinine is 1.1 abdominal culture c urrently growing Pseudomonas aeruginosa Objective - Vital Signs Vital signs: Vital Signs Temp 99.6 F 06/29/24 07:30 Pulse 93 06/29/24 07:30 Resp 17 06/29/24 07:30 BP 129/73 06/29/24 07:30 Pulse Ox 94 L 06/29/24 08:42 FiO2 Intake & Output 06/28/24 06/29/24 06/29/24 18:59 06:59 18:59 Intake Total 2094 120 Output Total 10 Balance 2084 120 Intake: Oral 2094 120 Output: Drainage 10 Right Abdomen 10 Other: Voiding Method Toilet # Voids 3 5 - Exam GENERAL DESCRIPTION: Middle-age male lying in bed in no distress RESPIRATORY SYSTEM: Unlabored breathing , decreased breath sounds at bases HEART: S1 S2 regular rate and rhythm , ABDOMEN: Soft mild distention but no significant tenderness EXTREMITIES: No edema feet - Labs CBC & Chem 7: 06/29/24 03:42 06/29/24 03:42 Labs: Abnormal Lab Results - Last 24 Hours (Table) 06/29/24 06/29/24 Range/Units 03:42 03:42 WBC 13.90 H (4.50-10.00) X 10*3/uL RBC 3.92 L (4.40-5.60) X 10*6/uL Hgb 11.7 L (13.0-17.0) g/dL Hct 36.2 L (39.6-50.0) % Plt Count 617 H (140-440) X 10*3/uL MPV 8.9 L (9.5-12.2) FL Immature Gran # 0.14 H (0.00-0.04) X 10*3/uL Neutrophils # 10.26 H (1.80-7.70) X 10*3/uL BUN/Creatinine Ratio 11.55 L (12.00-20.00) Ratio Glucose 112 H (70-110) mg/dL Calcium 8.3 L (8.7-10.3) mg/dL Microbiology - Last 24 Hours (Table) 06/26/24 16:20 Gram Stain - Preliminary Abdomen Wound Culture - Preliminary Pseudomonas aeruginosa 06/26/24 16:20 Gram Stain - Preliminary Aspirate Body Fluid Culture - Preliminary Pseudomonas aeruginosa Assessment and Plan (1) Sepsis Current Visit: Yes Status: Acute Code(s): A41.9 - SEPSIS, UNSPECIFIED ORGANISM SNOMED Code(s): 34447837 (2) Peritonitis Current Visit: Yes Status: Acute Code(s): K65.9 - PERITONITIS, UNSPECIFIED SNOMED Code(s): 93119188 (3) Perforated appendix Current Visit: Yes Status: Acute Code(s): K35.32 - AC APPENDICITIS W PERF, LOC PERITONITIS, & GANGR, W/O ABSCS SNOMED Code(s): 14101612 Plan: 1patient with the persistent fever in this patient presented to hospital with abdominal pain and has been diagnosed with perforated appendicitis status post laparoscopic appendectomy and likely on recent negative COVID with enteric gram- negative both aerobes and anaerobes patient has been on Zosyn still running a fever which is slightly concerning unfortunately no OR culture were done that would have guide further antibiotic therapy 2-patient still running low-grade fever white count slightly up today CT abdominal pelvis now with evidence of mild and abdominal abscess 3IR has not been able to do the drainage of the abscess and the patient is status post laparoscopic converted to open abdominal washout removal of retained fecalith ARIE drain placement as well as abdominal culture currently growing Pseudomonas with sensitivities pending 4patient will be treated with Zosyn daptomycin and will yesterday awaiting abdominal pain cultures to be finalized Dictation was produced using [employer] software. please excuse any grammatical, word or spelling errors. Time with Patient: Less than 30
--- NOTE | 2024-06-29 15:08 | P.PN ---
Subjective Patient seen and evaluated at bedside. Patient doing well, denies fevers, chills, shortness of breath or chest pain. Patient admits to abdominal soreness. Objective - Vital Signs Vital signs: Vital Signs Temp 99.6 F 06/29/24 07:30 Pulse 93 06/29/24 07:30 Resp 17 06/29/24 07:30 BP 129/73 06/29/24 07:30 Pulse Ox 94 L 06/29/24 08:42 FiO2 Intake & Output 06/28/24 06/29/24 06/29/24 18:59 06:59 18:59 Intake Total 2094 120 Output Total 10 Balance 2084 120 Intake: Oral 2094 120 Output: Drainage 10 Right Abdomen 10 Other: Voiding Method Toilet # Voids 3 5 - Exam gen: nad cv: rrr pul: non labored breathing abd: soft, non distended, tender to palpation around incisions, mychal drain serosang output. - Labs CBC & Chem 7: 06/29/24 03:42 06/29/24 03:42 Labs: Abnormal Lab Results - Last 24 Hours (Table) 06/29/24 06/29/24 Range/Units 03:42 03:42 WBC 13.90 H (4.50-10.00) X 10*3/uL RBC 3.92 L (4.40-5.60) X 10*6/uL Hgb 11.7 L (13.0-17.0) g/dL Hct 36.2 L (39.6-50.0) % Plt Count 617 H (140-440) X 10*3/uL MPV 8.9 L (9.5-12.2) FL Immature Gran # 0.14 H (0.00-0.04) X 10*3/uL Neutrophils # 10.26 H (1.80-7.70) X 10*3/uL BUN/Creatinine Ratio 11.55 L (12.00-20.00) Ratio Glucose 112 H (70-110) mg/dL Calcium 8.3 L (8.7-10.3) mg/dL Microbiology - Last 24 Hours (Table) 06/26/24 16:20 Gram Stain - Preliminary Abdomen Wound Culture - Preliminary Pseudomonas aeruginosa 06/26/24 16:20 Gram Stain - Preliminary Aspirate Body Fluid Culture - Preliminary Pseudomonas aeruginosa Assessment and Plan Assessment: 59 year old male POD #3 Laparoscopic Converted to Open Abdominal Washout, Fecalith Removal, and MYCHAL drain placement -Low Fat Diet -Continue Zosyn -Pain and Nausea Control -wbc 15K -Cultures pending -discharge pending ID recs Bro Krishnamurthy DO [facility] [phone] Time with Patient: Less than 30
[2024-06-30 09:32] LABS: Basophils # (A) 0.1 k/uL (0-0.2); Basophils % (A) 1 %; Eosinophils # (A) 0.2 k/uL (0-0.7); Eosinophils % (A) 2 %; HCT 37.7 % (39.0-53.0); Lymphocytes # (A) 1.5 k/uL (1.0-4.8); Lymphocytes % (A) 13 %; MCHC 31.9 g/dL (31.0-37.0); MCV 94.3 fL (80.0-100.0); Mean Platelet Volume 6.7; Monocytes # (A) 0.5 k/uL (0-1.0); Monocytes % (A) 4 %; Neutrophils # (A) 9.1 k/uL (1.3-7.7); Neutrophils % (A) 79 %; RDW 13.2 % (11.5-15.5); WBC 11.5 k/uL (3.8-10.6)
[2024-06-30 09:37] LABS: Platelet Count 709 k/uL (150-450)
[2024-06-30 09:47] LABS: ALT 128 U/L (4-49); AST 101 U/L (17-59); African American GFR (CKD) >90 (>60 ml/min/1.73 sqM); Albumin 3.2 g/dL (3.5-5.0); Alkaline Phosphatase 157 U/L (38-126); Anion Gap 6 mmol/L; Blood Urea Nitrogen 9 mg/dL (9-20); Calcium 8.5 mg/dL (8.4-10.2); Carbon Dioxide 27 mmol/L (22-30); Chloride 105 mmol/L (98-107); Globulin 3.1 g/dL; Glucose 144 mg/dL (74-99); Non-African American GFR(CKD) 86 (>60 ml/min/1.73 sqM); Sodium 138 mmol/L (137-145); Total Bilirubin 0.6 mg/dL (0.2-1.3); Total Protein 6.3 g/dL (6.3-8.2)
--- NOTE | 2024-06-30 10:09 | P.PN ---
Subjective Patient seen and evaluated at bedside. Patient doing well, did spike 1 fever overnight, 100.7. Tolerating diet, denies nausea or vomiting. Objective - Vital Signs Vital signs: Vital Signs Temp 98.2 F 06/30/24 07:30 Pulse 72 06/30/24 07:30 Resp 16 06/30/24 07:30 BP 121/76 06/30/24 07:30 Pulse Ox 99 06/30/24 07:30 FiO2 Intake & Output 06/29/24 06/30/24 06/30/24 18:59 06:59 18:59 Intake Total 890 Output Total 10 Balance 880 Intake: Intake, IV Titration 650 Amount DAPTOmycin 500 mg In 50 Sodium Chloride 0.9% 50 ml @ 100 mls/hr IVPB Q24H [facility] Rx#:[id number] Lactated Ringers 1,000 ml 600 @ 75 mls/hr IV .[id number] [facility] Rx#:[id number] Oral 240 Output: Drainage 10 Right Abdomen 10 Other: Voiding Method Toilet # Voids 1 - Exam gen: nad cv: rrr pul: non labored breathing abd: soft, non distended, tender to palpation around incisions, mychal drain serosang output. - Labs CBC & Chem 7: 06/30/24 09:20 06/30/24 09:20 Labs: Abnormal Lab Results - Last 24 Hours (Table) 06/29/24 06/30/24 06/30/24 Range/Units 03:42 09:20 09:20 WBC 11.5 H (3.8-10.6) k/uL RBC 4.00 L (4.30-5.90) m/uL Hgb 12.0 L (13.0-17.5) gm/dL Hct 37.7 L (39.0-53.0) % Plt Count 709 H D (150-450) k/uL Neutrophils # 9.1 H (1.3-7.7) k/uL BUN/Creatinine Ratio 11.55 L (12.00-20.00) Ratio Glucose 112 H 144 H (70-110) mg/dL Calcium 8.3 L (8.7-10.3) mg/dL AST 101 H (17-59) U/L ALT 128 H (4-49) U/L Alkaline Phosphatase 157 H (38-126) U/L Albumin 3.2 L (3.5-5.0) g/dL Microbiology - Last 24 Hours (Table) 06/26/24 16:20 Gram Stain - Final Abdomen Wound Culture - Final Pseudomonas aeruginosa 06/26/24 16:20 Gram Stain - Final Aspirate Body Fluid Culture - Final Pseudomonas aeruginosa 06/28/24 15:06 Blood Culture - Preliminary Blood 06/26/24 16:20 Anaerobic Culture - Preliminary Abdominal Fluid Bacteroides vulgatus Bacteroides uniformis 06/26/24 16:20 Anaerobic Culture - Preliminary Abdominal Fluid Bacteroides thetaiotaomicron Assessment and Plan Assessment: 59 year old male POD #4 Laparoscopic Converted to Open Abdominal Washout, Fecalith Removal, and MYCHAL drain placement -Low Fat Diet -Continue abx per ID -Pain and Nausea Control -wbc trending down to 11, -discharge pending ID recs Bro [facility] [phone] Time with Patient: Less than 30
--- NOTE | 2024-06-30 15:29 | P.PN ---
Subjective Progress Note Date: 06/30/24 Principal diagnosis: Reason for follow-up is fever perforated appendicitis Patient is a 59-year-old male with a past medical history significant for hypertension hyperlipidemia presenting to the hospital for evaluation of abdominal pain patient has been diagnosed with perforated appendicitis in this patient who is status post laparoscopic appendectomy completed on 06/19/2024 patient has been running a fever prompting this consultation on 06/22/2024. Patient is status post laparoscopic converted to open abdominal washout removal of retained fecalith placement of the ARIE drain procedure completed on 06/26/2024. On today's evaluation that is 06/30/2024, the patient did have a low-grade fever 100.7 at 1 AM the patient is afebrile since then he is currently breathing comfortably on room air no chest pain shortness of breath or cough abdominal discomfort has decreased no nausea vomiting. Patient white count is down to 11.5, creatinine 0.97 liver enzymes mildly el evated abdominal cultures growing Pseudomonas aeruginosa and bacteroids Objective - Vital Signs Vital signs: Vital Signs Temp 98.1 F 06/30/24 14:00 Pulse 84 06/30/24 14:00 Resp 17 06/30/24 14:00 BP 136/75 06/30/24 14:00 Pulse Ox 96 06/30/24 14:00 FiO2 Intake & Output 06/29/24 06/30/24 06/30/24 18:59 06:59 18:59 Intake Total 890 240 Output Total 10 10 Balance 880 230 Intake: Intake, IV Titration 650 Amount DAPTOmycin 500 mg In 50 Sodium Chloride 0.9% 50 ml @ 100 mls/hr IVPB Q24H [facility] Rx#:[id number] Lactated Ringers 1,000 ml 600 @ 75 mls/hr IV .[id number] [facility] Rx#:[id number] Oral 240 240 Output: Drainage 10 10 Right Abdomen 10 10 Other: Voiding Method Toilet Toilet # Voids 1 1 - Exam GENERAL DESCRIPTION: Middle-age male lying in bed in no distress RESPIRATORY SYSTEM: Unlabored breathing , decreased breath sounds at bases HEART: S1 S2 regular rate and rhythm , ABDOMEN: Soft mild distention but no significant tenderness EXTREMITIES: No edema feet - Labs CBC & Chem 7: 06/30/24 09:20 06/30/24 09:20 Labs: Abnormal Lab Results - Last 24 Hours (Table) 06/30/24 06/30/24 Range/Units 09:20 09:20 WBC 11.5 H (3.8-10.6) k/uL RBC 4.00 L (4.30-5.90) m/uL Hgb 12.0 L (13.0-17.5) gm/dL Hct 37.7 L (39.0-53.0) % Plt Count 709 H D (150-450) k/uL Neutrophils # 9.1 H (1.3-7.7) k/uL Glucose 144 H (74-99) mg/dL AST 101 H (17-59) U/L ALT 128 H (4-49) U/L Alkaline Phosphatase 157 H (38-126) U/L Albumin 3.2 L (3.5-5.0) g/dL Microbiology - Last 24 Hours (Table) 06/26/24 16:20 Gram Stain - Final Abdomen Wound Culture - Final Pseudomonas aeruginosa 06/26/24 16:20 Gram Stain - Final Aspirate Body Fluid Culture - Final Pseudomonas aeruginosa 06/28/24 15:06 Blood Culture - Preliminary Blood 06/26/24 16:20 Anaerobic Culture - Preliminary Abdominal Fluid Bacteroides vulgatus Bacteroides uniformis 06/26/24 16:20 Anaerobic Culture - Preliminary Abdominal Fluid Bacteroides thetaiotaomicron Assessment and Plan (1) Sepsis Current Visit: Yes Status: Acute Code(s): A41.9 - SEPSIS, UNSPECIFIED ORGANISM SNOMED Code(s): 39370956 (2) Peritonitis Current Visit: Yes Status: Acute Code(s): K65.9 - PERITONITIS, UNSPECIFIED SNOMED Code(s): 25695080 (3) Perforated appendix Current Visit: Yes Status: Acute Code(s): K35.32 - AC APPENDICITIS W PERF, LOC PERITONITIS, & GANGR, W/O ABSCS SNOMED Code(s): 27329429 Plan: 1patient with the persistent fever in this patient presented to hospital with abdominal pain and has been diagnosed with perforated appendicitis status post laparoscopic appendectomy and likely on recent negative COVID with enteric gram- negative both aerobes and anaerobes patient has been on Zosyn still running a fever which is slightly concerning unfortunately no OR culture were done that would have guide further antibiotic therapy 2-patient still running low-grade fever white count slightly up today CT abdominal pelvis now with evidence of mild and abdominal abscess 3IR has not been able to do the drainage of the abscess and the patient is status post laparoscopic converted to open abdominal washout removal of retained fecalith ARIE drain placement as well as abdominal culture currently growing Pseudomonas which is pansensitive as well as bacteroids 4I will discontinue daptomycin and Zosyn start the patient on cefepime and Flagyl, patient benefit from repeat CT abdominal pelvis on Tuesday before making any plans for discharge antibiotics Dictation was produced using [employer] dictation software. please excuse any grammatical, word or spelling errors. Time with Patient: Less than 30
--- NOTE | 2024-06-30 16:01 | P.PN ---
Subjective Progress Note Date: 06/30/24 (delayed charting seen at approx 1200) Patient is a 59-year-old male with history of hypertension dyslipidemia admitted with appendicitis and underwent laparoscopic Actamin ectomy on 06/20/2024 req uired open washout due to ruptured appendicitis with retained fecalith and placement of ARIE drain on 06/26/2024 and abscess formation. Patient seen and examined at bedside. Doing well. Eating and drinking well. No nausea. Having normal bowel movements. Pain well-controlled. Denies any chest pain or shortness of breath. Vital signs reviewed General: Nontoxic, no distress, appears at stated age Cardiovascular: S1S2 reg, no murmur Lungs: CTA bilateral, no rhonchi, no rales, no accessory muscle use Abdominal: Soft, nontender to palpation, no guarding, ARIE drain in place with serosanaginous drainage. Ext: No gross muscle atrophy, no edema b/l lower extremities, no contractures Neuro: CN II-XI grossly intact, no focal neuro deficits Psych: Alert, oriented, appropriate affect Assessment/Plan: Appendicitis with perforated appendix, abscess formation, and sepsis status postinitial appendectomy in 06/20 with washout and ARIE drain placement on 06/26 Transaminitis Thrombocytosis, suspect reactive Anemia, suspect secondary to blood draws and dilution -Found to have pseudomonal infection which is pansensitive. Case discussed with Dr. Reyna. Plan is for repeat CT on 07/02 and if abscess is improved can be discharged home on oral antibiotics. -Continues to spike fevers with Tmax of 100.7 in the last 24 hours. -Cefepime 2 g IVPB every 8 hours, Flagyl 500 mg p.o. 3 times daily -Follow CBC -Surgery is primary HTN HLD -Resume Lipitor 40 mg daily. -BP currently well-controlled continue to hold Cozaar. Imaging: None new Data Review: Labs reviewed from today include CBC and basic metabolic profile which are remarkable for white blood cell count of 11.5, hemoglobin 12, platelets 709, AST 101, and ALT of 128. Thank you for allowing us to participate in the care of this pleasant patient. Do not hesitate to contact us with questions. Someone can be reached from the [facility] hospitalist group all hours of the day at [phone] or via [employer] serve. This dictation was prepared using [employer] voice recognition software. Though every attempt is made to correct errors during dictation some may still exist. Objective - Vital Signs Vital signs: Vital Signs Temp 98.1 F 06/30/24 14:00 Pulse 84 06/30/24 14:00 Resp 17 06/30/24 14:00 BP 136/75 06/30/24 14:00 Pulse Ox 96 06/30/24 14:00 FiO2 Intake & Output 06/29/24 06/30/24 06/30/24 18:59 06:59 18:59 Intake Total 890 240 Output Total 10 10 Balance 880 230 Intake: Intake, IV Titration 650 Amount DAPTOmycin 500 mg In 50 Sodium Chloride 0.9% 50 ml @ 100 mls/hr IVPB Q24H [facility] Rx#:[id number] Lactated Ringers 1,000 ml 600 @ 75 mls/hr IV .[id number] [facility] Rx#:[id number] Oral 240 240 Output: Drainage 10 10 Right Abdomen 10 10 Other: Voiding Method Toilet Toilet # Voids 1 1 - Labs CBC & Chem 7: 06/30/24 09:20 06/30/24 09:20 Labs: Abnormal Lab Results - Last 24 Hours (Table) 06/30/24 06/30/24 Range/Units 09:20 09:20 WBC 11.5 H (3.8-10.6) k/uL RBC 4.00 L (4.30-5.90) m/uL Hgb 12.0 L (13.0-17.5) gm/dL Hct 37.7 L (39.0-53.0) % Plt Count 709 H D (150-450) k/uL Neutrophils # 9.1 H (1.3-7.7) k/uL Glucose 144 H (74-99) mg/dL AST 101 H (17-59) U/L ALT 128 H (4-49) U/L Alkaline Phosphatase 157 H (38-126) U/L Albumin 3.2 L (3.5-5.0) g/dL Microbiology - Last 24 Hours (Table) 06/26/24 16:20 Gram Stain - Final Abdomen Wound Culture - Final Pseudomonas aeruginosa 06/26/24 16:20 Gram Stain - Final Aspirate Body Fluid Culture - Final Pseudomonas aeruginosa 06/28/24 15:06 Blood Culture - Preliminary Blood 06/26/24 16:20 Anaerobic Culture - Preliminary Abdominal Fluid Bacteroides vulgatus Bacteroides uniformis 06/26/24 16:20 Anaerobic Culture - Preliminary Abdominal Fluid Bacteroides thetaiotaomicron
[2024-06-30] MEDS: metroNIDAZOLE 500 MG TAB PO SCH (16:22)
[2024-06-30] MEDS: CEFEPIME 2 GM in SODIUM CHLORIDE 0.9% 100 ML IVPB SCH (16:23)
[2024-07-01] MEDS ORDERED: IOPAMIDOL CONTRAST (ORAL USE) VIAL PO PRN (07:36)
[2024-07-01 09:04] LABS: HCT 36.7 % (39.6-50.0); HGB 11.8 g/dL (13.0-17.0); MCH 29.6 pg (27.0-32.0); MCHC 32.2 g/dL (32.0-37.0); MCV 92.2 FL (80.0-97.0); Mean Platelet Volume 8.5 FL (9.5-12.2); NRBC Per 100 WBC 0 X 10*3/uL (0.00-0.01); Platelet Count 738 X 10*3/uL (140-440); RBC 3.98 X 10*6/uL (4.40-5.60); RDW 13.9 % (11.5-14.5); WBC 10.22 X 10*3/uL (4.50-10.00)
[2024-07-01 09:26] LABS: Magnesium 2.2 mg/dL (1.5-2.4); Phosphorus 3.3 mg/dL (2.4-5.1)
[2024-07-01 09:29] LABS: Blood Urea Nitrogen 11.1 mg/dL (9.0-27.0); Carbon Dioxide 25.5 mmol/L (21.6-31.8); Chloride 104 mmol/L (96-109); Glucose 118 mg/dL (70-110); Potassium 4.6 mmol/L (3.5-5.5); Sodium 139 mmol/L (135-145)
[2024-07-01 09:30] LABS: ALT 137 U/L (10-49); AST 97 U/L (14-35); Albumin 3.3 g/dL (3.8-4.9); Albumin/Globulin Ratio 1.06 Ratio (1.60-3.17); Alkaline Phosphatase 155 U/L (41-126); Calcium 8.7 mg/dL (8.7-10.3); Globulin 3.1 g/dL (1.6-3.3); Total Bilirubin 0.3 mg/dL (0.3-1.2); Total Protein 6.4 g/dL (6.2-8.2)
--- NOTE | 2024-07-01 10:56 | CT ---
EXAMINATION TYPE: CT abdomen pelvis w con DATE OF EXAM: 07/01/2024 COMPARISON: 06/24/2024 CLINICAL INDICATION: Male, 59 years old with history of abdominal pain; PHH, abdominal pain, recent a ppy and other sx complications. TECHNIQUE: Performed with Oral Contrast and with IV Contrast, patient injected with 100ml mL of Isovue 300. CT DLP: 943.[address] CTDI: mGy Automated exposure control for dose reduction was used. FINDINGS: Bibasilar lung infiltrates slightly more prominent in the left lower lobe compared to the prior study . Findings are consistent with atelectasis and/or bibasilar pneumonias. The gallbladder is normal without distention, wall thickening, pericholecystic fluid or gallstones. T here is no biliary ductal dilatation. There is no focal mass or organomegaly involving the liver, pancreas, spleen or adrenal glands. There is no solid renal mass or hydronephrosis and there is homogeneous contrast enhancement of the r enal parenchyma. There are 2 nonobstructing right renal calculi the largest of which is approximately 5 mm. There is a 6 mm nonobstructing left renal calculus. The caliber the abdominal aorta is normal is no retroperitoneal adenopathy or hemorrhage. There is a drainage catheter entering the right abdomen terminating in the lateral left mid abdomen b ut there is no abscess or fluid collection surrounding the drainage tube tip. There is a 5 cm thick-walled fluid collection anterior to the rectum consistent with an abscess. It h as decreased in size from 6.7 x 4.8 cm in the interval. The 3.2 cm abscess in the superior aspect of the right pelvis has resolved in the interval. The bowel loops are normal in caliber and there is no evidence of obstruction. There is no free intraperitoneal air. There is minimal free intraperitoneal fluid. There is no free intraperitoneal air or fluid. The osseous structures and soft tissues are intact. IMPRESSION: 1. Intra-abdominal drainage catheter tip in the left lateral mid abdomen with no surrounding fluid co llection. 2. Right pelvic abscess has resolved. 3. Decrease in the low midline pelvic abscess from 6.8 cm to 5 cm. 4. nonobstructing bilateral renal calcifications. 5. Bibasilar infiltrates consistent with pneumonia or atelectasis.. [facility], , 07/01/2024 10:54 AM
[2024-07-01 12:43] LABS: BUN/Creat Ratio 12.67 Ratio (12.00-20.00); Blood Urea Nitrogen 11.4 mg/dL (9.0-27.0); Calcium 8.6 mg/dL (8.7-10.3); Carbon Dioxide 24.6 mmol/L (21.6-31.8); Chloride 104 mmol/L (96-109); Glucose 105 mg/dL (70-110); Potassium 4.6 mmol/L (3.5-5.5); Sodium 138 mmol/L (135-145)
--- NOTE | 2024-07-01 13:43 | P.PN ---
Subjective Progress Note Date: 07/01/24 Principal diagnosis: Reason for follow-up is fever perforated appendicitis Patient is a 59-year-old male with a past medical history significant for hypertension hyperlipidemia presenting to the hospital for evaluation of abdominal pain patient has been diagnosed with perforated appendicitis in this patient who is status post laparoscopic appendectomy completed on 06/19/2024 patient has been running a fever prompting this consultation on 06/22/2024. Patient is status post laparoscopic converted to open abdominal washout removal of retained fecalith placement of the ARIE drain procedure completed on 06/26/2024. On today's evaluation that is 07/01/2024, Patient is afebrile patient is currently on room air and denies having any shortness of breath, the patient denies any chest pain or cough, the patient denies any nausea vomiting abdominal pain has decreased intensity mention feeling slightly better. Patient did have a creatinine 0.9 white count is down to 10.22 patient did have repeat CT abdominal pelvis overall improvement and no new abscess Objective - Vital Signs Vital signs: Vital Signs Temp 98.3 F 07/01/24 08:00 Pulse 66 07/01/24 08:30 Resp 17 07/01/24 08:30 BP 121/80 07/01/24 08:00 Pulse Ox 94 L 07/01/24 08:00 FiO2 Intake & Output 06/30/24 07/01/24 07/01/24 18:59 06:59 18:59 Intake Total 360 Output Total 10 5 5 Balance 350 -5 -5 Intake: Oral 360 Output: Drainage 10 5 5 Right Abdomen 10 5 5 Other: Voiding Method Toilet Toilet Toilet # Voids 3 3 - Exam GENERAL DESCRIPTION: Middle-age male lying in bed in no distress RESPIRATORY SYSTEM: Unlabored breathing , decreased breath sounds at bases HEART: S1 S2 regular rate and rhythm , ABDOMEN: Soft mild distention but no significant tenderness EXTREMITIES: No edema feet - Labs CBC & Chem 7: 07/01/24 03:36 07/01/24 07:00 Labs: Abnormal Lab Results - Last 24 Hours (Table) 07/01/24 07/01/24 07/01/24 Range/Units 03:36 03:36 07:00 WBC 10.22 H (4.50-10.00) X 10*3/uL RBC 3.98 L (4.40-5.60) X 10*6/uL Hgb 11.8 L (13.0-17.0) g/dL Hct 36.7 L (39.6-50.0) % Plt Count 738 H (140-440) X 10*3/uL MPV 8.5 L (9.5-12.2) FL BUN/Creatinine Ratio 11.10 L (12.00-20.00) Ratio Glucose 118 H (70-110) mg/dL Calcium 8.6 L (8.7-10.3) mg/dL AST 97 H (14-35) U/L ALT 137 H (10-49) U/L Alkaline Phosphatase 155 H (41-126) U/L Albumin 3.3 L (3.8-4.9) g/dL Albumin/Globulin Ratio 1.06 L (1.60-3.17) Ratio Microbiology - Last 24 Hours (Table) 06/26/24 16:20 Anaerobic Culture - Final Abdominal Fluid Bacteroides thetaiotaomicron 06/26/24 16:20 Anaerobic Culture - Final Abdominal Fluid Bacteroides vulgatus Bacteroides uniformis 06/28/24 15:06 Blood Culture - Preliminary Blood 06/26/24 16:20 Gram Stain - Final Abdomen Wound Culture - Final Pseudomonas aeruginosa 06/26/24 16:20 Gram Stain - Final Aspirate Body Fluid Culture - Final Pseudomonas aeruginosa Assessment and Plan (1) Sepsis Current Visit: Yes Status: Acute Code(s): A41.9 - SEPSIS, UNSPECIFIED ORGANISM SNOMED Code(s): 55843618 (2) Peritonitis Current Visit: Yes Status: Acute Code(s): K65.9 - PERITONITIS, UNSPECIFIED SNOMED Code(s): 21629093 (3) Perforated appendix Current Visit: Yes Status: Acute Code(s): K35.32 - AC APPENDICITIS W PERF, LOC PERITONITIS, & GANGR, W/O ABSCS SNOMED Code(s): 60757356 Plan: 1patient with the persistent fever in this patient presented to hospital with abdominal pain and has been diagnosed with perforated appendicitis status post laparoscopic appendectomy and likely on recent negative COVID with enteric gram- negative both aerobes and anaerobes patient has been on Zosyn still running a fever which is slightly concerning unfortunately no OR culture were done that would have guide further antibiotic therapy 2-patient still running low-grade fever white count slightly up today CT abdominal pelvis now with evidence of mild and abdominal abscess 3IR has not been able to do the drainage of the abscess and the patient is status post laparoscopic converted to open abdominal washout removal of retained fecalith ARIE drain placement as well as abdominal culture currently growing Pseudomonas which is pansensitive as well as bacteroids 4patient did have a CT abdominal pelvis on 07/01/2024 which was overall decrease in size of the abscess and only abscess 5we will recommend a 2-week course of oral Cipro 750 mg twice a day and Flagyl 500 mg 3 times a day once stable for discharge, for now continue cefepime and Flagyl while inpatient Dictation was produced using [employer] dictation software. please excuse any grammatical, word or spelling errors. Time with Patient: Less than 30
[2024-07-01 15:02] VITALS: BP 139/81; PULSE 75; RESP 16; TEMP 98.6
--- NOTE | 2024-07-01 15:16 | P.PN ---
Subjective Progress Note Date: 07/01/24 (delayed charting seen at 1015) Patient is a 59-year-old male with history of hypertension dyslipidemia admitted with appendicitis and underwent laparoscopic Actamin ectomy on 06/20/2024 required open washout due to ruptured appendicitis with retained fecalith and placement of ARIE drain on 06/26/2024 and abscess formation. Patient seen and examined at bedside. Feeling well. Continuing to tolerate eating and drinking well. No acute complaints. Wants to go home. Vital signs reviewed General: Nontoxic, no distress, appears at stated age Cardiovascular: S1S2 reg, no murmur Lungs: CTA bilateral, no rhonchi, no rales, no accessory muscle use Abdominal: Soft, nontender to palpation, no guarding, ARIE drain in place with serosanaginous drainage. Ext: No gross muscle atrophy, no edema b/l lower extremities, no contractures Neuro: CN II-XI grossly intact, no focal neuro deficits Psych: Alert, oriented, appropriate affect Assessment/Plan: Appendicitis with perforated appendix, abscess formation, and sepsis status postinitial appendectomy in 06/20 with washout and ARIE drain placement on 06/26 Transaminitis, improving Thrombocytosis, suspect reactive Anemia, suspect secondary to blood draws and dilution -Abscess improved on repeat CT today. -Continues to spike fevers with Tmax of 100.7 in the last 24 hours. -Cefepime 2 g IVPB every 8 hours, Flagyl 500 mg p.o. 3 times daily -Infectious disease note reviewed. 2-week course of Cipro and Flagyl as ou tpatient once stable for discharge. -Follow CBC, recommend repeat in [address] Tucker's office (emanuel Mobley). -Surgery is primary - medically optimized for discharge at the discretion of surgery. Order for outpatient blood work placed in chart. HTN HLD -Lipitor 40 mg daily. -BP currently well-controlled continue to hold Cozaar. Imaging: CBC and CMP reviewed remarkable for white blood cell count of 10.22, platelets 738, AST 97, ALT 137. Data Review: Repeat CT abdomen/pelvis performed today, no continued fluid collection near drain, decreasing low midline pelvic abscess from 6.8 cm to 5 cm, right pelvic abscess resolved. Thank you for allowing us to participate in the care of this pleasant patient. Do not hesitate to contact us with questions. Someone can be reached from the [facility] hospitalist group all hours of the day at [phone] or via perfect serve. This dictation was prepared using [employer] voice recognition software. o [facility] every attempt is made to correct errors during dictation some may still exist. Objective - Vital Signs Vital signs: Vital Signs Temp 98.6 F 07/01/24 14:00 Pulse 75 07/01/24 14:00 Resp 16 07/01/24 14:00 BP 139/81 07/01/24 14:00 Pulse Ox 98 07/01/24 14:00 FiO2 Intake & Output 06/30/24 07/01/24 07/01/24 18:59 06:59 18:59 Intake Total 360 240 Output Total 10 5 5 Balance 350 -5 235 Intake: Oral 360 240 Output: Drainage 10 5 5 Right Abdomen 10 5 5 Other: Voiding Method Toilet Toilet Toilet # Voids 3 3 - Labs CBC & Chem 7: 07/01/24 03:36 07/01/24 07:00 Labs: Abnormal Lab Results - Last 24 Hours (Table) 07/01/24 07/01/24 07/01/24 Range/Units 03:36 03:36 07:00 WBC 10.22 H (4.50-10.00) X 10*3/uL RBC 3.98 L (4.40-5.60) X 10*6/uL Hgb 11.8 L (13.0-17.0) g/dL Hct 36.7 L (39.6-50.0) % Plt Count 738 H (140-440) X 10*3/uL MPV 8.5 L (9.5-12.2) FL BUN/Creatinine Ratio 11.10 L (12.00-20.00) Ratio Glucose 118 H (70-110) mg/dL Calcium 8.6 L (8.7-10.3) mg/dL AST 97 H (14-35) U/L ALT 137 H (10-49) U/L Alkaline Phosphatase 155 H (41-126) U/L Albumin 3.3 L (3.8-4.9) g/dL Albumin/Globulin Ratio 1.06 L (1.60-3.17) Ratio Microbiology - Last 24 Hours (Table) 06/26/24 16:20 Anaerobic Culture - Final Abdominal Fluid Bacteroides thetaiotaomicron 06/26/24 16:20 Anaerobic Culture - Final Abdominal Fluid Bacteroides vulgatus Bacteroides uniformis 06/28/24 15:06 Blood Culture - Preliminary Blood
--- NOTE | 2024-07-01 15:18 | P.PN ---
Subjective Patient seen and evaluated at bedside. Patient doing well, afebrile overnight. Tolerating diet, denies nausea or vomiting. Objective - Vital Signs Vital signs: Vital Signs Temp 98.6 F 07/01/24 14:00 Pulse 75 07/01/24 14:00 Resp 16 07/01/24 14:00 BP 139/81 07/01/24 14:00 Pulse Ox 98 07/01/24 14:00 FiO2 Intake & Output 06/30/24 07/01/24 07/01/24 18:59 06:59 18:59 Intake Total 360 240 Output Total 10 5 5 Balance 350 -5 235 Intake: Oral 360 240 Output: Drainage 10 5 5 Right Abdomen 10 5 5 Other: Voiding Method Toilet Toilet Toilet # Voids 3 3 - Exam gen: nad cv: rrr pul: non labored breathing abd: soft, non distended, tender to palpation around incisions, mychal drain serosang output. - Labs CBC & Chem 7: 07/01/24 03:36 07/01/24 07:00 Labs: Abnormal Lab Results - Last 24 Hours (Table) 07/01/24 07/01/24 07/01/24 Range/Units 03:36 03:36 07:00 WBC 10.22 H (4.50-10.00) X 10*3/uL RBC 3.98 L (4.40-5.60) X 10*6/uL Hgb 11.8 L (13.0-17.0) g/dL Hct 36.7 L (39.6-50.0) % Plt Count 738 H (140-440) X 10*3/uL MPV 8.5 L (9.5-12.2) FL BUN/Creatinine Ratio 11.10 L (12.00-20.00) Ratio Glucose 118 H (70-110) mg/dL Calcium 8.6 L (8.7-10.3) mg/dL AST 97 H (14-35) U/L ALT 137 H (10-49) U/L Alkaline Phosphatase 155 H (41-126) U/L Albumin 3.3 L (3.8-4.9) g/dL Albumin/Globulin Ratio 1.06 L (1.60-3.17) Ratio Microbiology - Last 24 Hours (Table) 11/26/24 16:20 Anaerobic Culture - Final Abdominal Fluid Bacteroides thetaiotaomicron 06/26/24 16:20 Anaerobic Culture - Final Abdominal Fluid Bacteroides vulgatus Bacteroides uniformis 06/28/24 15:06 Blood Culture - Preliminary Blood Assessment and Plan Assessment: 59 year old male POD #4 Laparoscopic Converted to Open Abdominal Washout, Fecalith Removal, and MYCHAL drain placement -Low Fat Diet -Continue abx per ID -CTAP demonstrates resolving fluid collections and pelvic abscess decreasing in size -Pain and Nausea Control -wbc trending down to 11, -discharge pending ID recs [facility] [phone] Time with Patient: Less than 30
[2024-07-02] MEDS ORDERED: IBUPROFEN 400 MG TAB PO PRN (16:00)
== END 2024-07-01 19:49 | disposition home or self-care (01) | DRG 853 ==
LOC: EC 13:20 → 4SSUR 16:08 → OBSVTOIN 16:09 → 4SSUR 17:22
PROVIDERS: ADMIT Surgery; ATTEND Surgery
PROC: 0DTJ4ZZ Resection of Appendix, Percutaneous Endoscopic Approach (ICD-10-PCS; principal; 2024-06-19 17:45)
PROC: 0DS84ZZ Reposition Small Intestine, Percutaneous Endoscopic Approach (ICD-10-PCS; 2024-06-26)
PROC: 0W9G4ZX Drainage of Peritoneal Cavity, Percutaneous Endoscopic Approach, Diagnostic (ICD-10-PCS; 2024-06-26)
PROC: 0WJG4ZZ Inspection of Peritoneal Cavity, Percutaneous Endoscopic Approach (ICD-10-PCS; 2024-06-26)
PROC: 3E1M38Z Irrigation of Peritoneal Cavity using Irrigating Substance, Percutaneous Approach (ICD-10-PCS; 2024-06-26)
DX: A41.9 Sepsis, unspecified organism (principal); K35.33 Acute appendicitis with perforation, localized peritonitis, and gangrene, with abscess; K38.1 Appendicular concretions; B96.5 Pseudomonas (aeruginosa) (mallei) (pseudomallei) as the cause of diseases classified elsewhere; E78.5 Hyperlipidemia, unspecified; I10 Essential (primary) hypertension; D75.839 Thrombocytosis, unspecified; D64.9 Anemia, unspecified; F17.210 Nicotine dependence, cigarettes, uncomplicated; Z53.31 Laparoscopic surgical procedure converted to open procedure; Z79.899 Other long term (current) drug therapy; Z82.49 Family history of ischemic heart disease and other diseases of the circulatory system
CPT/HCPCS: 36415; 74177; 80048; 80053; 81001; 82150; 83605; 83690; 83735; 84100; 85025; 85027; 85610; 85730; 86140; 87040; 87070; 87075; 87077; 87186; 87205; 87636; 88304; 94760; 96365; 96375; 99285